=== PATIENT | female | born 1960 | race Caucasian/White ===

== ENCOUNTER → 2018-04-03 07:51 | Outpatient (CLI) | payer OTHER, SELFPAY ==
[2018-04-03 10:39] LABS: Anion Gap 6 (5-15); BUN 20 mg/dL (7-18); BUN/Creat Ratio 22.1 RATIO (10-20); Calcium,Total 9.3 mg/dL (8.5-10.1); Chloride 108 mmol/L (98-107); Cholesterol 236 mg/dL (200); Creatinine, Serum 0.91 mg/dL (0.55-1.02); EST Glomerular Filtration Rate 67 mL/min (>60); Est Glom Filt Rate - Afr Amer 82 mL/min (>60); Glucose 94 mg/dL (74-106); High Density Lipoprotein 62 mg/dL; Potassium 4.3 mmol/L (3.5-5.1); Sodium Level 142 mmol/L (136-145); Thyroid Stim Hormone (TSH) 1.63 uIU/mL (0.358-3.74); Triglycerides 166 mg/dL; Very Low Density Lipoprotein 33 mg/dL (5-40)
== END ==
PROVIDERS: Family Provider Family Medicine; PCP Family Medicine; Visit Provider Family Medicine
DX: E55.9 Vitamin D deficiency, unspecified (principal); E66.9 Obesity, unspecified; E78.00 Pure hypercholesterolemia, unspecified
CPT/HCPCS: 36415; 80048; 80061; 82306; 84443

== ENCOUNTER → 2018-05-07 06:15 | Outpatient (CLI) | payer OTHER, SELFPAY ==
--- NOTE | 2018-05-07 18:29 | STRESSREP ---
Stress Test Report Date: 05/07/2018 Procedure: Exercise tolerance test/imaging study Indications: Family history of coronary artery disease Consent: Per the patient Procedure: The patient exercised on a Anam protocol for 9 minutes and 15 seconds completing Stage III and 15 seconds of Stage IV achieving a peak heart rate of 162 bpm (100 % predicted maximal heart rate) with a peak blood pressure 164/68 mmHg and a peak MET capacity of 10 METs. The baseline ECG demonstrated normal sinus rhythm. The peak exercise ECG demonstrated no obvious ECG changes. There were no cardiac dysrhythmias pretest, during exercise, or recovery. The functional capacity was considered good. There was no complaint of chest discomfort during exercise or recovery. The examination was discontinued secondary to leg discomfort. Impression: 1. Technically adequate (percent predicted maximal heart rate greater than 85%) exercise tolerance test 2. Peak exercise ECG no obvious ECG changes 3. There were no cardiac dysrhythmias pretest, during exercise, or recovery. 4. Nuclear images pending Myocardial perfusion imaging study: Technique: The patient was injected with 11.2 mCi of technetium 99m Cardiolite and subsequently rest SPECT Cardiolite nuclear imaging was obtained in the horizontal long, vertical long, and short axis views. The patient exercised on a Anam protocol for 9 minutes and 15 seconds completing Stage III and 15 seconds of Stage IV achieving a peak heart rate of 162 bpm (100 % predicted maximal heart rate) with a peak blood pressure 164/68 mmHg and a peak MET capacity of 10 METs. The patient was injected with a 2.1 mCi of technetium 99m Cardiolite and subsequently stress SPECT Cardiolite nuclear imaging was obtained in the horizontal long, vertical long, and short axis views. A gated Cardiolite study at peak stress was obtained. Interpretation: Rest and stress SPECT Cardiolite nuclear imaging status post realignment, normalization, and attenuation correction, demonstrates the appearance of relative uniform tracer uptake and myocardial perfusion appearing within normal limits. There is end systolic thickening and brightening. The gated Cardiolite study demonstrates myocardial thickening and inward wall motion. The reported LVEF is 78 %. Impression: 1. Rest and stress SPECT Cardiolite nuclear imaging demonstrate relative uniform tracer uptake and myocardial perfusion appearing within normal limits. 2. The gated Cardiolite study reports an LVEF of 78 %. This note was generated with [employer] software. It may contain incorrect words, spelling, and punctuation that were not noted in checking the note before signing.
--- NOTE | 2018-05-07 18:34 | STRESSREP_ITS ---
Stress Test Report Date: 05/07/2018 Procedure: Exercise tolerance test/imaging study Indications: Family history of coronary artery disease Consent: Per the patient Procedure: The patient exercised on a Anam protocol for 9 minutes and 15 seconds completing Stage III and 15 seconds of Stage IV achieving a peak heart rate of 162 bpm (100 % predicted maximal heart rate) with a peak blood pressure 164/68 mmHg and a peak MET capacity of 10 METs. The baseline ECG demonstrated normal sinus rhythm. The peak exercise ECG demonstrated no obvious ECG changes. There were no cardiac dysrhythmias pretest, during exercise, or recovery. The functional capacity was considered good. There was no complaint of chest discomfort during exercise or recovery. The examination was discontinued secondary to leg discomfort. Impression: 1. Technically adequate (percent predicted maximal heart rate greater than 85% ) exercise tolerance test 2. Peak exercise ECG no obvious ECG changes 3. There were no cardiac dysrhythmias pretest, during exercise, or recovery. 4. Nuclear images pending Myocardial perfusion imaging study: Technique: The patient was injected with 11.2 mCi of technetium 99m Cardiolite and subsequently rest SPECT Cardiolite nuclear imaging was obtained in the horizontal long, vertical long, and short axis views. The patient exercised on a Anam protocol for 9 minutes and 15 seconds completing Stage III and 15 seconds of Stage IV achieving a peak heart rate of 162 bpm (100 % predicted maximal heart rate) with a peak blood pressure 164/68 mmHg and a peak MET capacity of 10 METs. The patient was injected with a 2.1 mCi of technetium 99m Cardiolite and subsequently stress SPECT Cardiolite nuclear imaging was obtained in the horizontal long, vertical long, and short axis views. A gated Cardiolite study at peak stress was obtained. Interpretation: Rest and stress SPECT Cardiolite nuclear imaging status post realignment, normalization, and attenuation correction, demonstrates the appearance of relative uniform tracer uptake and myocardial perfusion appearing within normal limits. There is end systolic thickening and brightening. The gated Cardiolite study demonstrates myocardial thickening and inward wall motion. The reported LVEF is 78 %. Impression: 1. Rest and stress SPECT Cardiolite nuclear imaging demonstrate relative uniform tracer uptake and myocardial perfusion appearing within normal limits. 2. The gated Cardiolite study reports an LVEF of 78 %. This note was generated with [employer] software. It may contain incorrect words, spelling, and punctuation that were not noted in checking the note before signing.
== END ==
PROVIDERS: Family Provider Family Medicine; PCP Family Medicine; Visit Provider Family Medicine
DX: Z82.49 Family history of ischemic heart disease and other diseases of the circulatory system (principal)
CPT/HCPCS: 78452; 93017; A9500; A4216

== ENCOUNTER → 2018-07-15 08:29 | Outpatient (CLI) | payer OTHER, SELFPAY ==
[2018-07-15 10:31] LABS: Vitamin D,25 Hydroxy 52.5 ng/mL (29.95-100.01)
== END ==
PROVIDERS: Family Provider Family Medicine; PCP Family Medicine; Visit Provider Family Medicine
DX: E55.9 Vitamin D deficiency, unspecified (principal)
CPT/HCPCS: 36415; 82306

== ENCOUNTER → 2018-07-29 15:41 | Outpatient (CLI) | payer OTHER, SELFPAY ==
--- NOTE | 2018-07-29 15:44 | ECHOD_ITS ---
Reason For Study: MYOCARDIAL HYPERTROPHY Procedure This was a 2D Doppler, Color Flow transthoracic echocardiogram. Exam performed in department. Left Ventricle Normal LV size. Left ventricular systolic function is normal. The estimated ejection fraction is 60 %. Transmitral diastolic flow velocities suggest mild (stage 1) diastolic dysfunction (reversed pattern). No regional wall motion abnormalities noted. Right Ventricle Normal RV size. Normal systolic function. Atria Normal left atrium. Normal right atrium. Mitral Valve Normal mitral valve. Tricuspid Valve Normal tricuspid valve. Mild tricuspid valve insufficiency. Pulmonary artery systolic pressure is 25 mmHg. Aortic Valve Normal aortic valve. Trisinus/trileaflet aortic valve. Pulmonic Valve Normal pulmonic valve. Great Vessels Normal aortic root. The pulmonary artery is normal size. Normal inferior vena cava. Pericardium/Pleural No pericardial effusion. MMode/2D Measurements & Calculations LVIDd: 3.8 cm IVSd: 1.1 cm Ao root diam: 3.4 cm LVIDs: 2.2 cm LVPWd: 1.1 cm RVDd: 2.8 cm FS: 42.0 % LAV(MOD-bp): 40.8 ml LA A4 area: 15.5 cm2 RA A4 area: 14.5 cm2 LAV(MOD-bp) Indexed: 25.0 ml/m2 LAV(MOD-sp2): 41.5 ml LAV(MOD-sp4): 37.6 ml Time Measurements MV dec time: 0.18 sec Doppler Measurements & Calculations MV E max sammy: 63.5 cm/sec Lat Peak E' Sammy: 10.4 cm/sec Med Peak E' Sammy: 7.0 cm/sec MV A max sammy: 66.9 cm/sec E/E' lat: 6.1 E/E' med: 9.0 MV E/A: 0.95 Ao V2 max: 109.7 cm/sec LV V1 max: 101.6 cm/sec TR max sammy: 227.7 cm/sec Ao max P.8 mmHg LV V1 max P.1 mmHg TR max P.8 mmHg Interpretation Summary Normal LV size. Left ventricular systolic function is normal. The estimated ejection fraction is 60 %. Transmitral diastolic flow velocities suggest mild (stage 1) diastolic dysfunction (reversed pattern). Mild tricuspid valve insufficiency. Ordering Physician: Neno eLe Referring Physician: Neno Lee Performed By: Lila Nation, KERI, RVT
== END ==
PROVIDERS: Family Provider Family Medicine; PCP Family Medicine; Visit Provider Family Medicine
DX: I51.7 Cardiomegaly (principal)
CPT/HCPCS: 93306

== ENCOUNTER → 2018-10-08 08:08 | Outpatient (CLI) | payer OTHER, SELFPAY ==
--- NOTE | 2018-10-08 08:11 | BI_ITS ---
MAMMOGRAPHY - BILATERAL SCREENING REASON FOR EXAM: Female, 57 years old. Routine annual screening examination. PERTINENT HISTORY: Non-contributory. TECHNIQUE: Digital bilateral breast david (3D mammographic acquisition) in the CC and MLO projections. 2-D mediolateral oblique (MLO) and craniocaudad (CC) views of both breasts were obtained. CAD: Full Field Digital Mammography with Computer Added Detection was performed. COMPARISON: Comparison is made with prior study dated September 28, 2017 and September 25, 2016. FINDINGS: Breast Composition: There are scattered areas of fibroglandular density. There are no dominant masses or suspicious calcifications. Stable small benign-appearing bilateral axillary lymph nodes. No other significant abnormalities are identified. There has been no significant change since the prior study. BI/SCREENING MAMM (CAD), BILAT IMPRESSION: Stable bilateral screening mammogram. Yearly follow-up mammogram recommended. (A) ASSESSMENT CATEGORY: BIRADS Category 2: Benign. A letter regarding these results will be sent to the patient by the facility within 30 days. Approximately 10% of breast cancers are not detected by mammography. A normal mammogram should not delay biopsy of a clinically suspicious abnormality. [id number] Electronically Signed: Lawrence Mccoy MD at 9:16 EST Tel [phone], Service support ,
== END ==
PROVIDERS: Family Provider Family Medicine; PCP Family Medicine; Visit Provider Obstetrics & Gynecology
DX: Z12.31 Encounter for screening mammogram for malignant neoplasm of breast (principal)
CPT/HCPCS: 77063; 77067

== ENCOUNTER → 2018-10-09 10:22 | Outpatient (CLI) | payer OTHER, SELFPAY ==
--- NOTE | 2018-10-09 10:28 | US_ITS ---
STUDY: RENAL ULTRASOUND - COMPLETE REASON FOR EXAM: Female, 57 years old. Renal cyst. Hematuria. TECHNIQUE: Ultrasound evaluation of the kidneys was performed with real-time and static yuan-scale imaging. COMPARISON: 08/28/2017. FINDINGS: RIGHT KIDNEY: Normal location of the right kidney, which is normal in size. The right kidney measures 11.0 x 3.7 x 4.2 cm. There is a normal cortex of the right kidney. The renal cortex measures 1.4 cm. There is no right renal mass or cyst. There are no right renal calculi. There is no right hydronephrosis. DISTAL RIGHT URETER: There is non-visualization of the distal right ureter. There is no demonstrated right ureterovesical junction calculus. There is a visualized right ureteral jet. LEFT KIDNEY: Normal location of the left kidney, which is normal in size. The left kidney measures 11.8 x 5.2 x 6.3 cm. There is a normal cortex of the left kidney. The renal cortex measures 1.2 cm. 2 stable renal cysts. One measures 4.2 cm and the other measures 1.3 cm. There are no left renal calculi. There is no left hydronephrosis. DISTAL LEFT URETER: There is non-visualization of the distal left ureter. There is no demonstrated left ureterovesical junction calculus. There is a visualized left ureteral jet. BLADDER: The distended urinary bladder has a volume of 77 ml. There is a normal wall thickness of the distended urinary bladder. There is no demonstrated mass within the urinary bladder. There are no demonstrated bladder calculi. US/Kidney and Bladder IMPRESSION: No acute abnormality. Stable left renal cyst measuring 1.3 and 4.2 cm. Electronically Signed: Westley Huntley MD at 23:51 EST , Service support ,
== END ==
PROVIDERS: Family Provider Family Medicine; PCP Family Medicine; Referring Provider Urology; Visit Provider Urology
DX: N28.1 Cyst of kidney, acquired (principal); R31.9 Hematuria, unspecified
CPT/HCPCS: 76770

== ENCOUNTER → 2018-11-18 14:36 | Outpatient (CLI) | payer OTHER, SELFPAY ==
[2018-11-18 15:43] LABS: Hematocrit 42.2 % (37-47); Hemoglobin 13.4 g/dl (12.0-15.0); Mean Corp Hgb Conc 31.8 g/gl (32-36); Mean Corpuscular Hgb 28.9 pg (27.0-32.0); Mean Corpuscular Volume 90.9 fL (81-99); Mean Platelet Vol. 9.2 fl (6.2-12.0); Platelet Count 220 K/mm3 (150-450); RBC Distribution Width CV 13.1 % (11.6-14.6); Red Blood Count 4.64 M/mm3 (4.2-5.4); White Blood Count 5.4 K/mm3 (4.4-11.0)
[2018-11-18 15:51] LABS: Scan Indicated on CBC? Y/N NO
[2018-11-18 16:28] LABS: Anion Gap 9 (5-15); BUN 21 mg/dL (7-18); BUN/Creat Ratio 26.4 RATIO (10-20); Calcium,Total 9.6 mg/dL (8.5-10.1); Chloride 104 mmol/L (98-107); EST Glomerular Filtration Rate 78 mL/min (>60); Est Glom Filt Rate - Afr Amer 95 mL/min (>60); Glucose 95 mg/dL (74-106); Magnesium 2.1 mg/dL (1.6-2.6); Potassium 3.8 mmol/L (3.5-5.1); Sodium Level 140 mmol/L (136-145); Thyroid Stim Hormone (TSH) 0.98 uIU/mL (0.358-3.74)
== END ==
PROVIDERS: Family Provider Family Medicine; PCP Family Medicine; Visit Provider Family Medicine
DX: R55 Syncope and collapse (principal)
CPT/HCPCS: 36415; 80048; 83735; 84443; 85027

== ENCOUNTER → 2019-03-12 | Outpatient (CLI) | payer OTHER, SELFPAY ==
[2019-03-12 10:35] LABS: Cholesterol 251 mg/dL (200); High Density Lipoprotein 71 mg/dL; Triglycerides 129 mg/dL; Very Low Density Lipoprotein 26 mg/dL (5-40)
[2019-03-12 10:44] LABS: Vitamin D,25 Hydroxy 42.4 ng/mL (29.95-100.01)
== END | disposition home or self-care (01) ==
LOC: MTLAB 07:45
PROVIDERS: Family Provider Family Medicine; PCP Family Medicine; Referring Provider Family Medicine; Visit Provider Family Medicine
DX: E78.00 Pure hypercholesterolemia, unspecified (principal); E55.9 Vitamin D deficiency, unspecified
CPT/HCPCS: 36415; 80061; 82306

== ENCOUNTER → 2019-06-20 | Outpatient (CLI) | payer OTHER, SELFPAY ==
[2019-06-20 12:57] LABS: PTHIN 66.1 pg/mL (18.4-80.1); Vitamin D,25 Hydroxy 58.3 ng/mL (29.95-100.01)
[2019-06-20 13:01] LABS: Anion Gap 6 (5-15); BUN 24 mg/dL (7-18); Calcium,Total 8.9 mg/dL (8.5-10.1); Chloride 110 mmol/L (98-107); Cholesterol 239 mg/dL (200); Creatinine, Serum 0.89 mg/dL (0.55-1.02); EST Glomerular Filtration Rate 69 mL/min (>60); Est Glom Filt Rate - Afr Amer 83 mL/min (>60); Glucose 81 mg/dL (74-106); High Density Lipoprotein 65 mg/dL; Magnesium 2.3 mg/dL (1.6-2.6); Potassium 4.1 mmol/L (3.5-5.1); Sodium Level 142 mmol/L (136-145); Thyroid Stim Hormone (TSH) 1.04 uIU/mL (0.358-3.74); Triglycerides 99 mg/dL; Very Low Density Lipoprotein 20 mg/dL (5-40)
== END | disposition home or self-care (01) ==
LOC: MFPLAB 09:25
PROVIDERS: Family Provider Family Medicine; PCP Family Medicine; Referring Provider Family Medicine; Visit Provider Family Medicine
DX: I10 Essential (primary) hypertension (principal); M85.80 Other specified disorders of bone density and structure, unspecified site; E78.00 Pure hypercholesterolemia, unspecified
CPT/HCPCS: 36415; 80048; 80061; 82306; 82330; 83735; 83970; 84443

== ENCOUNTER → 2019-10-09 07:13 | Outpatient (CLI) | payer OTHER, SELFPAY ==
--- NOTE | 2019-10-09 07:14 | BI_ITS ---
MAMMOGRAPHY - BILATERAL SCREENING REASON FOR EXAM: Female, 58 years old. Routine annual screening examination. PERTINENT HISTORY: Non-contributory. TECHNIQUE: Digital bilateral breast nawaf (3D mammographic acquisition) in the CC and MLO projections. 2-D mediolateral oblique (MLO) and craniocaudad (CC) views of both breasts were obtained. CAD: Full Field Digital Mammography with Computer Added Detection was performed. COMPARISON: Comparison is made with prior study dated October 08, 2018 and September 28, 2017. FINDINGS: Breast Composition: There are scattered areas of fibroglandular density. There are no dominant masses or suspicious calcifications. Stable small bilateral axillary lymph nodes. No other significant abnormalities are identified. There has been no significant change since the prior study. BI/SCREEN MAMM (CAD) W/NAWAF BILAT IMPRESSION: Stable bilateral screening mammogram. Yearly follow-up mammogram recommended. (A) ASSESSMENT CATEGORY: BIRADS Category 2: Benign. A letter regarding these results will be sent to the patient by the facility within 30 days. Approximately 10% of breast cancers are not detected by mammography. A normal mammogram should not delay biopsy of a clinically suspicious abnormality. [id number] Electronically Signed: Lawrence Mccoy, at 9:44 EST , Service support ,
== END ==
PROVIDERS: Family Provider Family Medicine; PCP Family Medicine; Referring Provider Obstetrics & Gynecology; Visit Provider Obstetrics & Gynecology
DX: Z12.31 Encounter for screening mammogram for malignant neoplasm of breast (principal)
CPT/HCPCS: 77063; 77067

== ENCOUNTER → 2019-12-30 09:13 | Outpatient (CLI) | payer OTHER, SELFPAY ==
--- NOTE | 2019-12-30 09:17 | RAD_ITS ---
STUDY: X-RAY - LEFT KNEE REASON FOR EXAM: Female, 59 years old. chronic pain, increasing recently, no injury TECHNIQUE: view(s) of the knee. COMPARISON: None. FINDINGS: Normal visualized distal femur. Normal visualized proximal tibia and fibula. Normal proximal tibiofibular articulation. Normal medial femorotibial compartment. Normal lateral femorotibial compartment. Normal patellofemoral articulation. The soft tissue structures are unremarkable. RAD/Knee 4 or More Views IMPRESSION: Normal x-ray examination of the left knee. Electronically Signed: Yordan Franks, at 13:01 EST Tel , Service support ,
--- NOTE | 2019-12-30 09:17 | RAD_ITS ---
STUDY: X-RAY - RIGHT KNEE REASON FOR EXAM: Chronic pain, increasing recently, no specific injury. TECHNIQUE: 4 view(s) of the knee. COMPARISON: None. FINDINGS: Normal visualized distal femur. Normal visualized proximal tibia and fibula. Normal proximal tibiofibular articulation. Normal medial femorotibial compartment. Normal lateral femorotibial compartment. Normal patellofemoral articulation. The soft tissue structures are unremarkable. RAD/Knee 4 or More Views IMPRESSION: Normal x-ray examination of the right knee. Electronically Signed: Bryan Harding MD at 9:55 EST Tel , Service support ,
== END ==
PROVIDERS: PCP Family Medicine; Referring Provider Family Medicine; Visit Provider Family Medicine
DX: M25.561 Pain in right knee (principal); M25.562 Pain in left knee
CPT/HCPCS: 73564

== ENCOUNTER 2020-01-12 13:56 | Outpatient (RCR) | payer OTHER, SELFPAY ==
--- NOTE | 2020-01-12 14:56 | HP.PTEVAL_ITS ---
Patient's Visit Information JING REBOLLAR is a 59 year old F referred to Physical Therapy by Jim Lee MD with a diagnosis of Bilateral Knee Pain. Date of Evaluation: 01/12/20 Physical Therapist: Franca Vitale DPT - Visit Plan Frequency: 2x /Week Duration: 4 Weeks Plan: Focus on LE and core strength/stabilization. HEP Given 01/11: Iso abs, Bridge, clam, SLR - Subjective Subjective: Patient reports that she is really flat footed and has led to knee pain her whole life left>right. Was in cycling that really helped. 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 She is very active- walks long distances. She has knee pain on both sides left>right. Dr. Lee noticed that the interior muscles (VMO) where weak and her patellas are off line. He thought PT would help. Xrays which were normal0 but they think its more cartilage related. Agg: sitting to long, stairs (up), being in a bent position, squatting . Worst: 5/10 it keeps her awake. Best: 0/10 Eases: moving out of the bent positon or getting up and moving. Pain is located on the distal knee cap. Reports the pain is dull and achy. Sleep: disturbed. No radiating pain- no N/T. Has cracking noises and feels like it catches on something but does not buckle. Wears orthotics and good tennis shoes. Has a complete foot brace that goes past the ankle on the right. PMHx: HTN, asthma Meds: losartin, emergency inhaler - Objective Posture: FH, RS, can correct but does not maintain. Gait: no deviation noted- increased varus at the knees bilaterally. Palpation: tender along medial joint line bilaterally. Observation: patellar tracking: mild laterally bilateral. Stairs: asc/desc 8 recip with 2 HR- poor control with descent. HR/TR: able. Squat: poor mechanics- increased varus with squat- heel lift. ROM: 0-135 degrees. Strength: Ankle: 5/5, Knee: extn: 4+/5 Flexion: 4/5, Hip: 4/5 throughout Core: fair minus. Flex: HS: moderate, Gastroc: moderate. Special Test: LLD: negative, Pelvic Alignment:WNL - Goals Goal 1:: Patient will be I with HEP and progression Goal Time Frame: 4-6 Weeks Goal 2:: Patient will maintain proper posture t/o tx session to demo increased core s/s Goal Time Frame: 4-6 Weeks Goal 3:: Patient will demo normal squat pattern Goal Time Frame: 4-6 Weeks Goal 4:: Patient will report 0/10 pain for 1 week Goal Time Frame: 4-6 Weeks - Rehabilitation Potential Physical Therapy Diagnosis: Patient presents with hypomobility- she has decreased core and LE strength/stabilization leading to increased pain with ADL's. Rehabilitation Potential: Good - Anticipated Interventions Patient/Client Instruction: Educate patient on: Benefits of Fitness Program Therapeutic Exercise to Include: Strength training, Endurance training, Balance training, Body mechanics, Postural training, Flexibilty training, Gait and locomotor training, Passive ROM, Active ROM, Dynamic Lumbar Stabilization For the Purpose of:: To improve muscle performance and motor function TENS: Yes Cryotherapy (ice pack, ice massage): Yes Thermo therapy (hot pack): Yes Ultrasound (thermal/non thermal): Yes Thank you for the opportunity to evaluate your patient. For Medicare and Medicare HMO plans, please review the plan of care and approve it. It will need to be FAXED BACK to us at [phone] for Medicare purposes. For Medicare only, by signing this I certify the plan of care. Please let me know if there are questions or concerns regarding this plan of care. Physician Signature: Date:
--- NOTE | 2020-04-06 08:47 | HP.PT.NRP ---
JING REBOLLAR was seen in my office for initial evaluation on 01/12/20. The following Plan of Care was established for this patient: Initial Frequency: 2x /Week Initial Duration: 4 Weeks Patient/Client Instruction: Educate patient on: Benefits of Fitness Program Therapeutic Exercise to Include: Strength training, Endurance training, Balance training, Body mechanics, Postural training, Flexibilty training, Gait and locomotor training, Passive ROM, Active ROM, Dynamic Lumbar Stabilization For the Purpose of:: To improve muscle performance and motor function TENS: Yes Cryotherapy (ice pack, ice massage): Yes Thermo therapy (hot pack): Yes Ultrasound (thermal/non thermal): Yes This patient was last seen in our office . Pertinent comments regarding their Physical therapy will appear below: Called and left message for patient to follow up after COVID19 At this point I will be discontinuing this patient from physical therapy. I would be happy to see this patient again in the future if found appropriate by the physician. Thank you! Franca Vitale DPT
== END 2020-01-12 19:00 | disposition home or self-care (01) ==
LOC: PT 13:56
PROVIDERS: PCP Family Medicine; Visit Provider Family Medicine
DX: M25.562 Pain in left knee (principal); M25.561 Pain in right knee
CPT/HCPCS: 97110; 97161

== ENCOUNTER 2020-06-17 13:06 | Outpatient (RCR) | payer OTHER, SELFPAY | END 2020-07-05 23:59 | LOC: NS 13:06 | PROVIDERS: PCP Family Medicine; Visit Provider Family Medicine | DX: Z71.3 Dietary counseling and surveillance (principal); E66.3 Overweight; Z68.27 Body mass index [BMI] 27.0-27.9, adult | CPT/HCPCS: 97802 ==

== ENCOUNTER → 2020-06-22 09:01 | Outpatient (CLI) | payer OTHER, SELFPAY ==
[2020-06-22 10:50] LABS: PTHIN 62.2 pg/mL (18.4-80.1); Vitamin D,25 Hydroxy 71.3 ng/mL
[2020-06-22 10:59] LABS: Anion Gap 6 (5-15); BUN 20 mg/dL (7-18); BUN/Creat Ratio 22.9 RATIO (10-20); Calcium,Total 8.9 mg/dL (8.5-10.1); Chloride 110 mmol/L (98-107); Cholesterol 248 mg/dL (200); Creatinine, Serum 0.88 mg/dL (0.55-1.02); EST Glomerular Filtration Rate 70 mL/min (>60); Est Glom Filt Rate - Afr Amer 84 mL/min (>60); Glucose 96 mg/dL (74-106); High Density Lipoprotein 64 mg/dL; Magnesium 2.2 mg/dL (1.6-2.6); Sodium Level 140 mmol/L (136-145); Thyroid Stim Hormone (TSH) 0.96 uIU/mL (0.358-3.74); Triglycerides 115 mg/dL; Very Low Density Lipoprotein 23 mg/dL (5-40)
== END ==
PROVIDERS: PCP Family Medicine; Referring Provider Family Medicine; Visit Provider Family Medicine
DX: Z00.00 Encounter for general adult medical examination without abnormal findings (principal); I10 Essential (primary) hypertension; E78.00 Pure hypercholesterolemia, unspecified; E55.9 Vitamin D deficiency, unspecified
CPT/HCPCS: 36415; 80048; 80061; 82306; 82330; 83735; 83970; 84443

== ENCOUNTER 2020-07-14 09:27 | Outpatient (RCR) | payer OTHER, SELFPAY | END 2020-08-04 23:59 | LOC: NS 09:27 | PROVIDERS: PCP Family Medicine; Visit Provider Family Medicine | DX: Z71.3 Dietary counseling and surveillance (principal); E66.3 Overweight; Z68.27 Body mass index [BMI] 27.0-27.9, adult | CPT/HCPCS: 97803 ==

== ENCOUNTER → 2020-08-23 16:05 | Outpatient (CLI) | payer OTHER, SELFPAY ==
--- NOTE | 2020-08-23 16:25 | CT_ITS ---
STUDY: CT ABDOMEN AND PELVIS WITH CONTRAST REASON FOR EXAM: Female, 59 years old. ISCHEMIC COLITIS, DIARRHEA, PARTIAL HYSTERECTOMY, HX CYST REMOVAL ON LEFT KIDNEY RADIATION DOSAGE (If Supplied By Facility): CTDIvol = ( 8.28 ) mGy, DLP = ( 635.53 ) mGycm TECHNIQUE: Transaxial images were obtained from the dome of the diaphragm to the symphysis pubis with oral contrast. Oral and IV Gastrografin and amp;amp; 100mL Isovue-300 was administered. Sagittal and coronal images were reconstructed. Individualized dose optimization techniques were used for this CT. COMPARISON: 09/04/2013. FINDINGS: The visualized lung bases are unremarkable. The visualized portions of the heart are within normal limits. Normal liver. Normal gallbladder and extrahepatic biliary system. Normal spleen. Normal pancreas. Normal bilateral adrenal glands. Normal right kidney with incidental extrarenal pelvis. Left kidney shows mild hydronephrosis and hydroureter without a definite obstructing stone, but possibly related to abnormal sigmoid-see below Stable 5.5 cm mid left renal cyst with some calcifications of the wall. Normal visualized stomach. Normal small intestine. Markedly thickened sigmoid wall with numerous diverticuli with mild perisigmoid stranding. Findings are most consistent with a long segment of low-grade diverticulitis, but a more significant process is not excluded and colonoscopy is recommended. The appendix is visualized and appears normal. Normal abdominal aorta. Normal inferior vena cava. Normal retroperitoneum. Normal urinary bladder. There is absence of the uterus consistent with a prior hysterectomy. Normal abdominal wall. There are diffuse degenerative changes of the visualized lumbar spine. CT/Abdomen/Pelvis WITH Contrast IMPRESSION: Abnormal appearance of the sigmoid colon most consistent with long segment low-grade diverticulitis without perforation or abscess. However colitis or even neoplasm not excluded. Colonoscopy is recommended. The abnormal sigmoid appears to be causing left hydronephrosis and hydroureter. Electronically Signed: Westley Huntley MD at 20:07 EDT , Service support ,
[2020-08-23 18:50] LABS: CREATININE FINGERSTICK 0.7 mg/dL (0.55-1.02)
== END ==
PROVIDERS: PCP Family Medicine; Referring Provider Internal Medicine Gastroenterology; Visit Provider Internal Medicine Gastroenterology
DX: K55.9 Vascular disorder of intestine, unspecified (principal)
CPT/HCPCS: 74177; Q9967

== ENCOUNTER 2020-08-30 13:30 | Outpatient (RCR) | payer OTHER, SELFPAY | END 2020-09-04 23:59 | LOC: NS 13:30 | PROVIDERS: PCP Family Medicine; Visit Provider Family Medicine | DX: Z71.3 Dietary counseling and surveillance (principal); E66.3 Overweight; Z68.27 Body mass index [BMI] 27.0-27.9, adult | CPT/HCPCS: 97803 ==

== ENCOUNTER 2020-09-20 15:58 | Outpatient (RCR) | payer OTHER, SELFPAY | END 2020-10-04 23:59 | LOC: NS 15:58 | PROVIDERS: PCP Family Medicine; Visit Provider Family Medicine | DX: Z71.3 Dietary counseling and surveillance (principal); E66.3 Overweight; Z68.27 Body mass index [BMI] 27.0-27.9, adult | CPT/HCPCS: 97803 ==

== ENCOUNTER → 2020-10-11 10:09 | Outpatient (CLI) | payer OTHER, SELFPAY ==
--- NOTE | 2020-10-11 10:12 | BI_ITS ---
MAMMOGRAPHY - BILATERAL SCREENING REASON FOR EXAM: Female, 59 years old. Routine annual screening examination. PERTINENT HISTORY: Non-contributory. TECHNIQUE: Digital bilateral breast nawaf (3D mammographic acquisition) in the CC and MLO projections. 2-D mediolateral oblique (MLO) and craniocaudad (CC) views of both breasts were obtained. CAD: Full Field Digital Mammography with Computer Added Detection was performed. COMPARISON: Comparison is made with prior study dated 10/09/2019 and 10/08/2018. FINDINGS: Breast Composition: There are scattered areas of fibroglandular density. There are no dominant masses or suspicious calcifications. Stable benign-appearing bilateral axillary lymph nodes. No other significant abnormalities are identified. There has been no significant change since the prior study. BI/SCREEN MAMM (CAD) W/NAWAF BILAT IMPRESSION: Stable bilateral screening mammogram. Yearly follow-up mammogram recommended. (A) ASSESSMENT CATEGORY: BIRADS Category 2: Benign. A letter regarding these results will be sent to the patient by the facility within 30 days. Approximately 10% of breast cancers are not detected by mammography. A normal mammogram should not delay biopsy of a clinically suspicious abnormality. [id number] Electronically Signed: Lawrence Mccoy, at 11:07 EST , Service support ,
== END ==
PROVIDERS: PCP Family Medicine; Referring Provider Obstetrics & Gynecology; Visit Provider Obstetrics & Gynecology
DX: Z12.31 Encounter for screening mammogram for malignant neoplasm of breast (principal)
CPT/HCPCS: 77063; 77067

== ENCOUNTER → 2020-10-19 13:10 | Outpatient (CLI) | payer OTHER, SELFPAY ==
--- NOTE | 2020-10-19 13:20 | RAD_ITS ---
STUDY: BARIUM ENEMA. REASON FOR EXAM: Female, 59 years old. INCOMPLETE COLONOSCOPY TODAY. HX OF RECTAL BLEEDING AND DIVERTICULITIS. FLUOROSCOPY TIME (if supplied): ( 56 seconds ) minutes/seconds. 13 images were obtained. TECHNIQUE: Contrast was introduced retrograde through the rectum. The entire colon was opacified. COMPARISON: None. FINDINGS: There is redundancy of the sigmoid colon. No evidence of obstruction to the full of contrast. No evidence of diverticulosis. No filling defect is seen. RAD/Barium Enema No Air Cont IMPRESSION: Redundancy of the sigmoid colon. No mass lesion or obstructive abnormality is seen. Electronically Signed: Lawrence Mccoy, at 14:21 EST , Service support ,
== END ==
PROVIDERS: PCP Family Medicine; Visit Provider Internal Medicine Gastroenterology
DX: Z53.9 Procedure and treatment not carried out, unspecified reason (principal)
CPT/HCPCS: 74270

== ENCOUNTER 2020-10-25 09:54 | Outpatient (RCR) | payer OTHER, SELFPAY | END 2020-11-04 23:59 | disposition home or self-care (01) | LOC: NS 09:54 | PROVIDERS: PCP Family Medicine; Visit Provider Family Medicine | DX: Z71.3 Dietary counseling and surveillance (principal); E66.3 Overweight; Z68.27 Body mass index [BMI] 27.0-27.9, adult | CPT/HCPCS: 97802 ==

== ENCOUNTER → 2020-12-22 07:51 | Outpatient (CLI) | payer OTHER, SELFPAY ==
[2020-12-22 10:49] LABS: ALB/GLOB Ratio 1.2 RATIO (0.9-2.4); AST(SGOT) 25 U/L (15-37); Alanine Aminotransfer ALT/SGPT 33 U/L (13-56); Alkaline Phosphatase 92 U/L (45-117); Anion Gap 5 (5-15); BUN 25 mg/dL (7-18); BUN/Creat Ratio 26.1 RATIO (10-20); Calcium,Total 9.3 mg/dL (8.5-10.1); Chloride 107 mmol/L (98-107); Creatinine, Serum 0.96 mg/dL (0.55-1.02); EST Glomerular Filtration Rate 63 mL/min (>60); Est Glom Filt Rate - Afr Amer 76 mL/min (>60); Globulin 3.3 g/dL (2.2-4.2); Glucose 95 mg/dL (74-106); Magnesium 2.2 mg/dL (1.6-2.6); Potassium 4.4 mmol/L (3.5-5.1); Protein, Total 7.3 g/dL (6.4-8.2); Sodium Level 141 mmol/L (136-145); Thyroid Stim Hormone (TSH) 1.39 uIU/mL (0.358-3.74)
[2020-12-22 10:56] LABS: PTHIN 46.3 pg/mL (18.4-80.1)
== END ==
PROVIDERS: PCP Family Medicine; Referring Provider Family Medicine; Visit Provider Family Medicine
DX: E78.00 Pure hypercholesterolemia, unspecified (principal); I10 Essential (primary) hypertension
CPT/HCPCS: 36415; 80053; 83735; 83970; 84443

== ENCOUNTER → 2021-07-13 07:54 | Outpatient (CLI) | payer OTHER, SELFPAY ==
[2021-07-13 10:21] LABS: Vitamin D,25 Hydroxy 60.6 ng/mL
[2021-07-13 10:38] LABS: Cholesterol 292 mg/dL (200); High Density Lipoprotein 66 mg/dL; Triglycerides 196 mg/dL; Very Low Density Lipoprotein 39 mg/dL (5-40)
== END ==
PROVIDERS: PCP Family Medicine; Referring Provider Family Medicine; Visit Provider Family Medicine
DX: I10 Essential (primary) hypertension (principal); E78.00 Pure hypercholesterolemia, unspecified
CPT/HCPCS: 36415; 80061; 82306

== ENCOUNTER → 2021-08-11 13:14 | Outpatient (CLI) | payer OTHER, SELFPAY ==
--- NOTE | 2021-08-11 13:18 | CT_ITS ---
STUDY: CARDIAC CALCIUM SCORING - CT CHEST REASON FOR EXAM: Female, 60 years old. Calcium scoring. RADIATION DOSAGE (If Supplied By Facility): CTDIvol = ( 12.19 ) mGy, DLP = ( 219.42 ) mGycm TECHNIQUE: Axial non-enhanced images were acquired through the heart for the sole purpose of measuring coronary artery calcium. Individualized dose optimization techniques were used for this CT. COMPARISON: None. FINDINGS: This portion of the report is being generated solely for the evaluation of noncoronary artery structures which have been assessed on plain another report. The visualized lungs are clear. There is no pleural effusion. The heart is normal in size. Coronary artery calcifications. There is no mediastinal lymphadenopathy. Visualized portions of the pulmonary arteries and thoracic aorta are unremarkable. Degenerative changes of the thoracic spine. Question small hiatal hernia. The visualized portions of the abdomen are normal. CT/Limited Chest CT w/CCTA IMPRESSION: No evidence of significant anatomic abnormality. Electronically Signed: Demetrio Weston DO at 23:56 EDT Tel [phone], Service support ,
[2021-08-11 13:27] VITALS: BP 160/73; PULSE 72; RESP 16; O2SAT 100; BMI 27.3
--- NOTE | 2021-08-11 18:09 | CA.SCORE ---
Calcium Scoring Date of Study:: 08/11/21 Coronary Calcium Scoring: High-resolution Computed Tomographic imaging of the chest was performed on 08/11/2021 with particular attention paid to the coronary arteries. Images from the examination were analyzed for the presence and extent of coronary artery calcification , using coronary calcium quantification software. The patient tolerated the procedure well and there were no complications. The results of the coronary calcification analysis are provided below. Findings Coronary Artery Left Main (LM): 80.7 Left Anterior Descending (LAD): 56.8 Left Circumflex (LCX): 0 Right Coronary Artery (RCA): 164 Total Agatston Score: 301.5 Percentile Ranking: According to prepublished reference tables greater than 90% of people of the same gender and/or similar age had the same and/or lower scores. Calcium Scoring Interpretation: 0 No identifiable atherosclerotic plaque. Very low cardiovascular disease risk. <5% chance of presence coronary artery disease A Negative Examination 1-10 Minimal Plaque burden. Significant coronary artery disease very unlikely. 11-100 Mild plaque burden. Likely mild or minimal coronary atherosclerosis. 101-400 Moderate plaque burden Moderate non-obstructive coronary artery disease highly likely. Over 400 Extensive plaque burden. High likelihood of at least one significant coronary stenosis (>50% diameter) Calcium Score: 101 - 400 Moderate non-obstructive coronary artery disease highly like Conclusion: Continue cardiovascular eval duration and care as deemed appropriate. This note was generated using a voice recognition system and there may be incorrect words, spelling or punctuation that were not noted when reviewing the office note prior to saving.
== END ==
PROVIDERS: PCP Family Medicine; Referring Provider Family Medicine; Visit Provider Family Medicine
DX: E78.00 Pure hypercholesterolemia, unspecified (principal)
CPT/HCPCS: 75571; 76380

== ENCOUNTER → 2021-10-11 07:49 | Outpatient (CLI) | payer OTHER, SELFPAY ==
[2021-10-11 10:48] LABS: ALB/GLOB Ratio 1.1 RATIO (0.9-2.4); AST(SGOT) 22 U/L (15-37); Alanine Aminotransfer ALT/SGPT 37 U/L (13-56); Albumin, Serum 3.8 g/dL (3.2-5.0); Alkaline Phosphatase 79 U/L (45-117); Anion Gap 5 (5-15); BUN 24 mg/dL (7-18); BUN/Creat Ratio 25.8 RATIO (10-20); Calcium,Total 9.3 mg/dL (8.5-10.1); Chloride 108 mmol/L (98-107); Creatinine, Serum 0.93 mg/dL (0.55-1.02); EST Glomerular Filtration Rate 65 mL/min (>60); Est Glom Filt Rate - Afr Amer 78 mL/min (>60); Globulin 3.6 g/dL (2.2-4.2); Glucose 97 mg/dL (74-106); Potassium 4.1 mmol/L (3.5-5.1); Protein, Total 7.4 g/dL (6.4-8.2); Sodium Level 142 mmol/L (136-145)
[2021-10-11 10:51] LABS: Cholesterol 164 mg/dL (200); High Density Lipoprotein 78 mg/dL; Triglycerides 88 mg/dL; Very Low Density Lipoprotein 18 mg/dL (5-40)
== END ==
PROVIDERS: PCP Family Medicine; Referring Provider Family Medicine; Visit Provider Family Medicine
DX: I10 Essential (primary) hypertension (principal); E78.00 Pure hypercholesterolemia, unspecified
CPT/HCPCS: 36415; 80053; 80061

== ENCOUNTER → 2021-10-14 07:18 | Outpatient (CLI) | payer OTHER, SELFPAY ==
--- NOTE | 2021-10-14 07:04 | BI_ITS ---
MAMMOGRAPHY - BILATERAL SCREENING REASON FOR EXAM: Female, 60 years old. Routine annual screening examination. PERTINENT HISTORY: Non-contributory. TECHNIQUE: Digital bilateral breast nawaf (3D mammographic acquisition) in the CC and MLO projections. 2-D mediolateral oblique (MLO) and craniocaudad (CC) views of both breasts were obtained. CAD: Full Field Digital Mammography with Computer Added Detection was performed. COMPARISON: Comparison is made with prior study dated 10/11/2020 and 10/09/2019. FINDINGS: Breast Composition: The breasts are almost entirely fatty. There are no dominant masses or suspicious calcifications. Stable asymmetry of breast tissue were more breast tissue is seen in the upper-outer quadrant of the right breast. Stable small benign-appearing bilateral axillary lymph nodes. No other significant abnormalities are identified. There has been no significant change since the prior study. BI/SCRN MAMM (CAD)W/NAWAF BILAT IMPRESSION: Stable bilateral screening mammogram. Yearly follow-up mammogram recommended. (A) ASSESSMENT CATEGORY: BIRADS Category 2: Benign. A letter regarding these results will be sent to the patient by the facility within 30 days. Approximately 10% of breast cancers are not detected by mammography. A normal mammogram should not delay biopsy of a clinically suspicious abnormality. [id number] Electronically Signed: Lawrence Mccoy MD at 8:09 EST , Service support ,
== END ==
PROVIDERS: PCP Family Medicine; Referring Provider Obstetrics & Gynecology; Visit Provider Obstetrics & Gynecology
DX: Z12.31 Encounter for screening mammogram for malignant neoplasm of breast (principal)
CPT/HCPCS: 77063; 77067

== ENCOUNTER → 2022-04-21 | Outpatient (CLI) | payer OTHER, SELFPAY ==
[2022-04-21 10:16] LABS: PTHIN 39.2 pg/mL (18.4-80.1)
[2022-04-21 10:19] LABS: Vitamin D,25 Hydroxy 58.3 ng/mL
[2022-04-21 10:31] LABS: ALB/GLOB Ratio 1.2 RATIO (0.9-2.4); AST(SGOT) 24 U/L (15-37); Alanine Aminotransfer ALT/SGPT 35 U/L (13-56); Albumin, Serum 3.7 g/dL (3.2-5.0); Alkaline Phosphatase 71 U/L (45-117); Anion Gap 6 (5-15); BUN 19 mg/dL (7-18); BUN/Creat Ratio 22.8 RATIO (10-20); Calcium,Total 9.1 mg/dL (8.5-10.1); Chloride 110 mmol/L (98-107); Cholesterol 165 mg/dL (200); Creatinine, Serum 0.83 mg/dL (0.55-1.02); EST Glomerular Filtration Rate 73 mL/min (>60); Est Glom Filt Rate - Afr Amer 89 mL/min (>60); Globulin 3.2 g/dL (2.2-4.2); Glucose 97 mg/dL (74-106); High Density Lipoprotein 69 mg/dL; Magnesium 2.1 mg/dL (1.6-2.6); Potassium 4.1 mmol/L (3.5-5.1); Protein, Total 6.9 g/dL (6.4-8.2); Sodium Level 141 mmol/L (136-145); Thyroid Stim Hormone (TSH) 1.29 uIU/mL (0.358-3.74); Triglycerides 149 mg/dL; Very Low Density Lipoprotein 30 mg/dL (5-40)
== END | disposition home or self-care (01) ==
LOC: MTLAB 08:19
PROVIDERS: PCP Family Medicine; Referring Provider Family Medicine; Visit Provider Family Medicine
DX: I10 Essential (primary) hypertension (principal); E78.5 Hyperlipidemia, unspecified; E55.9 Vitamin D deficiency, unspecified
CPT/HCPCS: 36415; 80053; 80061; 82306; 82330; 83735; 83970; 84443

== ENCOUNTER → 2022-08-24 | Outpatient (CLI) | payer OTHER, SELFPAY ==
--- NOTE | 2022-08-24 11:49 | RAD_ITS ---
STUDY: X-RAY - RIGHT SHOULDER REASON FOR EXAM: Female, 61 years old. PAIN TECHNIQUE: 4 view(s) of the shoulder. COMPARISON: None. FINDINGS: Normal glenohumeral articulation. Normal acromioclavicular joint. Normal acromion. Normal humeral head and visualized proximal humerus. The soft tissue structures are unremarkable. Normal visualized pulmonary apex. RAD/Shoulder min 2 Views IMPRESSION: Normal x-ray examination of the shoulder. Electronically Signed: Singh Wyman MD at 12:05 EDT ,
== END | disposition home or self-care (01) ==
LOC: MTRAD 11:48
PROVIDERS: PCP Family Medicine; Referring Provider Family Medicine; Visit Provider Family Medicine
DX: M75.51 Bursitis of right shoulder (principal)
CPT/HCPCS: 73030

== ENCOUNTER 2022-10-17 07:23 | Outpatient (CLI) | payer OTHER, SELFPAY ==
--- NOTE | 2022-10-17 07:24 | BI_ITS ---
MAMMOGRAPHY - BILATERAL SCREENING REASON FOR EXAM: Female, 61 years old. Routine annual screening examination. PERTINENT HISTORY: Non-contributory. TECHNIQUE: Digital bilateral breast nawaf (3D mammographic acquisition) in the CC and MLO projections. 2-D mediolateral oblique (MLO) and craniocaudad (CC) views of both breasts were obtained. CAD: Full Field Digital Mammography with Computer Added Detection was performed. COMPARISON: Comparison is made with prior study dated 10/14/2021 and 10/11/2020. FINDINGS: Breast Composition: There are scattered areas of fibroglandular density. There are no dominant masses or suspicious calcifications. Stable small benign-appearing bilateral axillary lymph nodes. No other significant abnormalities are identified. There has been no significant change since the prior study. BI/SCRN MAMM (CAD)W/NAWAF BILAT IMPRESSION: Stable bilateral screening mammogram. Yearly follow-up mammogram recommended. (A) ASSESSMENT CATEGORY: BIRADS Category 2: Benign. A letter regarding these results will be sent to the patient by the facility within 30 days. Approximately 10% of breast cancers are not detected by mammography. A normal mammogram should not delay biopsy of a clinically suspicious abnormality. [id number] Electronically Signed: Lawrence Mccoy MD at 11:02 EST ,
== END 2022-10-17 23:59 | disposition home or self-care (01) ==
LOC: OPBI 07:23
PROVIDERS: PCP Family Medicine; Referring Provider Student in an Organized Health Care Education/Training Program; Visit Provider Student in an Organized Health Care Education/Training Program
DX: Z12.31 Encounter for screening mammogram for malignant neoplasm of breast (principal); Z01.419 Encounter for gynecological examination (general) (routine) without abnormal findings
CPT/HCPCS: 77063; 77067

== ENCOUNTER 2022-11-01 17:10 | Emergency (ER) | payer OTHER, SELFPAY ==
[2022-11-01] VITALS (7 sets, daily range): BP systolic 141–190; BP diastolic 67–168; PULSE 78–89; RESP 16–181; TEMP 36.4; O2SAT 95–100; BMI 27.9
--- NOTE | 2022-11-01 17:10 | RAD_ITS ---
INDICATION: fall EXAMINATION/TECHNIQUE: X-RAY - LEFT XR Shoulder Min 2 Views 2 VIEWS COMPARISON: None. FINDINGS: SOFT TISSUES: No soft tissue swelling or gas. No radiopaque foreign body. BONES/JOINTS: There is anterior subcoracoid dislocation of the humeral head. There is no definitive evidence for associated fracture... No sclerotic or destructive changes observed. RAD/Shoulder min 2 Views IMPRESSION: Anterior subcoracoid dislocation of the shoulder without definitive evidence for acute fracture Electronically Signed: Nicholas Perry MD at 17:25 EST ,
--- NOTE | 2022-11-01 18:26 | ED.VIS.FALL ---
HPI HPI - Fall History of Present Illness Chief Complaint: Fall Informant: patient Occured/Mechanism Occurred: Today Mechanism/Context: Yes trip Pain/Injury Pain Location: upper extremity (Left shoulder) and lower extremity (Right knee) Quality of Pain: Sharp and Aching Worsened by: Movement Relieved by: Rest Associated Symptoms Associated Symptoms: Positive for Parasthesias; Negative for Weakness, Inability to ambulate or Loss of consciousness Narrative Narrative: Patient presents with left shoulder pain that began after a fall. Patient states she tripped and fell today. Patient states she landed on her left shoulder. Patient states she also hit her right knee. Patient states her pain is worse with any movement of her left shoulder. Patient denies any head injury or loss of consciousness. Patient admits to some numbness and tingling in her left hand initially after the fall but this has resolved. Patient denies taking any blood thinners. [facility] Medical History (Updated 11/01/22 @ 19:[address] Aldo Roman, DO) Asthma Home Medications albuterol sulfate 90 mcg/actuation aerosol inhaler (Ventolin HFA) 1 - 2 puff inhalation Q4H PRN PRN Sob &/Or Wheezing 08/24/17 [History Last Taken Unknown] aspirin 81 mg tablet,delayed release 81 mg PO DAILY@0800 08/24/17 [History Last Taken 08/18/17] calcium carbonate 600 mg calcium (1,500 mg) tablet 600 mg PO DAILY 08/24/17 [History Last Taken Unknown] cholecalciferol (vitamin D3) 125 mcg (5,000 unit) capsule 5,000 unit PO DAILY 08/24/17 [History Last Taken Unknown] fluticasone propionate 110 mcg/actuation HFA aerosol inhaler (Flovent HFA) 1 puff IH PRN PRN Sob &/Or Wheezing 08/24/17 [History Last Taken Unknown] lorcaserin 20 mg tablet,extended release 24 hr (Belviq XR) 20 mg PO DAILY 08/24/17 [History Last Taken Unknown] clvcbkdv-okh-dliyl acid 0.4 mg-lycopene 300 mcg-lutein 250 mcg tablet (Centrum Silver) 1 ea PO DAILY 08/24/17 [History Last Taken Unknown] omega-3 fatty acids-fish oil 340 mg-1,000 mg capsule (Fish Oil) 1 ea PO DAILY 10/20/17 [History Last Taken Unknown] hydrocodone-acetaminophen 5-325mg 5mg-325mg 1 - 2 tab PO Q6H PRN PRN Pain ##20 08/29/17 [Rx Last Taken Unknown] hydrocodone-acetaminophen 5-325mg 5mg-325mg 1 tab PO Q6H PRN PRN Pain 3 days #10 TABLETS 11/01/22 [Rx Last Taken Unknown] Allergy/AdvReac Type Severity Reaction Status Date / Time ether [Ether] Allergy Other Verified 08/24/17 13:14 Surgical History History of hysterectomy S/P trigger finger release Social History Smoking Status: Never smoker ROS ROS ED Constitutional Constitutional ED: Denies chills or fever(s) Eyes Eyes: Denies blurry vision or change in vision ENT ENT ED: Denies rhinorrhea or sore throat Cardiovascular Cardiovascular: Denies chest pain or palpitations Respiratory/Chest Respiratory/Chest: Denies cough or dyspnea Gastrointestinal Gastrointestinal: Reports diarrhea; Denies nausea or vomiting Genitourinary Genitourinary ED: Denies dysuria or hematuria Musculoskeletal Musculoskeletal: Denies back pain or neck pain Integumentary Denies abscess or rash Neurologic Neurologic: Denies headache(s) or weakness Allergic/Immunologic Allergic/Immunologic ED: Denies mouth swelling or urticaria EXAM Physical Exam Const Vital Signs: 11/01/22 17:11 11/01/22 18:39 11/01/22 19:22 Temperature 97.6 F L Temperature Source Temporal Pulse Rate 89 82 Pulse Rate [1 (Initial Baseline)] Pulse Rate [2] Respiratory Rate 16 18 Respiratory Rate [1 (Initial Baseline)] Respiratory Rate [2] Respiratory Effort Normal Non-Labored Respiratory Depth Normal Respiratory Pattern Normal Blood Pressure 141/84 H 164/84 H Blood Pressure [1 (Initial Baseline)] Blood Pressure [2] Blood Pressure Mean 103 Pulse Ox 99 100 Oxygen Delivery Method Room Air Room Air Nasal Cannula Oxygen Delivery Method [1 (Initial Baseline)] Oxygen Delivery Method [2] Oxygen Flow Rate (L/min) 2 Fraction of Inspired Oxygen (FIO2) [1 (Initial Baseline)] Fraction of Inspired Oxygen (FIO2) [2] 11/01/22 19:26 Temperature Temperature Source Pulse Rate Pulse Rate [1 (Initial Baseline)] 81 Pulse Rate [2] 78 Respiratory Rate Respiratory Rate [1 (Initial Baseline)] 181 H Respiratory Rate [2] 18 Respiratory Effort Respiratory Depth Respiratory Pattern Blood Pressure Blood Pressure [1 (Initial Baseline)] 190/168 H Blood Pressure [2] 147/80 H Blood Pressure Mean Pulse Ox Oxygen Delivery Method Oxygen Delivery Method [1 (Initial Baseline)] Nasal Cannula Oxygen Delivery Method [2] Nasal Cannula Oxygen Flow Rate (L/min) Fraction of Inspired Oxygen (FIO2) [1 (Initial Baseline)] 2 Fraction of Inspired Oxygen (FIO2) [2] 2 Positive well nourished and well developed General Appearance ED: well developed and NAD HEENT Reports normocephalic atraumatic Eyes PERRL and EOMs intact bilaterally Neck full ROM and supple Resp normal respiratory effort and clear to auscultation bilaterally Cardio regular rate and regular rhythm GI non-tender Palpation: soft Extremity Extremity Narrative: There is tenderness and deformity of the left shoulder. Range of motion was limited in all motions of the left shoulder secondary to pain. Radial pulses are equal bilaterally. Sensation was intact to light touch in the radial, median, ulnar, and axillary areas. Strength is 5/5 in the radial, median, and ulnar areas. Neuro oriented x3, CN's II-XII intact bilaterally, moves all extremities, no focal motor deficits and no sensory deficits noted Jj Coma Scale: document GCS findings Spontaneous Obeys Commands Oriented 15 Sensorium / Orientation: alert Motor Exam: strength 5/5 throughout MDM MDM MDM Narrative Medical decision making narrative: X-rays of the left shoulder were obtained. There are 2 views. On my interpretation, there is an anterior subcoracoid dislocation of the glenohumeral joint. There is no acute fracture. Radiologist also interpreted the x-rays and agrees. Patient given a dose of morphine here. Patient was advised of the need for conscious sedation. Patient was explained the procedure. Patient was given the opportunity ask questions. Patient had no further questions. Patient was placed on continuous cardiac and pulse oximeter monitors. Patient was given a total of 70 mg of propofol. The shoulder was reduced using traction, countertraction technique. Patient tolerated procedure well. Patient had no episodes of hypoxia during the procedure. Patient was neurovascular intact after the procedure. Patient was placed in a sling and swath. Repeat x-ray was obtained. Patient was given a prescription for a short course of [place]. Patient was given a referral for orthopedics. Patient was instructed to use ice to the area. Patient was instructed to return if worse in any way. Patient understood and was agreeable with the plan. All questions were answered. Radiography Diagnostic Testing: Clinical Impression(s) from Imaging Studies Shoulder X-Ray 11/01/22 17:10 IMPRESSION: Anterior subcoracoid dislocation of the shoulder without definitive evidence for acute fracture Electronically Signed: Nicholas Perry MD at 17:25 EST , Discharge Plan Triage Chief Complaint: Fall ED Provider: Aldo Roman Dx/Rx/DC Orders Clinical Impression: Anterior dislocation of left shoulder, Fall Instructions: ED Dislocation: Shoulder (Reduced) Prescriptions: New hydrocodone-acetaminophen [hydrocodone-acetaminophen] 5-325 mg tablet 1 tab PO Q6H PRN PRN (Reason: Pain) 3 Days Qty: 10 0RF No Action aspirin 81 MG tablet 81 mg PO DAILY@0800 calcium carbonate 600 MG tablet 600 mg PO DAILY albuterol sulfate [Ventolin HFA] 1 INHALER inhaler 1 - 2 puff inhalation Q4H PRN PRN (Reason: Sob &/Or Wheezing) cholecalciferol (vitamin D3) 5,000 UNIT capsule 5,000 unit PO DAILY fluticasone propionate [Flovent HFA] 12 GM HFA aerosol inhaler 1 puff IH PRN PRN (Reason: Sob &/Or Wheezing) torzacur-mwr-GY-lycopen-lutein [Centrum Silver] 1 EACH tablet 1 ea PO DAILY omega-3 fatty acids-fish oil [Fish Oil] 1 EACH capsule 1 ea PO DAILY lorcaserin [Belviq XR] 20 MG tablet extended release 24 hr 20 mg PO DAILY hydrocodone-acetaminophen 1 TABLET tablet 1 - 2 tab PO Q6H PRN PRN (Reason: Pain) Qty: 20 0RF Primary Care Provider: Jim Lee Referrals: Jim Lee MD [Primary Care Provider] - 5-7 Days Louie Caldera DO [Med Staff - Active Staff] - 5-7 Days Disposition Disposition: Home, Self Care
[2022-11-01] MEDS: Morphine 4 MG/ML Syringe IV (18:35)
[2022-11-01] MEDS: Propofol 200 MG/20 ML Vial IV BOLUS (19:24)
--- NOTE | 2022-11-01 19:30 | RAD_ITS ---
INDICATION: Injury/Pain EXAMINATION/TECHNIQUE: X-RAY - LEFT XR Shoulder Min 2 Views 2 VIEWS COMPARISON: November 01, 2022 FINDINGS: Previously noted dislocated left shoulder has been reduced with evangelical of joint to normal anatomic configuration.. No acute fracture identified RAD/Shoulder min 2 Views IMPRESSION: Status post reduction of dislocated left shoulder Electronically Signed: Nicholas Perry MD at 19:59 EST ,
== END 2022-11-01 20:35 | disposition home or self-care (01) ==
PROVIDERS: Emergency Provider Emergency Medicine; PCP Family Medicine; Visit Provider Emergency Medicine
DX: S43.015A Anterior dislocation of left humerus, initial encounter (principal); W19.XXXA Unspecified fall, initial encounter
CPT/HCPCS: 73030; 96374; 96375; 99285; J7030; A4216

== ENCOUNTER → 2023-02-07 | Outpatient (CLI) | payer OTHER, SELFPAY ==
[2023-02-07 07:41] LABS: Bacteria 0 SEEN /hpf (None Seen); Mucous, Urine 0 SEEN /hpf (<or=2+); Squamous Epithelial Cells - UA 0 SEEN /hpf (5-10); White Blood Cells 0 SEEN /hpf (0-5)
[2023-02-07 10:42] LABS: Color, Urine Yellow (Yellow); Glucose, Dipstick Normal (Normal); Ketone-Dipstick Negative (Negative); Leukocyte Esterase-Dipstick 25 /ul (Negative); Nitrite-Dipstick Negative (Negative); Occult Blood-Urine 150 /ul (Negative); Protein-Dipstick Negative (Negative); Specific Gravity, Urine 1.015 (1.002-1.030); Urine Bilirubin Dipstick Negative (Negative); Urine Clarity Clear (Clear); Urine Urobilinogen Normal (Normal)
[2023-02-07 10:45] LABS: PTHIN 38.9 pg/mL (18.4-80.1); Vitamin D,25 Hydroxy 65.8 ng/mL
[2023-02-07 10:48] LABS: ALB/GLOB Ratio 1.1 RATIO (0.9-2.4); AST(SGOT) 25 U/L (15-37); Alanine Aminotransfer ALT/SGPT 45 U/L (13-56); Albumin, Serum 3.8 g/dL (3.2-5.0); Alkaline Phosphatase 80 U/L (45-117); Anion Gap 7 (5-15); BUN 16 mg/dL (7-18); BUN/Creat Ratio 17.6 RATIO (10-20); Calcium,Total 9.3 mg/dL (8.5-10.1); Chloride 110 mmol/L (98-107); Cholesterol 152 mg/dL (200); Creatinine, Serum 0.91 mg/dL (0.55-1.02); EST Glomerular Filtration Rate 66 mL/min (>60); Est Glom Filt Rate - Afr Amer 80 mL/min (>60); Globulin 3.5 g/dL (2.2-4.2); Glucose 98 mg/dL (74-106); High Density Lipoprotein 72 mg/dL; Magnesium 2.2 mg/dL (1.6-2.6); Potassium 4.1 mmol/L (3.5-5.1); Protein, Total 7.3 g/dL (6.4-8.2); Sodium Level 139 mmol/L (136-145); Triglycerides 104 mg/dL; Very Low Density Lipoprotein 21 mg/dL (5-40)
[2023-02-07 11:02] LABS: Red Blood Cells-Urine 0-5 SEEN /hpf (0-5)
== END | disposition home or self-care (01) ==
PROVIDERS: PCP Family Medicine; Referring Provider Family Medicine; Visit Provider Family Medicine
DX: R31.29 Other microscopic hematuria (principal); M81.0 Age-related osteoporosis without current pathological fracture; E78.5 Hyperlipidemia, unspecified
CPT/HCPCS: 36415; 80053; 80061; 81001; 82306; 82330; 83735; 83970; 84443; 87086; 87088

== ENCOUNTER → 2023-06-15 | Outpatient (CLI) | payer OTHER, SELFPAY ==
--- NOTE | 2023-06-15 06:39 | MRI_ITS ---
STUDY: MRI LEFT ANKLE WITHOUT CONTRAST REASON FOR EXAM: Female, 62 years old. Pain. Evaluate for peroneal tendon tear. TECHNIQUE: Standardized fat and water weighted pulse sequences were obtained in all 3 orthogonal planes. COMPARISON: None. FINDINGS: Normal subcutis adipose space. Posterior tibialis tendinosis with thickening and increased signal intensity with tenosynovitis (coronal series 6 images 15-20, axial series 10 images 10-16). Normal flexor digitorum longus tendon. Normal flexor hallucis longus tendon. Normal peroneus longus and brevis tendons. Normal tibialis anterior tendon. Normal extensor hallucis longus tendon. Normal extensor digitorum longus tendons. Normal Achilles tendon and teno-osseous insertion. Minimal pre-Achilles bursitis (sagittal series 9 image 9). Normal plantar fascia. Normal plantar calcaneal tubercles. Normal intrinsic muscles of the rearfoot. Normal distal tibiofibular syndesmotic ligamentous complex. Normal lateral ligamentous complex. Normal subtalar ligaments and sinus tarsi. Normal deltoid ligamentous complexes. Normal plantar calcaneonavicular (spring) ligament. Normal tibiotalar articulation. Normal talar dome. Normal subtalar articulations. Normal talonavicular articulation. Normal calcaneocuboid articulation. Normal navicular-cuneiform articulations. MRI/Lower Ext Joint Only (Routine) IMPRESSION: Posterior tibialis tendinosis with tenosynovitis. Minimal pre-Achilles bursitis. No other abnormality. Electronically Signed: Jorge A Hilton MD at 9:36 EDT ,
== END | disposition home or self-care (01) ==
LOC: MRI 06:33
PROVIDERS: PCP Family Medicine; Referring Provider Podiatrist; Visit Provider Podiatrist
DX: S86.111A Strain of other muscle(s) and tendon(s) of posterior muscle group at lower leg level, right leg, initial encounter (principal); M63.89 Disorders of muscle in diseases classified elsewhere, multiple sites
CPT/HCPCS: 73721

== ENCOUNTER → 2023-08-16 | Outpatient (CLI) | payer OTHER, SELFPAY ==
[2023-08-16 10:36] LABS: Ionized Calcium 5.25 mg/dL (4.36-5.20)
[2023-08-16 10:46] LABS: PTHIN 47.9 pg/mL (18.4-80.1)
[2023-08-16 10:57] LABS: AST(SGOT) 16 U/L (15-37); Alanine Aminotransfer ALT/SGPT 35 U/L (13-56); Albumin, Serum 3.6 g/dL (3.2-5.0); Alkaline Phosphatase 74 U/L (45-117); Anion Gap 3 (5-15); BUN 26 mg/dL (7-18); BUN/Creat Ratio 31.4 RATIO (10-20); Calcium,Total 9.2 mg/dL (8.5-10.1); Chloride 112 mmol/L (98-107); Cholesterol 145 mg/dL (200); Creatinine, Serum 0.83 mg/dL (0.55-1.02); EST Glomerular Filtration Rate 74 mL/min (>60); Est Glom Filt Rate - Afr Amer 89 mL/min (>60); Globulin 3.6 g/dL (2.2-4.2); Glucose 106 mg/dL (74-106); High Density Lipoprotein 72 mg/dL; Magnesium 2.5 mg/dL (1.6-2.6); Potassium 4.1 mmol/L (3.5-5.1); Protein, Total 7.2 g/dL (6.4-8.2); Sodium Level 141 mmol/L (136-145); Triglycerides 80 mg/dL; Very Low Density Lipoprotein 16 mg/dL (5-40)
== END | disposition home or self-care (01) ==
LOC: MTLAB 07:58
PROVIDERS: PCP Family Medicine; Referring Provider Family Medicine; Visit Provider Family Medicine
DX: M81.0 Age-related osteoporosis without current pathological fracture (principal); E78.00 Pure hypercholesterolemia, unspecified
CPT/HCPCS: 36415; 80053; 80061; 82330; 83735; 83970

== ENCOUNTER → 2023-09-21 | Outpatient (CLI) | payer OTHER, SELFPAY ==
--- NOTE | 2023-09-21 14:43 | CT_ITS ---
STUDY: CT CHEST WITHOUT CONTRAST REASON FOR EXAM: Female, 62 years old. HYPERLIPIDEMIA OVER READ ONLY RADIATION DOSAGE (If Supplied By Facility): CTDIvol = ( 12.19 ) mGy, DLP = ( 195.04 ) mGycm TECHNIQUE: Transaxial imaging was performed without the administration of intravenous contrast material. Individualized dose optimization techniques were used for this CT. COMPARISON: No relevant priors. FINDINGS: CHEST 3 mm calcified granuloma seen in the anterior aspect of the left lower lobe. There is no demonstrated pleural abnormality. There are calcifications of the coronary arteries. There are small small lymph nodes within the mediastinum, which are normal in size and morphology most compatible with reactive lymph hyperplasia. Normal hilar regions. Normal unenhanced pulmonary arteries. Normal aorta arch and descending thoracic aorta. Normal osseous structures. Small hiatal hernia. CT/Limited Chest CT Cardiac Only IMPRESSION: Coronary artery calcification. Small granuloma in the anterior aspect of the lower lobe. Electronically Signed: Lawrence Mccoy MD at 8:22 EST ,
--- NOTE | 2023-09-24 15:58 | CA.SCORE ---
Calcium Scoring Date of Study:: 09/21/23 Indications Indications: Family history hyperlipidemia Coronary Calcium Scoring: High-resolution Computed Tomographic imaging of the chest was performed on [09/21/2023], with particular attention paid to the coronary arteries. Images from the examination were analyzed for the presence and extent of coronary artery calcification , using coronary calcium quantification software. The patient tolerated the procedure well and there were no complications. The results of the coronary calcification analysis are provided below. Findings Coronary Artery Left Main (LM): 75 Left Anterior Descending (LAD): 127 Left Circumflex (LCX): 2.5 Right Coronary Artery (RCA): 285 Total Agatston Score: 489.5 Percentile Ranking: Greater than 90th percentile Calcium Scoring Interpretation: Different methods to categorize the overall amount of coronary plaque. Overall amount CAC SIS Visual of coronary plaque P1 Mild -100 <2 1-2 vessels with mild amount of plaque P2 Moderate 101-300 3-4 1-2 vessels with moderate amount, 3 vessels with mild amount of plaque P3 Severe 301-999 5-7 3 vessels with moderate amount, 1 vessel with severe amount of plaque P4 Extensive >1000 >8 2-3 vessels with severe amount of plaque Calcium Score: Severe: 3 vessels w/moderate amount, 1 vessel w/severe amt of plaque Conclusion: Moderate amount of atherosclerotic plaquing noted or 1 vessel with severe amount of plaque noted.
== END | disposition home or self-care (01) ==
LOC: CT 14:39
PROVIDERS: PCP Family Medicine; Referring Provider Family Medicine; Visit Provider Family Medicine
DX: E78.5 Hyperlipidemia, unspecified (principal); I25.10 Atherosclerotic heart disease of native coronary artery without angina pectoris
CPT/HCPCS: 75571; 76380

== ENCOUNTER → 2023-10-15 | Outpatient (CLI) | payer OTHER, SELFPAY ==
--- NOTE | 2023-10-15 09:10 | EKG12_ITS ---
Test Reason : HTN Blood Pressure : / mmHG Vent. Rate : 061 BPM Atrial Rate : 061 BPM P-R Int : 174 ms QRS Dur : 076 ms QT Int : 428 ms P-R-T Axes : 051 -24 021 degrees QTc Int : 430 ms Normal sinus rhythm Normal ECG Confirmed by LAURA BOONE, GRACIE ([id number]), newspaper editor managing GREGG CALLE ([id number]) on 10/16/2023 6:14:02 AM Referred By: Jim Lee Confirmed By:GAIL SANCHEZ MD
== END | disposition home or self-care (01) ==
LOC: PSN 09:05
PROVIDERS: PCP Family Medicine; Referring Provider Family Medicine; Visit Provider Family Medicine
DX: I25.10 Atherosclerotic heart disease of native coronary artery without angina pectoris (principal); I10 Essential (primary) hypertension
CPT/HCPCS: 93005

== ENCOUNTER → 2023-10-18 | Outpatient (CLI) | payer OTHER, SELFPAY ==
--- NOTE | 2023-10-18 11:48 | BI_ITS ---
MAMMOGRAPHY - BILATERAL SCREENING REASON FOR EXAM: Female, 62 years old. Routine annual screening examination. PERTINENT HISTORY: Non-contributory. TECHNIQUE: Digital bilateral breast nawaf (3D mammographic acquisition) in the CC and MLO projections. 2-D mediolateral oblique (MLO) and craniocaudad (CC) views of both breasts were obtained. CAD: Full Field Digital Mammography with Computer Added Detection was performed. COMPARISON: Comparison is made with prior study dated October 17, 2022 and October 14, 2021. FINDINGS: Breast Composition: There are scattered areas of fibroglandular density. There are no dominant masses or suspicious calcifications. Stable small benign-appearing bilateral axillary lymph nodes. No other significant abnormalities are identified. There has been no significant change since the prior study. BI/SCRN MAMM (CAD)W/NAWAF BILAT IMPRESSION: Stable bilateral screening mammogram. Yearly follow-up mammogram recommended. (A) ASSESSMENT CATEGORY: BIRADS Category 2: Benign. A letter regarding these results will be sent to the patient by the facility within 30 days. Approximately 10% of breast cancers are not detected by mammography. A normal mammogram should not delay biopsy of a clinically suspicious abnormality. [id number] Electronically Signed: Lawrence Mccoy MD at 13:16 EST ,
== END | disposition home or self-care (01) ==
LOC: OPBI 11:46
PROVIDERS: PCP Family Medicine; Referring Provider Nurse Practitioner Family; Visit Provider Nurse Practitioner Family
DX: Z12.31 Encounter for screening mammogram for malignant neoplasm of breast (principal)
CPT/HCPCS: 77063; 77067

== ENCOUNTER → 2023-11-09 | Outpatient (CLI) | payer OTHER, SELFPAY ==
--- OUTSIDE RECORDS SUMMARY | 2023-11-09 06:19 | XMS RPT_ITS | CCD ---
Author Name Unknown Address [address] [place] [address] Organization [facility] Care Team Providers Care Yoghurt Maker Name Role Phone Jo Ann Novak MD Primary Care Provider JOSIAH HALEY DO Attending Unavailable Jo Ann Novak MD Primary Care Provider Jo Ann Novak MD Primary Care Provider JO ANN NOVAK Primary Care Unavailabl e LEX HAQ Attending Unavailable LEX HAQ Referring Unavailable JO ANN NOVAK Primary Care Unavailabl e SEVERINO LEX E Attending Unavailable SEVERINO LEX E Referring Unavailable YOBANY HAQA Sathya Attending Unavailable YOBANY HAQA Sathya Referring Unavailable JO ANN NOVAK Primary Care Unavailabl e GRACIA BHARDWAJ Attending Unavailable JO ANN NOVAK Primary Care Unavailabl e Allergies Allergy Classification Reported Allergen(s) Allergy Type Date of Onset Reaction(s) Facility (5 sources) Ether; Translations: [ETHER] Propensity to adverse reactions to drug 01-24-2007 Anaphylaxis [facility] Medications Current Medications Medication Drug Class(es) Dates Sig (Normalized) Sig (Original) [id number] actuat albuterol 0.09 mg/actuat metered dose inhaler (2 sources) beta2-Adrenergi c Agonist take 1 puff(s) by inhalation every six hours as needed for wheezing albuterol 108 (90 Base) MCG/ACT Aero Soln inhaler Inhale 1 puff every 6 hours as needed for Wheezing. 0 Active Budesonide-Formoterol Fumarate (SYMBICORT IN) (2 sources) Budesonide-Formo tero l Fumarate (SYMBICORT IN) Inhale. 0 Active Calcium Carbonate (2 sources) Calcium Carbonat e (CALTRATE 600 PO) Indications: Osteopenia , Hypovitaminosis D take by mouth.. 0 Active cholecalciferol 0.05 mg oral tablet (2 sources) Vitamin D take 5 tablets by mouth every other day Cholecalciferol (VITAMIN D3) 2000 UNITS PO TABS Indications: Osteopenia Take 10,000 Units by mouth every other day. 0 Active Multiple Vitamins-Minerals (CENTRUM WOMEN PO) (2 sources) Multiple Vitamins-Minerals (CENTRUM WOMEN PO) Indications: Osteopenia, unspecified location , Menopause , Hypovitaminosis D Take by mouth. 0 Active [place]-3 Fatty Acids (FISH OIL PO) (2 sources) [place]-3 Fatty Ac ids (FISH OIL PO) risedronate sodium 35 mg oral tablet (2 sources) Start: 01-24-2007 End: 09-04-2023 take 1 tablet by mouth every week in the morning ACTONEL 35 MG TAB Take once per week in the morning with a full glass of water, on an empty stomach, and do not take anything else by mouth or lie down for the next 30 minutes. 0 01/24/2007 09/04/2023 Discontinued Completed/Discontinued Medications Medication Drug Class(es) Dates Sig (Normalized) Sig (Original) aspirin 81 mg oral tablet (4 sources) Platelet Aggregation Inhibitor, Nonsteroidal Anti-inflammatory Drug Start: 05-29-2007 take 1 tablet by mouth once daily Aspirin 81 mg ORAL Tab Take one(1) tablet daily. HELD 05/10/07 0 05/29/2007 Active Problems Active Problems Problem Classification Problem Date Documented Da te Episodic/Chronic Essential hypertension (2 sources) Essential hypertension; Translations: [Essential (primary) hypertension] Onset: 05-29-2007 05-29-2007 Chronic Nutritional deficiencies (3 sources) Vitamin D deficiency; Translations: [Vitamin D deficiency, unspecified] Onset: 07-04-2023 Chronic Other bone disease and musculoskeletal deformities (4 sources) Osteopenia; Translations: [Other specified disorders of bone density and structure, unspecified site] Onset: 04-28-2013 Episodic Other bone disease and musculoskeletal deformities (2 sources) Other specified disorders of bone density and structure, unspecified site; Translations: [Other specified disorders of bone density and structure, unspecified site] Onset: 04-28-2013 Episodic Other screening for suspected conditions (not mental disorders or infectious disease) (3 sources) Abnormal results of thyroid function studies; Translations: [Patient encounter status] Onset: 07-04-2023 Episodic Residual codes; unclassified (2 sources) Menopause present; Translations: [Asymptomatic menopausal state] Episodic Residual codes; unclassified (2 sources) Asymptomatic menopausal state; Translations: [Asymptomatic menopausal state] Onset: 07-04-2023 Episodic Past or Other Problems Problem Classification Problem Date Documented Da te Episodic/Chronic Other diseases of kidney and ureters (2 sources) Acquired renal cystic disease; Translations: [Cyst of kidney, acquired] Onset: 05-29-2007 05-29-2007 Episodic Results Test Name Value Interpretation Reference Range Facil ity Vital Signs Date Time Vital Sign Value Performing Clinician Ashley lopez 09-04-2023 07:26-0400 Body height 153.7 cm Gracia Jayne LABORATORY SUPERVISOR.CHUCK BONER Work Phone: [facility] 09-04-2023 07:26-0400 Body weight 67.5 kg Gracia Jayne LABORATORY SUPERVISOR.CHUCK BONER Work Phone: [facility] 09-04-2023 07:26-0400 Diastolic blood pressure 62 mm[Hg] Gracia Jayne LABORATORY SUPERVISOR.CHUCK BONER Work Phone: [facility] 09-04-2023 07:26-0400 Systolic blood pressure 100 mm[Hg] Gracia Salisbury LABORATORY SUPERVISOR.CHUCK BONER Work Phone: [facility] 06-08-2022 09:52-0400 Body height 155.1 cm Lex Haq MD Work Phone: [facility] 06-08-2022 09:52-0400 Body mass index (BMI) [Ratio] 28.47 kg/m2 Lex Haq MD Work Phone: [facility] 06-08-2022 09:52-0400 Body weight 68.49 kg Lex Haq MD Work Phone: [facility] 06-08-2022 09:52-0400 Diastolic blood pressure 78 mm[Hg] Lex Haq MD Work Phone: [facility] 06-08-2022 09:52-0400 Heart rate 54 /min Lex Haq MD Work Phone: [facility] 06-08-2022 09:52-0400 Respiratory rate 16 /min Lex Haq MD Work Phone: [facility] 06-08-2022 09:52-0400 SaO2% (BldA) [Mass fraction] 98 % Lex Haq MD Work Phone: [facility] 06-08-2022 09:52-0400 Systolic blood pressure 128 mm[Hg] Lex Haq MD Work Phone: [facility] Encounters Encounter Date Encounter Type Care Provider Facility Start: 09-04-2023 End: 09-04-2023 ambulatory [facility] Facility:[facility] Start: 09-04-2023 End: 09-04-2023 Patient encounter procedure Gracia Salisbury LABORATORY SUPERVISOR.CHUCK BONER Work Phone: OB/Gynecology Procedures Date Procedure Procedure Detail Performing Clinician Start: 07-04-2023 Dxa bone density brenda dy 1/> sites axial skel Lex Haq MD Work Phone: Plan of Treatment Date Care Activity Detail Author Start: 07-02-2029 Tetanus vaccination TETANUS [facility] Start: 07-02-2029 Urine microalbumin profile DTaP,Tdap,Td Vaccine (2 - Td or Tdap) [facility] Start: 09-04-2024 BP Controlled (<130/80) BP Controlled (<130/80) [facility] Start: 07-09-2024 End: 07-09-2024 Patient encounter procedure 07/09/2024 1:20 PM EDT Office Visit [facility] [address] [place] [address] Lex Haq MD [address] [place] [address] [facility] Start: 10-17-2023 Mammography Mammogram Screening [facility] Start: 07-06-2023 Influenza vaccination [facility] Start: 07-04-2023 End: 07-04-2023 Patient encounter procedure 07/04/2023 Office Visit Endocrinology, Diabetes & Metabolism Lex Haq MD [address] [facility] [address] [place] [address] [facility] Start: 11-05-2022 DEPRESSION ASSESSMENT DEPRESSION ASSESSMENT [facility] Start: 07-06-2022 Influenza vaccination INFLUENZA VACCINE (#1) [facility] Start: 06-08-2022 End: 06-08-2023 Bone density scan BONE DENSITY AXIAL (HIP, PELVIS, SPINE) Imaging Routine Osteopenia, unspecified location Menopause Expected: 06/08/2022, Expires: 06/08/2023 [facility] Immunizations Immunization Date Immunization Notes Care Provider Fa cility 08-04-2022 influenza virus vaccine, unspecified formulation Lex Haq MD Work Phone: [facility] 07-18-2021 zoster vaccine, unspecified formulation Lex Haq MD Work Phone: [facility] Payers Date Payer Category Payer Unknown [id number] 2022 Unknown [id number] 2013 Unknown [id number] 2013 Unknown [id number] 1960 Unknown [id number] 1958 Unknown [id number] 1958 Unknown [id number] 1960 Unknown [id number] Social History Date Type Detail Facility Start: 09-04-2023 Tobacco smoking status NHIS Never smoked tobacco [facility] Start: 10-30-2018 End: 07-04-2023 Alcohol intake Current non-drinker of alcohol (finding) [facility] Start: 1960 Sex Assigned At Not on file [facility] Tobacco smoking status No Smoking Status Entered [facility] Sex Assigned At Female [facility] Start: 01-24-2007 Alcohol intake Not Asked [facility] Start: 07-04-2023 End: 09-04-2023 Gender identity Not on file [facility] Start: 07-04-2023 End: 09-04-2023 History of Social function [facility] Gender identity Identifies as fe male gender (finding) [facility] Start: 09-04-2023 Tobacco use and exposure Smokeless tobacco non-user [facility] Work Phone: Start: 09-04-2023 Alcohol intake Current drinke r of alcohol (finding) [facility] National Score (1-100), lower number is lower risk 75 [facility] Start: 09-04-2023 Alcohol Comment glass of wine with dinner 3-5x per week [facility] NEGATED: Highlighted rowStart: NINF History of tobacco use Passive smoker [facility] Work Phone: Clinical Notes 06-08-2022 to 09-04-2023 Gracia Bhardwaj APRN.CNP - 09/04/2023 7:24 AM EDTTelephone Encounter - Nellie Dickson LPN - 06/29/2023 3:35 PM Tor Haq MD - 06/08/2022 10:00 AM EDT Note Date & Type Note Facility 09-04-2023 Note HNO ID: [id number] Author: Gracia Bhardwaj APRN.CNP Service: ? 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 Postmenopausal: Yes -hysterectomy AGE 43 HRT use: No. 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 Operator History LMP: Hysterectomy Age at Menarche: Age at First : Age at Menopause: Batch Still Operator History Comments: Sexual Activity: Not Currently; No partner data on record Contraception: No contraception data on record PAST MEDICAL HISTORY Diagnosis Date Asthma Essential hypertension Flat feet, bilateral History of left shoulder fracture Hypercholesterolemia PAST SURGICAL HISTORY Procedure Laterality Date FOOT RIGHT OP SURGERY PAST SURGICAL HISTORY OF excison precancerous mole TONSILLECTOMY AND ADENOIDECTOMY tonsillectomy TOTAL ABDOM HYSTERECTOMY 04/21/2004 Helena HoweWcmyogn-yljflgyw-happaqdy WALANT PROCEDURE Left FAMILY HISTORY Problem Relation Age of Onset No Known Problems Sister No Known Problems Brother SOCIAL HISTORY Social History Tobacco Use Smoking status: Never Passive exposure: Never Smokeless tobacco: Never Vaping Use Vaping Use: Never used Substance Use Topics Alcohol use: Yes Comment: glass of wine with dinner 3-5x per week Drug use: Never REVIEW OF SYSTEMS Abdomen: No abdominal pain, nausea, vomiting, diarrhea, or constipation. No bloating, early satiety, indigestion, or increased flatulence. Bladder: No dysuria, gross hematuria, urinary frequency, urinary urgency, or incontinence Breast: No breast lumps, nipple d/c, overlying skin changes, redness or skin retraction Allergies and current medication updated:Yes EXAM: Ht 5' .5 (1.54m) Wt 148 lb 12.8 oz (67.5kg) BMI 28.57 kg/(m2). GENERAL: pleasant, female in no apparent distress HEENT: Normocephalic, atraumatic, mucus membranes moist, and no lesions NECK: Supple, full range of motion, no adenopathy, and thyroid normal DERMATOLOGY: Normal, without lesions, non-icteric, and non-hirsute BREAST: soft, non-tender, symmetric, no dominant mass, normal nipple-areolar complex, no lymphadenopathy, and no nipple discharge CHEST: Normal inspiratory effort ABDOMEN: soft, non-tender, and no masses PELVIC: external genitalia normal, normal Bartholin's glands, urethra, Enderlin's glands, no vulvar lesions, physiologic discharge present, normal appearing perineal body and perianal region, cervix surgically absent BIMANUAL: no adnexal masses, non-tender, and uterus surgically absent RECTOVAGINAL: deferred. NEURO: alert and oriented x3,exam grossly non-focal EXTREMITIES: normal ASSESSMENT/PLAN: 1) Health maintenance: Pap/HPV screening no longer needed Mammogram ordered for [facility] Nutrition, exercise and routine health maintenance exams reviewed. Calcium/Vitamin D supplementation information provided. 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 Postmenopausal: Yes -hysterectomy AGE 43 HRT use: No. 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 Operator History LMP: Hysterectomy Age at Menarche: Age at First : Age at Menopause: Batch Still Operator History Comments: Sexual Activity: Not Currently; No partner data on record Contraception: No contraception data on record PAST MEDICAL HISTORY Diagnosis Date Asthma Essential hypertension Flat feet, bilateral History of left shoulder fracture Hypercholesterolemia PAST SURGICAL HISTORY Procedure Laterality Date FOOT RIGHT OP SURGERY PAST SURGICAL HISTORY OF excison precancerous mole TONSILLECTOMY & ADENOIDECTOMY <AGE 10 1966 tonsillectomy TOTAL ABDOM HYSTERECTOMY 04/21/2004 [place] Vcnelzl-aobocjmf-tznumuqu WALANT PROCEDURE Left FAMILY HISTORY Problem Relation Age of Onset No Known Problems Sister No Known Problems Brother SOCIAL HISTORY Social History Tobacco Use Smoking status: Never Passive exposure: Never Smokeless tobacco: Never Vaping Use Vaping Use: Never used Substance Use Topics Alcohol use: Yes Comment: glass of wine with dinner 3-5x per week Drug use: Never REVIEW OF SYSTEMS Abdomen: No abdominal pain, nausea, vomiting, diarrhea, or constipation. No bloating, early satiety, indigestion, or increased flatulence. Bladder: No dysuria, gross hematuria, urinary frequency, urinary urgency, or incontinence Breast: No breast lumps, nipple d/c, overlying skin changes, redness or skin retraction Allergies and current medication updated:Yes EXAM: Ht 5' .5 (1.54m) Wt 148 lb 12.8 oz (67.5kg) BMI 28.57 kg/(m^2). GENERAL: pleasant, female in no apparent distress HEENT: Normocephalic, atraumatic, mucus membranes moist, and no lesions NECK: Supple, full range of motion, no adenopathy, and thyroid normal DERMATOLOGY: Normal, without lesions, non-icteric, and non-hirsute BREAST: soft, non-tender, symmetric, no dominant mass, normal nipple-areolar complex, no lymphadenopathy, and no nipple discharge CHEST: Normal inspiratory effort ABDOMEN: soft, non-tender, and no masses PELVIC: external genitalia normal, normal Bartholin's glands, urethra, Enderlin's glands, no vulvar lesions, physiologic discharge present, normal appearing perineal body and perianal region, cervix surgically absent BIMANUAL: no adnexal masses, non-tender, and uterus surgically absent RECTOVAGINAL: deferred. NEURO: alert and oriented x3,exam grossly non-focal EXTREMITIES: normal ASSESSMENT/PLAN: 1) Health maintenance: Pap/HPV screening no longer needed Mammogram ordered for [facility] Nutrition, exercise and routine health maintenance exams reviewed. Calcium/Vitamin D supplementation information provided. 2) Follow up one year or sooner as needed Gracia Bhardwaj APRN.CHUCK BONER documented in this encounter [facility] 06-29-2023 Miscellaneous Notes Received records from [facility]. Placed on providers desk for review for appt. On 09/04/23. Nellie Dickson LPN \ documented in this encounter [facility] 11-14-2022 Note ORIGINAL EXAMINATION: MRI OF THE LEFT SHOULDER WITHOUT CONTRAST11/14/2022 9:09 am TECHNIQUE: Multiplanar multisequence MRI of the left shoulder was performed without the administration of intravenous contrast. COMPARISON: None HISTORY: ORDERING SYSTEM PROVIDED HISTORY: Reason for Exam: ANTERIOR DISLOCATION OF LEFT HUMERUS ON NOVEMBER 01 STATUS POST FALL. ANTERIOR JOINT PAIN. FINDINGS: MUSCLES AND TENDONS: There is low-grade partial articular surface tearing of essentially the entire of the supraspinatus tendon. Mildly increased signal of the supraspinatus tendon is consistent with superimposed tendinosis. The infraspinatus tendon is intact. The teres minor tendon is intact. The subscapularis tendon is intact. The tendon of the long head of the biceps is intact and is seated within the bicipital groove distally. No significant rotator cuff muscle atrophy is evident. Mild edema of the deltoid noted. No mass is evident and the suprascapular or spinoglenoid notch or the quadrilateral space. OSSEOUS STRUCTURES AND JOINTS: Complex tearing of the anteroinferior, anterior, anterosuperior, and posterior labrum. No stripping of the periosteum or extension to the biceps anchor. Possible superior paralabral cyst is noted. Thickening and increased signal of both inferior glenohumeral ligaments with partial tearing of the anterior band near the glenoid (coronal images -10/26). There is minimal degenerative change of the glenohumeral joint. There is mild degenerative change of the acromioclavicular joint. The acromion is Type II in morphology without significant lateral downsloping. There is no glenohumeral joint effusion. Flattening and bone marrow edema of the posterolateral humeral head is consistent with an impaction fracture (Hill-Sachs lesion). Bone marrow signal intensity is otherwise within normal limits. No Bankart osseous Bankart fracture is evident. SOFT TISSUES: There is a small volume of fluid in the subacromial subdeltoid bursa. There is no significant volume of fluid in the subcoracoid bursa. Associated soft tissues of the shoulder are grossly unremarkable. IMPRESSION: 1. Posterosuperior humeral head impaction fracture (Hill-Sachs lesion) with no associated Bankart fracture. 2. Low-grade partial articular surface tearing of the supraspinatus tendon with superimposed tendinosis. Mild subacromial-subdeltoid bursitis. 3. Near circumferential complex labral tearing as above. Possible superior paralabral cyst. 4. Partial tearing/intermediate grade sprain of the anterior band of the inferior glenohumeral ligament near the glenoid and associated superimposed low-grade sprain of both inferior glenohumeral ligament bands. 5. Low-grade deltoid muscular strain. I have personally reviewed the images of this examination and agree with the resident's findings and interpretation. Interpreted by: Denis Guadalupe DO Preliminary Report By: Severino Will Electronically signed By Denis Guadalupe DO Dictated Date: 11/14/2022 10:08:33 AM Prelim Date: 11/14/2022 1:03:55 PM Sign Date: 11/14/2022 1:03:55 PM Ordering Provider: JOSIAH HALEY [facility] 11-14-2022 Note ORIGINAL EXAMINATION: MRI OF THE LEFT SHOULDER WITHOUT CONTRAST11/14/2022 9:09 am TECHNIQUE: Multiplanar multisequence MRI of the left shoulder was performed without the administration of intravenous contrast. COMPARISON: None HISTORY: ORDERING SYSTEM PROVIDED HISTORY: Reason for Exam: ANTERIOR DISLOCATION OF LEFT HUMERUS ON NOVEMBER 01 STATUS POST FALL. ANTERIOR JOINT PAIN. FINDINGS: MUSCLES AND TENDONS: There is low-grade partial articular surface tearing of essentially the entire of the supraspinatus tendon. Mildly increased signal of the supraspinatus tendon is consistent with superimposed tendinosis. The infraspinatus tendon is intact. The teres minor tendon is intact. The subscapularis tendon is intact. The tendon of the long head of the biceps is intact and is seated within the bicipital groove distally. No significant rotator cuff muscle atrophy is evident. Mild edema of the deltoid noted. No mass is evident and the suprascapular or spinoglenoid notch or the quadrilateral space. OSSEOUS STRUCTURES AND JOINTS: Complex tearing of the anteroinferior, anterior, anterosuperior, and posterior labrum. No stripping of the periosteum or extension to the biceps anchor. Possible superior paralabral cyst is noted. Thickening and increased signal of both inferior glenohumeral ligaments with partial tearing of the anterior band near the glenoid (coronal images ). There is minimal degenerative change of the glenohumeral joint. There is mild degenerative change of the acromioclavicular joint. The acromion is Type II in morphology without significant lateral downsloping. There is no glenohumeral joint effusion. Flattening and bone marrow edema of the posterolateral humeral head is consistent with an impaction fracture (Hill-Sachs lesion). Bone marrow signal intensity is otherwise within normal limits. No Bankart osseous Bankart fracture is evident. SOFT TISSUES: There is a small volume of fluid in the subacromial subdeltoid bursa. There is no significant volume of fluid in the subcoracoid bursa. Associated soft tissues of the shoulder are grossly unremarkable. IMPRESSION: 1. Posterosuperior humeral head impaction fracture (Hill-Sachs lesion) with no associated Bankart fracture. 2. Low-grade partial articular surface tearing of the supraspinatus tendon with superimposed tendinosis. Mild subacromial-subdeltoid bursitis. 3. Near circumferential complex labral tearing as above. Possible superior paralabral cyst. 4. Partial tearing/intermediate grade sprain of the anterior band of the inferior glenohumeral ligament near the glenoid and associated superimposed low-grade sprain of both inferior glenohumeral ligament bands. 5. Low-grade deltoid muscular strain. I have personally reviewed the images of this examination and agree with the resident's findings and interpretation. 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 In review, she has an extremely strong family history of osteoporosis, and her mother shortly after sustaining a particularly severe T5 fracture. Her mother also lost 6 inches of height from her youth, and her maternal aunt also had multiple fragility fractures. Therefore, Chichi has a heightened awareness of the risks of osteoporotic fracture, and is anxious to do anything necessary to avoid fractures herself. However, she does not have excessive risk factors for fracture in her osteopenia is relatively mild. She did take Actonel for a total of 10 years, and in 2012 I recommended that she discontinue this medication, and so far I have not recommended that she restart any anti-resorptive therapy - drug holiday now for 9 years. Over the past year, she has been doing very well. 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 She exercises regularly, and she has no difficulty with balance - she goes on 5-7 miles of walks per day, enjoys kayaking at her [place], biking, gardening; enjoys kayaking. She has had no falls, no fractures, no height loss. She has chronic lower back pain which has not changed recently. She has never had a kidney stone. She has not required any steroids and she continues to be a nonsmoker. She continues take 1 multivitamin per day, at a separate time of day she takes a calcium tablet. She 10,000 units of vitamin D every other day. She eats yogurt every day, but otherwise is lactose intolerant. 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 Otherwise, a full review of systems is negative In review of DXA 05/2021 compared with 2019: Region: g/cm2 T-Score Lumbar 1-3 Spine: 1.122 -0.4 Left Femoral Neck: 0.828 -1.5 Left Total Hip: 0.860 -1.2 Right Femoral Neck: 0.799 -1.7 Right Total Hip: 0.851 -1.2 COMPARISON WITH PREVIOUS EXAMS ON: 05/05/2019. Body Region: Prev BMD Current BMD Change (g/cm2) (g/cm2) (%) Lumbar 1-3 Spine: 1.124, 1.122, -0.2% Left Total Hip: 0.869, 0.860, -1.0% Right Total Hip: 0.819, 0.851, 3.9% labwork today: Component Latest Ref Rng & Units 06/08/2022 BUN 7 - 25 mg/dL 24 CREATININE SERUM 0.50 - 1.20 mg/dL 0.82 BUN/CREA RATIO 29 eGFR, CKD-EPI, Female >=60 mL/min/1.73m2 80 Albumin 3.5 - 5.0 g/dL 4.5 VITAMIN D 25 HYDROXY 30.0 - 100.0 ng/mL 63.4 CALCIUM 8.6 - 10.5 mg/dL 9.7 TSH, HIGH-SENSITIVITY 0.550 - 4.780 uIU/mL 0.906 Intact PTH 14.0 - 72.0 pg/mL 45.5 She has a past medical history of Asthma, Bladder infection, Bronchitis, HTN (hypertension), Lower back injury, Osteopenia, and Skin granuloma. She has a past surgical history that includes tonsillectomy; kidney cyst removal; and hysterectomy. She has a current medication list which includes the following prescription(s): albuterol 108 (90 Base) MCG/ACT Aero Soln inhaler, aspirin 81 MG PO TABS, Budesonide-Formoterol Fumarate (SYMBICORT IN), Calcium Carbonate (CALTRATE 600 PO), Cholecalciferol (VITAMIN D3) 2000 UNITS PO TABS, losartan 12.5 MG Tab tablet, Multiple Vitamins-Minerals (CENTRUM WOMEN PO), [place]-3 Fatty Acids (FISH OIL PO), and rosuvastatin 10 MG tablet. Physical Exam Blood pressure 128/78, pulse 54, resp. rate 16, height 1.551 m (5' 1.06 ), weight 68.5 kg (151 lb), SpO2 98 %. In general, She appears well and in no acute distress. Pleasant and appropriate. Head and neck exam reveals PERRL, anicteric sclera, no periorbital edema, extraocular muscles are intact, sclera are not blue. OP clear, mmm - -no missing teeth or exposed jaw bone. Thyroid exam is normal to visualization and palpation without nodules; no anterior or posterior cervical lymphadenopathy. Lungs are clear; cardiac exam reveals a regular rate and rhythm without murmurs. There is no vertebral pain, kyphosis or scoliosis. There are no tremors of the outstretched hands and biceps reflexes are normal, 2+. There is no pretibial rash or edema and no tenderness to palpation of long-bones. Assessment and Plan: 1) Osteopenia - she has a strong family history of multiple vertebral compression fractures in her mother However, she has no other risk factors for fracture Bone density today is actually stable, without any decline, compared with two years ago I continue to recommend we avoid antiresorptive therapy, for now - FRAX is low We discussed calcium + vitamin D supplementation. We discussed the importance of fall avoidance and of avoiding anterior flexion strain to the spine. Her vitamin D is a little high - I recommend she decrease vitamin D to 10,000 units only 2 or 3 days per week RTC 1 year; repeat DXA at that time and we'll go from there documented in this encounter [facility] Evaluation + Plan note No data available for this section [facility] Diagnosis Osteopenia, unspecified location Menopause Symptomatic menopausal or female climacteric states [facility] Diagnosis Encounter for gynecological examination (general) (routine) without abnormal findings- Primary Encounter for screening mammogram for malignant neoplasm of breast Other screening mammogram documented in this encounter [facility] Discharge instructions No data available for this section [facility] Reason for Referral Specialty Diagnoses / Procedures Referred By Contac t Referred To Contact Diagnoses Osteopenia, unspecified location Menopause Procedures BONE DENSITY AXIAL (HIP, PELVIS, SPINE) [place] DEXA,BONE DENSITY,AXIAL SKELETON Lex Haq MD [address] [address] Referral ID Status Reason Start Date Expiration Date V isits Requested Visits Authorized [id number] New Request 06/08/2022 07/03/2023 1 1 Referral ID Status Reason Start Date Expiration Date V isits Requested Visits Authorized [id number] Pending Review 07/05/2022 07/30/2023 1 1 Summary Purpose Family History No Family History Records FoundNo Family History Records FoundNo Family History Records Found Advance Directives No Advanced Directives Records FoundNo Advanced Directives Records FoundNo Advanced Directives Records Found Additional Source Comments Reason for Visit (unrecogniz ed section and content) Reason Comments Appointment Specialty Diagnoses / Procedures Referred By Contac t Referred To Contact Diagnoses Osteopenia, unspecified location Menopause Procedures BONE DENSITY AXIAL (HIP, PELVIS, SPINE) [place] DEXA,BONE DENSITY,AXIAL SKELETON Lex Haq MD [address] [id number] Referral ID Status Reason Start Date Expiration Date V isits Requested Visits Authorized [id number] Pending Review 07/05/2022 07/30/2023 1 1 Reason Comments Yearly Exam Care Teams (unrecognized sec tion and content) Yoghurt Maker Relationship Specialty Start Date End Date Jo Ann Novak MD [address] [place] [address] PCP - General Family Medicine 04/26/16 Yoghurt Maker Relationship Specialty Start Date End Date Jo Ann Novak MD [address] [place], [place] [id number] PCP - General Family Medicine 02/24/13 Yoghurt Maker Relationship Specialty Start Date End Date Jo Ann Novak MD [address] [place] [address] PCP - General Family Medicine 04/26/16 INFORMATION SOURCE (unrecogn ized section and content) DATE CREATED AUTHOR AUTHOR'S ORGANIZ ATION 07/07/2023 [facility] DATE CREATED AUTHOR AUTHOR'S ORGANIZ ATION 09/05/2023 [facility] Source Comments (unrecognize d section and content) In the event this informatio n is protected by the Federal Confidentiality of Alcohol and Drug Abuse Patient Records regulations: The Federal rules restrict any use of the information to criminally investigate or prosecute any alcohol or drug abuse patient[facility] the event this information is protected by the Federal Confidentiality of Alcohol and Drug Abuse Patient Records regulations: The Federal rules restrict any use of the information to criminally investigate or prosecute any alcohol or drug abuse patient.[facility] FOR RECORDS PERTAINING TO PATIENTS WHO ARE OR HAVE BEEN ENROLLED IN A CHEMICAL DEPENDENCY/SUBSTANCEABUSE PROGRAM, SOME INFORMATION MAY BE OMITTED. This clinical summary was aggregated from multiple sources. Caution should be exercised in using it in the provision of clinical care. This summary normalizes information from multiple sources, and as a consequence, information in this document may materially change the coding, format and clinical context of patient data. In addition, data may be omitted in some cases. CLINICAL DECISIONS SHOULD BE BASED ON THE PRIMARY CLINICAL RECORDS. [facility] [employer] [facility]. provides no warranty or guarantee of the accuracy or completeness of information in this document.
--- NOTE | 2023-11-09 06:21 | ECHOD_ITS ---
Reason For Study: ASHD Procedure This was a 2D Doppler, Color Flow transthoracic echocardiogram. Exam performed in department. Left Ventricle Normal LV size. Left ventricular systolic function is normal. The estimated ejection fraction is 65 %. Stage 1 diastolic dysfunction. No regional wall motion abnormalities noted. Right Ventricle Normal RV size. Normal systolic function. Atria Normal left atrium. Normal right atrium. Mitral Valve Normal mitral valve. Mild (1+) eccentric mitral valve insufficiency. Tricuspid Valve Normal tricuspid valve. Mild tricuspid valve insufficiency. Aortic Valve Trisinus/trileaflet aortic valve. Pulmonic Valve Normal pulmonic valve. Great Vessels Normal aortic root. The pulmonary artery is normal size. Normal inferior vena cava. Pericardium/Pleural No pericardial effusion. Medication Performed a rapid injection of agitated mix of 9 cc saline and 1cc air to assess for atrial septal defect. MMode/2D Measurements & Calculations LVIDd: 3.8 cm IVSd: 1.5 cm Ao root diam: 3.1 cm LVIDs: 1.9 cm LVPWd: 0.91 cm RVDd: 2.7 cm FS: 51.4 % LAV(MOD-bp): 31.5 ml LVAd ap4: 22.2 cm2 LVAd ap2: 24.6 cm2 LAV(MOD-bp) Indexed: 18.8 ml/m2 LVLd ap4: 7.3 cm LVLd ap2: 7.5 cm LAV(MOD-sp2): 33.3 ml EDV(MOD-sp4): 55.0 ml EDV(MOD-sp2): 68.1 ml LAV(MOD-sp4): 29.1 ml EDV(sp4-el): 56.8 ml EDV(sp2-el): 68.3 ml LVAs ap4: 11.1 cm2 LVAs ap2: 12.1 cm2 LVLs ap4: 6.0 cm LVLs ap2: 6.4 cm ESV(MOD-sp4): 17.9 ml ESV(MOD-sp2): 20.2 ml ESV(sp4-el): 17.3 ml ESV(sp2-el): 19.4 ml EF(MOD-sp4): 67.5 % EF(MOD-sp2): 70.3 % EF(sp4-el): 69.5 % SV(MOD-sp4): 37.1 ml SV(MOD-sp2): 47.9 ml SV(sp4-el): 39.5 ml LA A4 area: 12.2 cm2 LA dimension(2D): 3.4 cm RA A4 area: 9.4 cm2 TAPSE: 1.9 cm Time Measurements MV dec time: 0.22 sec Doppler Measurements & Calculations MV E max sammy: 64.0 cm/sec Lat Peak E' Sammy: 9.2 cm/sec Med Peak E' Sammy: 6.8 cm/sec MV A max sammy: 89.6 cm/sec E/E' lat: 6.9 E/E' med: 9.4 MV E/A: 0.71 Ao V2 max: 123.2 cm/sec LV V1 max: 106.1 cm/sec MV dec slope: 289.1 cm/sec2 Ao max P.1 mmHg LV V1 max P.5 mmHg Ao V2 mean: 88.5 cm/sec LV V1 mean P.6 mmHg Ao mean P.5 mmHg LV V1 mean: 76.3 cm/sec Ao V2 VTI: 30.3 cm LV V1 VTI: 23.5 cm AV (velocity ratio): 0.78 PA V2 max: 79.6 cm/sec TR max sammy: 202.1 cm/sec TR max P.3 mmHg ECHO/Echo Complete Interpretation Summary Normal LV size. Left ventricular systolic function is normal. The estimated ejection fraction is 65 %. Stage 1 diastolic dysfunction. Mild tricuspid valve insufficiency. The global longitudinal strain is normal. The global longitudinal strain = -19. 9 % (normal). Ordering Physician: Jim Lee Referring Physician: Jim Lee Performed By: Kiya Oneal RDCS
--- NOTE | 2023-11-09 16:52 | STRESSREP_ITS ---
Stress Test Report Exercise myocardial perfusion stress test. 62-year-old lady with a history of elevated coronary calcium score Stress protocol: Resting EKG demonstrates normal sinus rhythm with a rate of 70 bpm resting blood pressure is 120/84 mmHg. The patient exercised according to the regular Anam protocol for a total duration of 9 minutes attaining a maximum heart rate of 169 bpm which was 108% of maximum predicted heart rate; the maximum workload was 10.1 metabolic equivalents. At rest there were no ST or T wave changes noted to suggest ischemia and at peak exercise upsloping ST changes only were noted which did not meet the criteria for ischemia. No clinical angina was noted the test was terminated due to the target heart rate being achieved/fatigue. The peak blood pressure was 192/74 mmHg. Rate-pressure product was 31,000. Myocardial perfusion protocol. 11.3 mCi of technetium 99m sestamibi was injected at rest. The patient exercis ed according to regular Anam protocol for total duration of 9 minutes and at peak exercise 33.7 mCi of technetium 99m sestamibi was injected stress images were obtained stress and rest images were reconstructed in comparing the short axis vertical long and horizontal long axis. Gated images were also obtained. Perfusion SPECT analysis: Review of the stress images demonstrate normal uptake of tracer noted in all areas of the myocardium. The resting images similarly demonstrate normal uptake of tracer noted in all areas of the myocardium. No areas of reversibility are noted to suggest ischemia no previous infarct was noted. Gated SPECT analysis: The gated ejection fraction is 78%. Conclusion: Normal exercise myocardial perfusion stress test at a high workload Preserved ejection fraction.
== END | disposition home or self-care (01) ==
LOC: CVS 06:18
PROVIDERS: PCP Family Medicine; Referring Provider Family Medicine; Visit Provider Family Medicine
DX: I25.10 Atherosclerotic heart disease of native coronary artery without angina pectoris (principal); I10 Essential (primary) hypertension
CPT/HCPCS: 78452; 93017; 93306; A9500; A4216

== ENCOUNTER 2023-12-02 06:10 | Emergency (ER) | payer OTHER, SELFPAY ==
[2023-12-02 06:11] VITALS: BP 138/79; PULSE 113; RESP 20; TEMP 36.9; O2SAT 97; BMI 29.4
--- NOTE | 2023-12-02 06:11 | EX.ED.VIS.UR ---
HPI HPI - URI History of Present Illness Chief Complaint: Cold Sx Detail of Chief Complaint: Upper respiratory tract infectious symptoms Informant: patient Onset/Context/Timing Onset: Days (November 26) Context: Sudden Onset Timing: Continuous and Waxes and wanes Quality: Hoarse voice, throat discomfort, dyspnea with intermittent wheezing. Current Severity: Mild Maximum Severity: Moderate Worsened by: Not Worsened By Swallowing, Eating Solids or Drinking Liquids Relieved by: Not Relieved By Tylenol or NSAIDs Associated Symptoms Associated Symptoms: Positive for Nasal Congestion, Nausea, Diarrhea, Nonproductive cough and -; Negative for Headache, Sinus Pressure, Myalgias, Chest Pain, Hemoptysis or Productive Cough Narrative Narrative: Patient is a 62-year-old woman with history of asthma, hypertension and hyperlipidemia. She presents because of upper respiratory tract symptoms that started November 26. She does complain of nasal congestion. She has a hoarse voice. She has a cough that is nonproductive. She denies pleuritic pain. She denies fever or chills. She denies headache, visual, ocular auditory symptoms. Denies neck pain or neck stiffness. She denies GI symptoms. She denies myalgias or arthralgias. She denies elevated temperature. She did a home COVID test which was negative. Prior similar symptoms: Yes Recent Illness/Hospitalization: No ROS ROS ED Constitutional Constitutional ED: Denies chills or fever(s) Eyes Eyes: Denies blurry vision or change in vision ENT ENT ED: Reports rhinorrhea and sore throat; Denies ear pain Cardiovascular Cardiovascular: Denies chest pain, orthopnea, palpitations or paroxysmal nocturnal dyspnea Respiratory/Chest Respiratory/Chest: Reports cough; Denies dyspnea, dyspnea on exertion, orthopnea or paroxysmal nocturnal dyspnea Gastrointestinal Gastrointestinal: Denies abdominal pain, melena or nausea Musculoskeletal Musculoskeletal: Denies arthralgias or myalgias Integumentary Denies rash Neurologic Neurologic: Denies headache(s) or weakness Endocrine Endocrinology: Denies cold intolerance or heat intolerance Hematologic/Lymphatic Hematologic/Lymphatic: Denies easy bleeding or easy bruising [facility] Medical History Asthma Atherosclerotic heart disease of [place] coronary artery without angina pectoris Essential (primary) hypertension Finger dislocation Hiatal hernia Hyperlipidemia Home Medications albuterol sulfate 90 mcg/actuation aerosol inhaler (Ventolin HFA) 1 - 2 puff inhalation Q4H PRN PRN Sob &/Or Wheezing 08/24/17 [History Last Taken Unknown] aspirin 81 mg tablet,delayed release 81 mg PO DAILY@0800 08/24/17 [History Last Taken 08/18/17] calcium carbonate 600 mg calcium (1,500 mg) tablet 600 mg PO DAILY 08/24/17 [History Last Taken Unknown] cholecalciferol (vitamin D3) 125 mcg (5,000 unit) capsule 5,000 unit PO DAILY 08/24/17 [History Last Taken Unknown] sjjstnop-cmt-tdhvb acid 0.4 mg-lycopene 300 mcg-lutein 250 mcg tablet (Centrum Silver) 1 ea PO DAILY 08/24/17 [History Last Taken Unknown] omega-3 fatty acids-fish oil 340 mg-1,000 mg capsule (Fish Oil) 1 ea PO DAILY 08/24/17 [History Last Taken Unknown] coenzyme Q10 100 mg capsule 100 mg PO DAILY 10/10/23 [History Last Taken Unknown] losartan 25 mg tablet 25 mg PO DAILY 10/10/23 [History Last Taken Unknown] rosuvastatin 10 mg tablet 20 mg PO DAILY 10/10/23 [History Last Taken Unknown] budesonide-formoterol HFA 160 mcg-4.5 mcg/actuation aerosol inhaler (Symbicort) 1 inh inhalation BID 12/02/23 [History Last Taken Unknown] Allergy/AdvReac Type Severity Reaction Status Date / Time ether [Ether] Allergy Other Verified 12/02/23 06:14 bupropion [From Contrave] AdvReac Intermediate Nausea Verified 12/02/23 06:14 lisinopril AdvReac Intermediate cough Verified 12/02/23 06:14 naltrexone [From Contrave] AdvReac Intermediate Nausea Verified 12/02/23 06:14 Surgical History History of hysterectomy S/P trigger finger release Social History Smoking Status: Never smoker alcohol intake: current alcohol intake frequency: holidays/special occasions only EXAM Physical Exam Const Vital Signs: 12/02/23 06:11 12/02/23 06:11 12/02/23 06:20 Temperature 98.5 F 98.5 F Temperature Source Oral Oral Pulse Rate 113 H 103 H Respiratory Rate 20 H 23 H Respiratory Effort Short of Breath Respiratory Pattern Tachypnea Blood Pressure 138/79 H 136/78 H Blood Pressure Mean 98 97 Pulse Ox 97 98 Oxygen Delivery Method Room Air Room Air Positive well nourished, well developed and obese General Appearance ED: well developed and NAD; Negative for cyanotic, diaphoretic or pallor Nutritional Appearance: obese HEENT Reports moist mucous membranes and dry mucous membranes HEENT Narrative: Nares patent. Posterior pharynx reveals postnasal drainage. Ears normal. normocephalic and atraumatic Mouth ED: Yes dry mucous membranes Mouth: dry mucous membranes Eyes PERRL and EOMs intact bilaterally Neck no lymphadenopathy, supple, no meningeal signs and no JVD Neck Narrative: Trachea is midline. There is no stridor. There is mild dysphonia. General: Negative for anterior neck swelling or lymphadenopathy Resp No normal respiratory effort Cardio S1 normal heart sound, S2 normal heart sound and no murmurs Rate: tachycardic Rhythm: regular rhythm GI non-tender, non-distended and no masses Auscultation: normoactive bowel sounds Back/Spine no CVA tenderness Extremity normal to inspection and full ROM General Extremety ED: Negative for cyanosis General Extremity: Negative for cyanosis Neuro oriented x3 and CN's II-XII intact bilaterally Sensorium / Orientation: alert Psych mental status grossly normal Skin General Skin Exam: Negative for jaundice or pallor Lesions: No no lesions MDM MDM MDM Narrative Medical decision making narrative: Patient's symptoms are suggestive of viral illness with laryngitis. Because patient has abnormal breath sounds on the right will obtain chest x-ray. If she has pneumonia will place Blood work. History & Record Review Additional record(s) reviewed:: Prior outpatient record, Prior ED visit and Prior labs Radiography Chest X-Ray - ED: 2 View and Read by ED Physician (Independently interpreted by me at 0645 as negative. Cardiac silhouette and size normal. Mediastinum is normal. Lung parenchyma without infiltrate. There is no effusion. Osseous structures are unremarkable.) Treatment and Re-Evaluation Narrative: Patient was informed since her chest x-ray does not reveal any abnormality her symptoms are consistent with a viral illness. She probably will be ill for another 7 to 10 days. Discharge Plan Triage Chief Complaint: Cold Sx ED Provider: Mahesh Quiñonez Dx/Rx/DC Orders Clinical Impression: Laryngitis, acute, Upper respiratory infection with cough and congestion, Hyperlipidemia, Atherosclerotic heart disease of [place] coronary artery without angina pectoris, Essential (primary) hypertension Instructions: ED Laryngitis, ED URI, Viral, No Abx (Adult) Prescriptions: No Action losartan 25 mg tablet 25 mg PO DAILY rosuvastatin 10 mg tablet 20 mg PO DAILY coenzyme Q10 100 mg capsule 100 mg PO DAILY aspirin 81 MG tablet 81 mg PO DAILY@0800 calcium carbonate 600 MG tablet 600 mg PO DAILY albuterol sulfate [Ventolin HFA] 1 INHALER inhaler 1 - 2 puff inhalation Q4H PRN PRN (Reason: Sob &/Or Wheezing) cholecalciferol (vitamin D3) 5,000 UNIT capsule 5,000 unit PO DAILY Centrum Silver 1 EACH tablet 1 ea PO DAILY Fish Oil 1 EACH capsule 1 ea PO DAILY budesonide-formoterol [Symbicort] 160-4.5 mcg/actuation HFA aerosol inhaler 1 inh inhalation BID Primary Care Provider: Jim Lee Referrals: Jim Lee MD [Primary Care Provider] - 1 Week if not improving Activity Restrictions/Additional Instructions: 1. You probably will be ill for another 7 to 10 days. 2. Antibiotics are not indicated at this time. If you are ill for an additional week antibiotics would be indicated. Disposition Disposition: Home, Self Care
[2023-12-02 06:20] VITALS: BP 136/78; PULSE 103; RESP 23; TEMP 36.9; O2SAT 98
--- NOTE | 2023-12-02 06:39 | RAD_ITS ---
INDICATION: Cough EXAMINATION/TECHNIQUE: X-RAY - XR Chest 2 Views COMPARISON: None. FINDINGS: LINES/DEVICES: None. LUNGS: No consolidation. No pneumothorax. MEDIASTINUM: Aorta is atherosclerotic. CARDIAC SILHOUETTE: Not enlarged. BONES AND SOFT TISSUES: No acute abnormalities. RAD/Chest PA and Lateral IMPRESSION: No evidence of active intrathoracic disease. Electronically Signed: Lila Pena MD at 7:14 EST ,
[2023-12-02 06:51] VITALS: BP 138/79; PULSE 96; RESP 20; O2SAT 98
--- OUTSIDE RECORDS SUMMARY | 2023-12-02 06:53 | XMS RPT_ITS | CCD ---
Author Name Unknown Address [address] [place] [address] Organization [facility] Care Team Providers Care Supervisor Sample Preparation Name Role Phone Jo Ann Novak MD [...] adverse reactions to drug 01-24-2007 Anaphylaxis [facility] Medications Current Medications Medication Drug Class(es) Dates Sig (Normalized) Sig (Original) [id number] 200 actuat albuterol 0.09 mg/actuat metered dose [...] Hypovitaminosis D Take by mouth. 0 Active [place]-3 Fatty Acids (FISH OIL PO) (2 sources) [place]-3 Fatty Ac ids (FISH OIL PO) risedronate [...] 07:26-0400 Body height 153.7 cm Gracia Jayne YEAST WASHER.CHANGEOVER OPERATOR Work Phone: [facility] 09-04-2023 07:26-0400 Body weight 67.5 kg Gracia Tutor Key YEAST WASHER.CHANGEOVER OPERATOR Work Phone: [facility] 09-04-2023 07:26-0400 Diastolic blood pressure 62 mm[Hg] Gracia Tutor Key YEAST WASHER.CHANGEOVER OPERATOR Work Phone: [facility] 09-04-2023 07:26-0400 Systolic blood pressure 100 mm[Hg] Gracia Tutor Key YEAST WASHER.CHANGEOVER OPERATOR Work Phone: [facility] 06-08-2022 09:52-0400 Body height 155.1 cm Lex Haq MD Work Phone: [facility] 06-08-2022 09:52-0400 Body mass index (BMI) [Ratio] 28.47 kg/m2 Lex Haq MD Work Phone: [facility] 06-08-2022 09:52-0400 Body weight 68.49 kg Lex Haq MD Work Phone: [facility] 06-08-2022 09:52-0400 Diastolic blood pressure 78 mm[Hg] Lex Haq MD Work Phone: [facility] 06-08-2022 09:52-0400 Heart rate 54 /min Lex Haq MD Work Phone: [facility] 06-08-2022 09:52-0400 Respiratory rate 16 /min Lex Haq MD Work Phone: [facility] 06-08-2022 09:52-0400 SaO2% (BldA) [Mass fraction] 98 % Lex Haq MD Work Phone: [facility] 06-08-2022 09:52-0400 Systolic blood pressure 128 mm[Hg] Lex Haq MD Work Phone: [facility] Encounters Encounter Date Encounter Type Care Provider Facility Start: 09-04-2023 End: 09-04-2023 ambulatory [facility] Facility:[facility] Start: 09-04-2023 End: 09-04-2023 Patient encounter procedure Gracia Tutor Key YEAST WASHER.CHANGEOVER OPERATOR Work Phone: OB/Gynecology Procedures Date Procedure Procedure Detail Performing Clinician Start: 07-04-2023 Dxa bone density brenda dy 1/> sites axial skel Lex Haq MD Work Phone: Plan of Treatment Date Care Activity Detail Author Start: 07-02-2029 Tetanus vaccination TETANUS [facility] Start: 07-02-2029 Urine microalbumin profile DTaP,Tdap,Td Vaccine (2 - Td or Tdap) [facility] Start: 09-04-2024 BP Controlled (<130/80) BP Controlled (<130/80) [facility] Start: 07-09-2024 End: 07-09-2024 Patient encounter procedure 07/09/2024 1:20 PM EDT Office Visit [facility] [address] [place] [address] Lex Haq MD [address] [place] [address] [facility] Start: 10-17-2023 Mammography Mammogram Screening [facility] Start: 07-06-2023 Influenza vaccination [facility] Start: 07-04-2023 End: 07-04-2023 Patient encounter procedure 07/04/2023 Office Visit Endocrinology, Diabetes & Metabolism Lex Haq MD [address] [facility] [address] [place] [address] [facility] Start: 11-05-2022 DEPRESSION ASSESSMENT DEPRESSION ASSESSMENT [facility] Start: 07-06-2022 Influenza vaccination INFLUENZA VACCINE (#1) [facility] Start: 06-08-2022 End: 06-08-2023 Bone density scan BONE DENSITY AXIAL (HIP, PELVIS, SPINE) Imaging Routine Osteopenia, unspecified location Menopause Expected: 06/08/2022, Expires: 06/08/2023 [facility] Immunizations Immunization Date Immunization Notes Care Provider Fa cility 08-04-2022 influenza virus vaccine, unspecified formulation Lex Haq MD Work Phone: [facility] 07-18-2021 zoster vaccine, unspecified formulation Lex Haq MD Work Phone: [facility] Payers Date Payer Category Payer Unknown [id number] 2022 Unknown [id number] 2013 Unknown [id number] 2013 Unknown [id number] 1958 Unknown [id number] 1958 Unknown [id number] 1958 Unknown [id number] 1958 Unknown [id number] [id number] Social History Date Type Detail Facility Start: 09-04-2023 Tobacco smoking status NHIS Never smoked tobacco [facility] Start: 10-30-2018 End: 07-04-2023 Alcohol intake Current non-drinker of alcohol (finding) [facility] Start: 1960 Sex Assigned At Not on file [facility] Tobacco smoking status No Smoking Status Entered [facility] Sex Assigned At Female [facility] Start: 01-24-2007 Alcohol intake Not Asked [facility] Start: 07-04-2023 End: 09-04-2023 Gender identity Not on file [facility] Start: 07-04-2023 End: 09-04-2023 History of Social function [facility] Gender identity Identifies as fe male gender (finding) [facility] Start: 09-04-2023 Tobacco use and exposure Smokeless tobacco non-user [facility] Work Phone: Start: 09-04-2023 Alcohol intake Current drinke r of alcohol (finding) [facility] National Score (1-100), lower number is lower risk 75 [facility] Start: 09-04-2023 Alcohol Comment glass of wine with dinner 3-5x per week [facility] NEGATED: Highlighted rowStart: NINF History of tobacco use Passive smoker [facility] Work Phone: Clinical Notes 06-08-2022 to 09-04-2023 Gracia Bhardwaj APRN.CNP - 09/04/2023 7:24 AM EDTTelephone Encounter - Nellie Dickson LPN - 06/29/2023 3:35 PM Tor Haq MD - 06/08/2022 10:00 AM EDT Note Date & Type Note Facility 09-04-2023 Note HNO ID: [id number] Author: Gracia Bhardwaj APRN.CNP Service: ? 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 Postmenopausal: Yes -hysterectomy AGE 43 HRT use: No. Last Pap: normal History of abnormal pap: No Last mammogram: 2021 normal History of abnormal mammogram: No Sexually active: No OB History T0 L0 SAB0 IAB0 Ectopic0 Multiple0 Live Births0 Pouch Maker History LMP: Hysterectomy Age at Menarche: Age at First : Age at Menopause: Pouch Maker History Comments: Sexual Activity: Not Currently; No partner data on record Contraception: No contraception data on record PAST MEDICAL HISTORY Diagnosis Date Asthma Essential hypertension Flat feet, bilateral History of left shoulder fracture Hypercholesterolemia PAST SURGICAL HISTORY Procedure Laterality Date FOOT RIGHT OP SURGERY PAST SURGICAL HISTORY OF excison precancerous mole TONSILLECTOMY AND ADENOIDECTOMY tonsillectomy TOTAL ABDOM HYSTERECTOMY 04/21/2004 [place] HowePpkezzz-sstvtzmh-xpddurah [facility] PROCEDURE Left FAMILY HISTORY Problem Relation [...] external genitalia normal, normal Bartholin's glands, urethra, Brownfields's glands, no vulvar lesions, physiologic discharge present, normal appearing perineal body and perianal region, cervix surgically absent BIMANUAL: no adnexal masses, non-tender, and uterus surgically absent RECTOVAGINAL: deferred. NEURO: alert and oriented x3,exam grossly non-focal EXTREMITIES: normal ASSESSMENT/PLAN: 1) Health maintenance: Pap/HPV screening no longer needed Mammogram ordered for [facility] Nutrition, exercise and routine health maintenance exams reviewed. Calcium/Vitamin D supplementation information provided. 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 Postmenopausal: Yes -hysterectomy AGE 43 HRT use: No. Last Pap: normal History of abnormal pap: No Last mammogram: 2021 normal History of abnormal mammogram: No Sexually active: No OB History T0 L0 SAB0 IAB0 Ectopic0 Multiple0 Live Births0 Pouch Maker History LMP: Hysterectomy Age at Menarche: Age at First : Age at Menopause: Pouch Maker History Comments: Sexual Activity: Not Currently; No partner data on record Contraception: No contraception data on record PAST MEDICAL HISTORY Diagnosis Date Asthma Essential hypertension Flat feet, bilateral History of left shoulder fracture Hypercholesterolemia PAST SURGICAL HISTORY Procedure Laterality Date FOOT RIGHT OP SURGERY PAST SURGICAL HISTORY OF excison precancerous mole TONSILLECTOMY & ADENOIDECTOMY <AGE 10 1966 tonsillectomy TOTAL ABDOM HYSTERECTOMY 04/21/2004 [place] Tnhjivh-bzpjhbvz-lhonpkrn [facility] PROCEDURE Left FAMILY HISTORY Problem Relation [...] external genitalia normal, normal Bartholin's glands, urethra, Brownfields's glands, no vulvar lesions, physiologic discharge present, normal appearing perineal body and perianal region, cervix surgically absent BIMANUAL: no adnexal masses, non-tender, and uterus surgically absent RECTOVAGINAL: deferred. NEURO: alert and oriented x3,exam grossly non-focal EXTREMITIES: normal ASSESSMENT/PLAN: 1) Health maintenance: Pap/HPV screening no longer needed Mammogram ordered for [facility] Nutrition, exercise and routine health maintenance exams reviewed. Calcium/Vitamin D supplementation information provided. 2) Follow up one year or sooner as needed Gracia Bhardwaj APRN.CHANGEOVER OPERATOR documented in this encounter [facility] 06-29-2023 Miscellaneous Notes Received records from [facility] Placed on providers desk for review for appt. On 09/04/23. 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) presents [...] Tab tablet, Multiple Vitamins-Minerals (CENTRUM WOMEN PO), [place]-3 Fatty Acids (FISH OIL PO), and rosuvastatin [...] from there documented in this encounter [facility] Evaluation + Plan note No data available for this section [facility] Diagnosis Osteopenia, unspecified location Menopause Symptomatic menopausal or female climacteric states [facility] Encounter for gynecological examination (general) (routine) without abnormal findings- Primary Encounter for screening mammogram for malignant neoplasm of breast Other screening mammogram documented in this encounter [facility] Discharge instructions No data available for this section [facility] Reason for Referral Specialty Diagnoses / Procedures Referred By Contac t Referred To Contact Diagnoses Osteopenia, unspecified location Menopause Procedures BONE DENSITY AXIAL (HIP, PELVIS, SPINE) SD DEXA,BONE DENSITY,AXIAL SKELETON Lex Haq MD [address] [address] Referral ID Status Reason Start Date Expiration Date V isits Requested Visits Authorized [id number] New Request 06/08/2022 07/03/2023 1 1 Referral ID Status Reason Start Date Expiration Date V isits Requested Visits Authorized [id number] Pending Review 07/05/2022 07/30/2023 1 1 Summary [...] Procedures BONE DENSITY AXIAL (HIP, PELVIS, SPINE) SD DEXA,BONE DENSITY,AXIAL SKELETON Lex Haq MD [address] [address] Referral ID Status Reason Start Date Expiration Date V isits Requested Visits Authorized [id number] Pending Review 07/05/2022 07/30/2023 1 1 Reason Comments Yearly Exam Care Teams (unrecognized sec tion and content) Supervisor Sample Preparation Relationship Specialty Start Date End Date Jo Ann Novak MD [address] [place] [address] PCP - General Family Medicine 04/26/16 Supervisor Sample Preparation Relationship Specialty Start Date End Date Jo Ann Novak MD [address] [place], [place] [address] PCP - General Family Medicine 02/24/13 Supervisor Sample Preparation Relationship Specialty Start Date End Date Jo Ann Novak MD [address] [address] PCP - General Family Medicine 04/26/16 INFORMATION SOURCE (unrecogn ized section and content) DATE CREATED AUTHOR AUTHOR'S ORGANIZ ATION 07/07/2023 [facility] DATE CREATED AUTHOR AUTHOR'S ORGANIZ ATION 09/05/2023 [facility] Source Comments (unrecognize d section and content) In the event this informatio n is protected by the Federal Confidentiality of Alcohol and Drug Abuse Patient Records regulations: The Federal rules restrict any use of the information to criminally investigate or prosecute any alcohol or drug abuse patient.[facility] the event this information is protected by the Federal Confidentiality of Alcohol and Drug Abuse Patient Records regulations: The Federal rules restrict any use of the information to criminally investigate or prosecute any alcohol or drug abuse patient.[facility] FOR RECORDS PERTAINING TO PATIENTS WHO ARE [...] BE BASED ON THE PRIMARY CLINICAL RECORDS. [facility]. provides no warranty or guarantee of the accuracy or completeness of information in this document.
== END 2023-12-02 06:53 | disposition home or self-care (01) ==
LOC: ED 06:51
PROVIDERS: Emergency Provider Emergency Medicine; PCP Family Medicine; Visit Provider Emergency Medicine
DX: J04.0 Acute laryngitis (principal); I25.10 Atherosclerotic heart disease of native coronary artery without angina pectoris; I10 Essential (primary) hypertension; E78.5 Hyperlipidemia, unspecified; R05.9 Cough, unspecified; R09.81 Nasal congestion; Z79.899 Other long term (current) drug therapy; Z79.82 Long term (current) use of aspirin; Z90.710 Acquired absence of both cervix and uterus
CPT/HCPCS: 71046; 99282

== ENCOUNTER → 2024-03-03 | Outpatient (CLI) | payer MEDICARE, SELFPAY ==
[2024-03-03 10:37] LABS: ALB/GLOB Ratio 1.2 RATIO (0.9-2.4); AST(SGOT) 30 U/L (15-37); Alanine Aminotransfer ALT/SGPT 34 U/L (13-56); Albumin, Serum 3.7 g/dL (3.2-5.0); Alkaline Phosphatase 75 U/L (45-117); Anion Gap 7 (5-15); BUN 21 mg/dL (7-18); BUN/Creat Ratio 23.6 RATIO (10-20); Calcium,Total 9.2 mg/dL (8.5-10.1); Chloride 110 mmol/L (98-107); Cholesterol 130 mg/dL (200); Creatinine, Serum 0.89 mg/dL (0.55-1.02); EST Glomerular Filtration Rate 68 mL/min (>60); Est Glom Filt Rate - Afr Amer 82 mL/min (>60); Globulin 3.2 g/dL (2.2-4.2); Glucose 110 mg/dL (74-106); High Density Lipoprotein 67 mg/dL; Potassium 4.3 mmol/L (3.5-5.1); Protein, Total 6.9 g/dL (6.4-8.2); Sodium Level 142 mmol/L (136-145); Triglycerides 106 mg/dL; Very Low Density Lipoprotein 21 mg/dL (5-40)
== END | disposition home or self-care (01) ==
PROVIDERS: PCP Family Medicine; Referring Provider Family Medicine; Visit Provider Family Medicine
DX: E78.5 Hyperlipidemia, unspecified (principal); I10 Essential (primary) hypertension
CPT/HCPCS: 36415; 80053; 80061

== ENCOUNTER → 2024-08-13 | Outpatient (CLI) | payer MEDICARE, SELFPAY ==
[2024-08-13 12:48] LABS: Vitamin D,25 Hydroxy 61.3 ng/mL
[2024-08-13 12:54] LABS: PTHIN 64.1 pg/mL (18.4-80.1)
[2024-08-13 12:58] LABS: Anion Gap 5 (5-15); BUN 19 mg/dL (7-18); BUN/Creat Ratio 22.4 RATIO (10-20); Calcium,Total 9.3 mg/dL (8.5-10.1); Chloride 111 mmol/L (98-107); Cholesterol 148 mg/dL (200); Creatinine, Serum 0.85 mg/dL (0.55-1.02); EST Glomerular Filtration Rate 72 mL/min (>60); Est Glom Filt Rate - Afr Amer 87 mL/min (>60); Glucose 97 mg/dL (74-106); High Density Lipoprotein 81 mg/dL; Sodium Level 142 mmol/L (136-145); Triglycerides 85 mg/dL; Very Low Density Lipoprotein 17 mg/dL (5-40)
[2024-08-13 13:14] LABS: Microalbumin,Random Urine 18.7 mg/L (NO RANGE EST.)
[2024-08-13 13:51] LABS: Hemoglobin A1c 5.8 % (3.8-5.6)
== END | disposition home or self-care (01) ==
LOC: MFPLAB 10:18
PROVIDERS: PCP Family Medicine; Visit Provider Family Medicine
DX: Z00.00 Encounter for general adult medical examination without abnormal findings (principal)
CPT/HCPCS: 80048; 80061; 82043; 82306; 83036; 83970

== ENCOUNTER → 2024-08-14 | Outpatient (CLI) | payer MEDICARE, SELFPAY ==
[2024-08-14 17:09] LABS: Ionized Calcium Order ORDER TUBE
[2024-08-14 18:11] LABS: Ionized Calcium 5.31 mg/dL (4.36-5.20)
== END | disposition home or self-care (01) ==
LOC: MTLAB 16:06
PROVIDERS: PCP Family Medicine; Referring Provider Family Medicine; Visit Provider Family Medicine
DX: Z00.00 Encounter for general adult medical examination without abnormal findings (principal)
CPT/HCPCS: 82330

== ENCOUNTER → 2024-10-20 | Outpatient (CLI) | payer MEDICARE, SELFPAY ==
--- NOTE | 2024-10-20 10:06 | BI_ITS ---
MAMMOGRAPHY - BILATERAL SCREENING REASON FOR EXAM: Female, 63 years old. Routine annual screening examination. PERTINENT HISTORY: Non-contributory. TECHNIQUE: Digital bilateral breast nawaf (3D mammographic acquisition) in the CC and MLO projections. 2-D mediolateral oblique (MLO) and craniocaudad (CC) views of both breasts were obtained. CAD: Full Field Digital Mammography with Computer Added Detection was performed. COMPARISON: Comparison is made with prior study dated October 18, 2023 and October 17, 2022. FINDINGS: Breast Composition: There are scattered areas of fibroglandular density. There are no dominant masses or suspicious calcifications. Stable small benign appearing bilateral axillary lymph nodes. No other significant abnormalities are identified. There has been no significant change since the prior study. BI/SCRN MAMM (CAD)W/NAWAF BILAT IMPRESSION: Stable bilateral screening mammogram. Yearly follow-up mammogram recommended. (A) ASSESSMENT CATEGORY: BIRADS Category 2: Benign. A letter regarding these results will be sent to the patient by the facility within 30 days. Approximately 10% of breast cancers are not detected by mammography. A normal mammogram should not delay biopsy of a clinically suspicious abnormality. [id number] Electronically Signed: Lawrence Mccoy MD at 10:54 EST ,
== END | disposition home or self-care (01) ==
PROVIDERS: PCP Family Medicine; Referring Provider Nurse Practitioner Family; Visit Provider Nurse Practitioner Family
DX: Z12.31 Encounter for screening mammogram for malignant neoplasm of breast (principal)
CPT/HCPCS: 77063; 77067

== ENCOUNTER 2025-02-24 22:54 | Emergency (ER) | payer MEDICARE, SELFPAY ==
[2025-02-24 22:57] VITALS: PULSE 103; RESP 20; TEMP 36.6; O2SAT 100
--- NOTE | 2025-02-24 23:14 | EX.ED.DYSGE1 ---
HPI History of Present Illness Chief Complaint: Nausea/Vomiting/Diarrhea Informant: patient and friend Narrative Narrative: Patient is a 64-year-old female with past medical history of hypertension hyperlipidemia and asthma. 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 She states after arriving home the symptoms worsen and she began having bouts of vomiting and then progressed also having watery diarrhea. She states she had approximately 10-15 episodes of both and denies any dark discoloration or blood in either. She states that there has been no sick contacts and she denies any recent antibiotic use or travel outside the country. However because of the multiple episodes of vomiting and diarrhea she is concerned about dehydration and comes in for evaluation. [facility] Medical History Hiatal hernia Atherosclerotic heart disease of [place] coronary artery without angina pectoris Hyperlipidemia Essential (primary) hypertension Asthma Finger dislocation Home Medications ?Medication ?Instructions ?Recorded ?Last Taken ?Type albuterol sulfate 90 mcg/actuation 1 - 2 puff inhalation Q4H PRN PRN 08/24/17 Unknown History aerosol inhaler (Ventolin HFA) Sob &/Or Wheezing aspirin 81 mg tablet,delayed 81 mg PO DAILY@0800 08/24/17 08/18/17 History release calcium carbonate 600 mg PO DAILY 08/24/17 Unknown History cholecalciferol (vitamin D3) 125 5,000 unit PO DAILY 08/24/17 Unknown History mcg (5,000 unit) capsule [id number]-hrm-vaiht acid 0.4 1 ea PO DAILY 08/24/17 Unknown History mg-lycopene 300 mcg-lutein 250 mcg tablet (Centrum Silver) rosuvastatin 10 mg tablet 20 mg PO DAILY 10/10/23 Unknown History budesonide-formoterol HFA 160 1 inh inhalation BID PRN 11/10/24 Unknown History mcg-4.5 mcg/actuation aerosol inhaler (Symbicort) losartan 25 mg tablet 50 mg PO DAILY 11/10/24 Unknown History dicyclomine 20 mg tablet 20 mg PO 4X/DAY PRN Abdominal 02/25/25 Unknown Rx bloating/spasm #28 tabs prochlorperazine maleate 10 mg 10 mg PO TID PRN nausea and 04/23/25 Unknown Rx tablet (Compazine) vomiting #21 tabs Allergy/AdvReac Type Severity Reaction Status Date / Time ether (Ether) Allergy Other Verified 02/24/25 22:56 bupropion (From Contrave) AdvReac Intermediate Nausea Verified 02/24/25 22:56 lisinopril AdvReac Intermediate cough Verified 02/24/25 22:56 naltrexone (From Contrave) AdvReac Intermediate Nausea Verified 02/24/25 22:56 Family History no significant family his Surgical History History of hysterectomy S/P trigger finger release Social History Smoking Status: Never smoker alcohol intake: current alcohol intake frequency: holidays/special occasions only ROS ROS ED Constitutional Constitutional ED: Denies chills or fever(s) Eyes Eyes: Denies change in vision ENT ENT ED: Denies sore throat Cardiovascular Cardiovascular: Reports other Details: Positive syncope ; Denies chest pain Respiratory/Chest Respiratory/Chest: Denies cough or dyspnea Gastrointestinal Gastrointestinal: Reports abdominal pain, diarrhea, nausea and vomiting; Denies melena Genitourinary Genitourinary ED: Denies dysuria Musculoskeletal Musculoskeletal: Denies myalgias Integumentary Denies rash Neurologic Neurologic: Denies headache(s) Psychiatric Psychiatric: Reports anxiety Hematologic/Lymphatic Hematologic/Lymphatic: Denies easy bleeding or easy bruising EXAM Physical Exam Const Vital Signs: 02/24/25 22:57 02/24/25 23:10 Temperature 97.8 F Temperature Source Oral Pulse Rate 103 H Respiratory Rate 20 H Respiratory Effort Normal Respiratory Pattern Normal Pulse Ox 100 Oxygen Delivery Method Room Air Positive well nourished and well developed General Appearance ED: well developed; Negative for pallor HEENT Reports dry mucous membranes HEENT Narrative: Normocephalic atraumatic No tongue or lip swelling no oral lesions no airway edema or compromise Mucous membranes are dry and tacky; however no secondary findings in the posterior pharynx to suggest infection No tongue or cheek biting to suggest seizure activity Mouth ED: Yes dry mucous membranes Mouth: dry mucous membranes Eyes PERRL and EOMs intact bilaterally General Eye ED: Negative for scleral icterus Neck supple Neck Narrative: No nuchal rigidity or meningeal signs Resp normal respiratory effort and clear to auscultation bilaterally Cardio regular rhythm Rate: tachycardic and other Other Details: Slightly tachycardic rate with regular rhythm Radial and carotid pulses are equal and symmetric GI non-distended and no masses GI Narrative: Abdomen is soft and nondistended with hyperactive bowel sounds. There is mild diffuse pain with palpation greatest in the mid epigastric region. No voluntary guarding or rigidity or pulsatile mass. Auscultation: hyperactive bowel sounds Palpation: soft Extremity normal to inspection Neuro oriented x3, CN's II-XII intact bilaterally and no sensory deficits noted Neuro Narrative: GCS of 15 Cranial nerves II through XII are grossly intact without focal neurologic deficit No pronator drift no dysmetria no truncal ataxia NIH stroke scale score of 0 Sensorium / Orientation: alert Motor Exam: strength 5/5 throughout Psych Mood & Affect: anxious Skin no rashes or lesions noted, no wounds and No skin turgor normal Skin Narrative: Skin turgor is increased consistent with dehydration General Skin Exam: Negative for jaundice or pallor MDM MDM MDM Narrative Medical decision making narrative: Patient arrived to the ER with a soft nonsurgical abdomen so I felt no need for an emergent CT scan. She reported nausea vomiting diarrhea and differential diagnosis is for viral stomach infection such as norovirus versus rotavirus. Patient also could have biliary colic versus acute cholecystitis versus pancreatitis. There is concern for acute kidney injury or clinically significant electrolyte abnormality. Basic blood work was obtained. Her white count is elevated at 13.7 but she is afebrile and her abdomen overall is soft and nonsurgical and I feel this is most likely stress response and therefore do not feel the need for a CT scan. The remainder the labs show no significant findings to suggest pancreatitis [place] abnormality or concern for biliary colic/acute cholecystitis. After receiving IV fluids and Compazine patient had resolution of symptoms with no further bouts of vomiting or diarrhea while in the ER. Therefore she can be given symptomatic medication and is otherwise safe for discharge History & Record Review Discussion w/independent historian: Patient and Friend Lab Data Attestation: I reviewed the patient's lab results. Labs: Laboratory Results - last 24 hr 02/24/25 23:04 WBC 13.7 H RBC 4.87 Hgb 14.4 Hct 42.6 MCV 87.5 MCH 29.6 MCHC 33.8 RDW Std Deviation 42.5 RDW Coeff of Jeffrey 13.2 Plt Count 233 MPV 8.4 Immature Gran % (Auto) 0.300 Neut % (Auto) 91.0 H Lymph % (Auto) 4.6 L Bibb % (Auto) 3.9 Eos % (Auto) 0.1 Baso % (Auto) 0.1 Absolute Neuts (auto) 12.5 H Absolute Lymphs (auto) 0.63 L Nucleated RBC % 0 Sodium 139 Potassium 4.2 Chloride 105 Carbon Dioxide 19.8 L Anion Gap 14 BUN 22 H Creatinine 0.87 Estim Creat Clear Calc 56.79 Est GFR (MDRD) Non-Af 73 BUN/Creatinine Ratio 25.4 H Glucose 161 H Calcium 9.2 Magnesium 1.8 Total Bilirubin 0.49 Direct Bilirubin 0.23 AST 33 H ALT 28 Alkaline Phosphatase 75 Total Protein 6.9 Albumin 4.2 Globulin 2.7 Lipase 34 Discharge Plan Triage Chief Complaint: Nausea/Vomiting/Diarrhea Other Complaint: Syncope ED Provider: Jamal Crisostomo Dx/Rx/DC Orders Clinical Impression: Nausea vomiting and diarrhea, Mild dehydration, Essential (primary) hypertension, Hyperlipidemia Instructions: ED Dehydration (Adult), ED Gastroenteritis, Viral (Adult) Prescriptions: New prochlorperazine maleate [Compazine] 10 mg tablet 10 mg PO TID PRN (Reason: nausea and vomiting) Qty: 21 0RF dicyclomine 20 mg tablet 20 mg PO 4X/DAY PRN (Reason: Abdominal bloating/spasm) Qty: 28 0RF No Action rosuvastatin 10 mg tablet 20 mg PO DAILY losartan 25 mg tablet 50 mg PO DAILY aspirin 81 MG tablet 81 mg PO DAILY@0800 calcium carbonate 600 MG tablet 600 mg PO DAILY albuterol sulfate [Ventolin HFA] 1 INHALER inhaler 1 - 2 puff inhalation Q4H PRN PRN (Reason: Sob &/Or Wheezing) cholecalciferol (vitamin D3) 5,000 UNIT capsule 5,000 unit PO DAILY Centrum Silver 1 EACH tablet 1 ea PO DAILY budesonide-formoterol [Symbicort] 160-4.5 mcg/actuation HFA aerosol inhaler 1 inh inhalation BID PRN Primary Care Provider: Neno Lee Referrals: Neno Lee MD [Primary Care Provider] - Activity Restrictions/Additional Instructions: Your history exam and workup is most consistent with a viral stomach infection. This will last anywhere from 1 day to 1 week with the average being 3 days. Take the prescribed medication as directed to help control symptoms and keep yourself well-hydrated. Return to the ER should you have any further concerns Print Language: Salvadorean Disposition Disposition: Home, Self Care Discharge Date/Time: 02/25/25 00:34
[2025-02-24] MEDS: proCHLORPERazine 10 MG/2 ML Vial 5 MG IV (23:18)
[2025-02-24] MEDS: 0.9% Normal Saline (1000mL) 1,000 ML 999 ML IV (23:18)
[2025-02-24 23:20] VITALS: BMI 29.0
[2025-02-24 23:22] LABS: Absolute Lymphocyte Count 0.63 X10^3/uL (0.83-4.51); Absolute Neutrophil Count 12.5 X10^3/uL (2.0-7.7); Basophil# 0.02 X10^3/uL; Basophil% 0.1 % (0-1); Eosinophil# 0.02 X10^3/uL; Eosinophils% 0.1 % (0-5); Hematocrit 42.6 % (37-47); Hemoglobin 14.4 g/dL (12.0-15.0); Lymphocyte # 0.63 X10^3/ul (0.83-4.51); Lymphocyte % 4.6 % (19-41); Mean Corp Hgb Conc 33.8 g/dL (32-36); Mean Corpuscular Hgb 29.6 pg (27.0-32.0); Mean Corpuscular Volume 87.5 fL (81-99); Mean Platelet Vol. 8.4 fl (6.2-12.0); Monocyte# 0.53 X10^3/uL; Monocyte% 3.9 % (0-10); NRBC Flagged by Analyzer 0 % (0-5); Platelet Count 233 K/mm3 (150-450); RBC Distribution Width CV 13.2 % (11.6-14.6); RBC Distribution Width SD 42.5 fl (35.1-43.9); Red Blood Count 4.87 M/mm3 (4.2-5.4); White Blood Count 13.7 K/mm3 (4.4-11.0)
[2025-02-24 23:57] LABS: AST(SGOT) 33 U/L (<=31); Alanine Aminotransfer ALT/SGPT 28 U/L (<=34); Albumin, Serum 4.2 g/dL (3.4-4.8); Alkaline Phosphatase 75 U/L (35-104); Anion Gap 14 (5-15); BUN 22 mg/dL (4-19); BUN/Creat Ratio 25.4 RATIO (10-20); Bilirubin, Direct 0.23 mg/dL (0.00-0.30); Calcium,Total 9.2 mg/dL (7.6-11.0); Carbon Dioxide 19.8 mmol/L (21.0-32.0); Chloride 105 mmol/L (98-108); Creatinine, Serum 0.87 mg/dL (0.70-1.20); EST Glomerular Filtration Rate 73 (>60); Estimated Creatinine Clearance 56.79 ml/min (50-250); Globulin 2.7 g/dL (2.2-4.2); Glucose 161 mg/dL (70-99); Lipase 34 U/L (13-75); Magnesium 1.8 mg/dL (1.5-2.2); Potassium 4.2 mmol/L (3.3-5.1); Protein, Total 6.9 g/dL (5.9-8.4); Sodium Level 139 mmol/L (133-145); Total Bilirubin 0.49 mg/dL (0.00-1.30)
[2025-02-25] MEDS: Dicyclomine 10 MG Capsule 20 MG PO (00:32)
== END 2025-02-25 00:34 | disposition home or self-care (01) ==
PROVIDERS: Emergency Provider Emergency Medicine; PCP Family Medicine; Visit Provider Emergency Medicine
DX: R11.2 Nausea with vomiting, unspecified (principal); R19.7 Diarrhea, unspecified; R55 Syncope and collapse; I25.10 Atherosclerotic heart disease of native coronary artery without angina pectoris; E78.5 Hyperlipidemia, unspecified; I10 Essential (primary) hypertension; E86.0 Dehydration; Z79.82 Long term (current) use of aspirin; Z79.899 Other long term (current) drug therapy; J45.909 Unspecified asthma, uncomplicated; Z79.51 Long term (current) use of inhaled steroids; Z90.710 Acquired absence of both cervix and uterus
CPT/HCPCS: 80048; 80076; 83690; 83735; 85025; 93005; 96361; 96374; 99284; A4216

== ENCOUNTER 2025-03-09 08:36 | Outpatient (CLI) | payer MEDICARE, SELFPAY ==
[2025-03-09 11:30] LABS: ALB/GLOB Ratio 1.6 RATIO (0.9-2.4); AST(SGOT) 28 U/L (<=31); Alanine Aminotransfer ALT/SGPT 35 U/L (<=34); Albumin, Serum 4.2 g/dL (3.4-4.8); Alkaline Phosphatase 78 U/L (35-104); Anion Gap 10 (5-15); BUN 19 mg/dL (4-19); BUN/Creat Ratio 23.4 RATIO (10-20); Calcium,Total 9.6 mg/dL (7.6-11.0); Chloride 106 mmol/L (98-108); Cholesterol 139 mg/dL (<=200); Creatinine, Serum 0.81 mg/dL (0.70-1.20); EST Glomerular Filtration Rate 80 (>60); Globulin 2.6 g/dL (2.2-4.2); Glucose 100 mg/dL (70-99); High Density Lipoprotein 52 mg/dL; Low Density Lipoprotein Calc. 63 mg/dL; Protein, Total 6.7 g/dL (5.9-8.4); Sodium Level 140 mmol/L (133-145); Total Bilirubin 0.23 mg/dL (0.00-1.30); Triglycerides 122 mg/dL; Very Low Density Lipoprotein 24 mg/dL (5-40); cholesterol:hdl ratio screen 2.69
[2025-03-12 12:08] LABS: CHOLESTEROL TOTAL 133 mg/dL (100-199); HDL-C 56 mg/dL (>39); HDL-P TOTAL 37.6 umol/L (>=30.5); INSULIN RESISTANCE SCORE 54 (<=45); LDL SIZE 21.2 nm (>20.5); LDL-C (NIH CALC) 54 mg/dL (0-99); LDL-P 850 nmol/L (<1000); SMALL LDL-P 445 nmol/L (<=527); TRIGLYCERIDES 131 mg/dL (0-149)
== END 2025-03-09 23:59 | disposition home or self-care (01) ==
LOC: MFPLAB 08:36
PROVIDERS: PCP Family Medicine; Referring Provider Family Medicine; Visit Provider Family Medicine
DX: I25.10 Atherosclerotic heart disease of native coronary artery without angina pectoris (principal); M81.0 Age-related osteoporosis without current pathological fracture
CPT/HCPCS: 36415; 80053; 80061; 82306; 83704

== ENCOUNTER → 2025-10-21 | Outpatient (CLI) | payer MEDICARE, SELFPAY ==
--- NOTE | 2025-10-21 07:46 | BI_ITS ---
EXAM: SCRN MAMM (CAD)W/NAWAF BILAT DATE: 10/21/2025 CLINICAL HISTORY: F, Age 64 y/o , SCREENING No family history. TECHNIQUE: Procedure Code: [id number] Modality: MG Procedure: SCRN MAMM (CAD)W/NAWAF BILAT COMPARISON: Prior exam(s) dated October 20, 2024.. FINDINGS: TISSUE DENSITY: There are scattered areas of fibroglandular density. Bilateral Breast Mammographic Findings: No significant masses, calcifications or other abnormalities are identified. No suspicious masses, areas of developing architectural distortion, or suspicious calcifications. There has been no significant interval change. BI/SCRN MAMM (CAD)W/NAWAF BILAT IMPRESSION: Stable bilateral screening mammogram. OVERALL FINAL ASSESSMENT BI-RADS 1: NEGATIVE. RECOMMENDATION: Routine annual follow-up in 1 Year Additional Recommendation none A letter with findings and recommendations will be mailed to the patient. Reading Location: [facility]
--- OUTSIDE RECORDS SUMMARY | 2025-10-21 07:48 | XMS RPT_ITS | CCD ---
Author Organization [facility] Care Team Providers Care Iron Bender Name Role Phone Jo Ann Lee MD Primary Care Provider JOSIAH HALEY DO Attending Unavailable Jo Ann Lee MD Primary Care Provider Jo Ann Lee MD Primary Care Provider Dr. Jim Lee Primary Care Provider Dr. Jim Lee Referring Provider Dr. Jim Lee Other Provider Dr. Owen Doe Attending Provider Dr. Jim Lee Primary Care Provider Dr. Jim Lee Referring Provider Dr. Owen Doe Attending Provider Dr. Kortney Camacho Attending Provider Dr. Aldo Nation Attending Provider Dr. Jo Ann Lee Primary Care Provider Dr. Jo Ann Lee Referring Provider [phone] Dr. Owen Doe Attending Provider Dr. Aldo Nation Attending Provider Jo Ann Lee MD Primary Care Provider GRACIA GODOY Attending Unavailable JO ANN LEE Primary Care Unavailabl e Dr. Jo Ann eLe MD Primary Care Provider Dr. Jamal Crisostomo DO Attending Provider Dr. Jamal Crisostomo DO Emergency Provider Rosa BOONE, Dr. Lazcano Attending Provider [phone] Dr. Jo Ann Lee MD Referring Provider Jo Ann Lee Referring Unavailable Ranney, Christopher Primary Care Unavailable Ingris Mcgowan Attending Unavail able Ranney, Christopher Primary Care Unavailable Rankari, Jo Ann Attending Unavailable Rankari, Christopher Referring Unavailable Ranney, Christopher Primary Care Unavailable Rankari, Jo Ann Attending Unavailable Ranney, Christopher Primary Care Unavailable Benton, Gracia Attending Unavailable Benton, Gracia Referring Unavailable Ranney, Christopher Primary Care Unavailable Rosa, Jo Ann Attending Unavailable Ranney, Christsharoner Referring Unavailable Ranney, Christopher Primary Care Unavailable Jamal Crisostomo Attending Unavailable Jo Ann Lee MD Primary Care Provider LEX HAQ Referring Unavailable ROSA, HARLANER B Primary Care Unavailabl e LEX HAQ Attending Unavailable LEX HAQ Referring Unavailable RANKARI, CHRISTOPHER B Primary Care Unavaillori e LEX HAQ Attending Unavailable Allergies Allergy Classification Reported Allergen(s) Allergy Type Date of Onset Reaction(s) Facility (20 sources) ether; Translations: [ETHER] Allergy to substance 01-24-2007 Anaphylaxis [facility] Comment on above: Circulatory system c ollapse (7 sources) buPROPion Drug Allergy 10-10-2023 Nausea [facility] (7 sources) Lisinopril Drug Allergy 10-10-2023 cough [facility] (7 sources) Naltrexone Drug Allergy 10-10-2023 Nausea [facility] (1 source) buPROPion Drug Allergy 02-24-2025 [facility] (1 source) Lisinopril Drug Allergy 02-24-2025 [facility] (1 source) Naltrexone Drug Allergy 02-24-2025 [facility] (1 source) ether Drug allergy (disorder) 02-24-2025 [facility] Medications Current Medications Medication Drug Class(es) Dates Sig (Normalized) Sig (Original) Albuterol (20 sources) beta2-Adrenergic Agonist Start: 08-24-2017 Albuterol Sulfate (Ventolin Hfa (Sp)) 1 INHALER inhaler Active 1 - 2 NMA INHALATION EVERY 4 HOURS NEEDED as needed for Sob &/Or Wheezing August 24, 2017 12:00am Start: 08-24-2017 Albuterol Sulf ate (Ventolin Hfa (Sp)) 1 INHALER inhaler Active 1 - 2 PUFF INHALATION EVERY 4 HOURS NEEDED August 24, 2017 12:00am Start: 08-24-2017 Albuterol Sulf ate (Ventolin Hfa (Sp)) 1 INHALER inhaler Active 1 - 2 PUFF INHALATION EVERY 4 HOURS NEEDED August 23, 2017 11:00pm Start: 08-24-2017 Albuterol Sulf ate (Ventolin Hfa (Sp)) 1 INHALER inhaler Active 1 - 2 PUFF INHALATION EVERY 4 HOURS NEEDED August 23, 2017 11:00pm take 1 puff(s) by in halation every six hours as needed for wheezing albuterol 108 (90 Base) MCG/ACT Aero Soln inhaler Inhale 1 puff every 6 hours as needed for Wheezing. Active aspirin 81 mg delayed release oral tablet (20 sources) Platelet Aggregation Inhibitor, Nonsteroidal Anti-inflammatory Drug Start: 08-24-2017 take 1 tablet by mouth once daily Aspirin 81 MG tablet Active 81 mg PO DAILY@0800 August 24, 2017 12:00am Start: 05-29-2007 take 1 tablet by donya th once daily Aspirin 81 mg ORAL Tab Take one(1) tablet daily. HELD 05/10/07 0 05/29/2007 Active Comment on above: Take one(1) tablet d aily. HELD 05/10/07 Budesonide-Formoterol (5 sources) Corticosteroid, beta2-Adrenergic Agonist Start: 11-10-2024 Budesonide-Formoterol (Symbicort) 160-4.5 mcg/actuation HFA aerosol inhaler Active 1 NMA INHALATION TWICE A DAY as needed November 10, 2024 10:56am Start: 12-02-2023 End: 11-10-2024 Budesonide-Formoterol (Symbi ofelia) 160-4.5 mcg/actuation HFA aerosol inhaler Discontinued 1 NMA INHALATION TWICE A DAY December 02, 2023 1:00am November 10, 2024 10:56am Start: 12-02-2023 Budesonide-For moterol (Symbicort) 160-4.5 mcg/actuation HFA aerosol inhaler Active 1 INH INHALATION TWICE A DAY December 02, 2023 1:00am Start: 12-02-2023 Budesonide-For moterol (Symbicort) 160-4.5 mcg/actuation HFA aerosol inhaler Active 1 INH INHALATION TWICE A DAY December 02, 2023 12:00am Budesonide-Formoterol Fumara te (SYMBICORT IN) (5 sources) Budesonide-Formo terol Fumarate (SYMBICORT IN) Inhale. Active Budesonide-Formo terol Fumarate (SYMBICORT IN) Inhale. 0 Active budesonide/formoterol fumara te (SYMBICORT INHALATION) (3 sources) budesonide/formo terol fumarate (SYMBICORT INHALATION) Inhale as instructed. Active budesonide/formo terol fumarate (SYMBICORT INHALATION) Inhale as instructed. 0 Active Comment on above: Inhale as instructed . Calcium (4 sources) Phosphate Binder, Calcium Start: 01-24-2007 CALCIUM 500 MG TAB 1200 mg per day 0 01/24/2007 Active Comment on above: 1200 mg per day calcium carbonate 1500 mg oral tablet (20 sources) Start: 08-24-2017 take 1 tablet by mouth once daily Calcium Carbonate 600 MG tablet Active 600 mg PO DAILY August 24, 2017 12:00am Calcium Carbonat e (CALTRATE 600 PO) Indications: Osteopenia , Hypovitaminosis D take by mouth.. Active Calcium Carbonat e (CALTRATE 600 PO) Indications: Osteopenia , Hypovitaminosis D take by mouth.. 0 Active CENTRUM SILVER TAB (4 sources) Start: 01-24-2007 CENTRUM SILVER TAB Take one(1) tablet daily. 0 01/24/2007 Active Comment on above: Take one(1) tablet d aily. cholecalciferol 0.125 mg oral capsule (20 sources) Vitamin D Start: 08-24-2017 take 1 capsule by mouth once daily Cholecalciferol (Vitamin D3) 5,000 UNIT capsule Active 5000 U PO DAILY August 24, 2017 12:00am take 5 tablets by mo ut every other day Cholecalciferol (VITAMIN D3) 2000 UNITS PO TABS Indications: Osteopenia Take 5 tablets by mouth every other day. Active dicyclomine hydrochloride 20 mg oral tablet (1 source) Anticholinergic Start: 02-25-2025 take 1 tablet by mouth four times daily as needed for muscle spasms Dicyclomine 20 mg tablet Active 20 mg PO 4 TIMES DAILY as needed for Abdominal bloating/spasm February 25, 2025 12:23am losartan potassium 25 mg oral tablet (16 sources) Angiotensin 2 Receptor Emilia Start: 11-10-2024 take 2 tablets by mouth once daily Losartan 25 mg tablet Active 50 mg PO DAILY November 10, 2024 10:55am Start: 10-10-2023 End: 11-10-2024 take 1 tablet by mouth once daily Losartan 25 mg tablet Discontinued 25 mg PO DAILY October 10, 2023 1:00am November 10, 2024 10:56am take 4 tablets by mo [facility] once daily losartan 12.5 MG Tab tablet Indications: Osteopenia, unspecified location , Menopause , Hypovitaminosis D Take 4 tablets by mouth daily. Active take 2 tablets by mo [facility] once daily losartan (COZAAR) 25 mg tablet Take 50 mg by mouth once daily. Active take 1 tablet by donya once daily losartan (COZAAR) 25 mg tablet Take 25 mg by mouth once daily. 0 Active take 1 tablet by donya once daily losartan 12.5 MG Tab tablet Indications: Osteopenia, unspecified location , Menopause , Hypovitaminosis D Take 12.5 mg by mouth daily. 0 Active Comment on above: Take 25 mg by mouth once daily. Multiple Vitamins-Minerals (CENTRUM WOMEN PO) (5 sources) Multiple Vitamin s-Minerals (CENTRUM WOMEN PO) Indications: Osteopenia, unspecified location , Menopause , Hypovitaminosis D Take by mouth. Active Multiple Vitamin s-Minerals (CENTRUM WOMEN PO) Indications: Osteopenia, unspecified location , Menopause , Hypovitaminosis D Take by mouth. 0 Active Qdjymnom-Kiq-Oe-Lycopen-Lute in (Centrum Silver Tablet) 1 EACH tablet (15 sources) Start: 08-24-2017 Wjupwjwc-Ioc-Wm-Lycopen-Lute in (Centrum Silver Tablet) 1 EACH tablet Active 1 NMA PO DAILY August 24, 2017 12:00am Start: 08-24-2017 Llilzush-Uer-Y e-Ysrqrbg-Prlhzg (Centrum Silver Tablet) 1 EACH tablet Active 1 EACH PO DAILY August 23, 2017 11:00pm Start: 08-24-2017 Mdlfmxtm-Dnv-C e-Bnqcvks-Yskptq (Centrum Silver Tablet) 1 EACH tablet Active 1 EACH PO DAILY August 24, 2017 12:00am OMEGA 3 550 MG CAP (4 sources) Start: 01-24-2007 OMEGA 3 550 MG CAP Take one(1) capsule daily. 0 01/24/2007 Active Comment on above: Take one(1) capsule daily. Liberty-3 Fatty Acids (FISH OIL PO) (5 sources) Liberty-3 Fatty Ac ids (FISH OIL PO) Indications: Osteopenia Active Liberty-3 Fatty Ac ids (FISH OIL PO) prochlorperazine 10 mg oral tablet (1 source) Phenothiazine Start: 02-25-2025 take 1 tablet by mouth three times daily as needed for nausea and vomiting Prochlorperazine Maleate (Compazine) 10 mg tablet Active 10 mg PO THREE TIMES A DAY as needed for nausea and vomiting February 25, 2025 12:00am risedronate sodium 35 mg oral tablet (2 sources) Start: 01-24-2007 End: 09-04-2023 take 1 tablet by mouth every week in the morning ACTONEL 35 MG TAB Take once per week in the morning with a full glass of water, on an empty stomach, and do not take anything else by mouth or lie down for the next 30 minutes. 0 01/24/2007 09/04/2023 Discontinued Comment on above: Take once per week i n the morning with a full glass of water, on an empty stomach, and do not take anything else by mouth or lie down for the next 30 minutes. rosuvastatin calcium 10 mg oral tablet (15 sources) HMG-CoA Reductase Inhibitor Start: 10-10-2023 take 20 mg by mouth once daily Rosuvastatin Active 20 MG PO DAILY October 10, 2023 1:00am Start: 04-03-2022 take 2 tablets by mo uth once daily rosuvastatin 10 MG tablet Take 2 tablets by mouth daily. 04/03/2022 Active Start: 04-03-2022 take 1 tablet by donya th once daily rosuvastatin 10 MG tablet Take 10 mg by mouth daily. 0 04/03/2022 Active Comment on above: Take 10 mg by mouth once daily. Completed/Discontinued Medications Medication Drug Class(es) Dates Sig (Normalized) Sig (Original) acetaminophen 325 mg / HYDROcodone bitartrate 5 mg oral tablet (20 sources) Opioid Agonist Start: 08-29-2017 End: 10-10-2023 Hydrocodone-Acetami nophen 5-325 mg tablet Discontinued 1 {tbl} PO EVERY 6 HOURS NEEDED as needed for Pain 08 07November 01, 2022 October 10, 2023 10:05am Start: 08-29-2017 End: 10-10-2023 take 1 tablet by mouth every six hours as needed Hydrocodone-Acetaminophen Discontinued 1 TABLET PO EVERY 6 HOURS NEEDED 08 07November 01, 2022 October 10, 2023 10:05am fluticasone (15 sources) Corticosteroid Start: 08-24-2017 End: 12-02-2023 Fluticasone Propionate (Flov ent Hfa) 12 GM HFA aerosol inhaler Discontinued 1 NMA IH NEEDED as needed for Sob &/Or Wheezing August 24, 2017 12:00am December 02, 2023 7:36am Start: 08-24-2017 End: 12-02-2023 Fluticasone Propionate (Flov ent Hfa) 12 GM HFA aerosol inhaler Discontinued 1 PUFF IH NEEDED August 24, 2017 12:00am December 02, 2023 7:36am Start: 08-24-2017 End: 12-02-2023 Fluticasone Propionate (Flov ent Hfa) 12 GM HFA aerosol inhaler Discontinued 1 PUFF IH NEEDED August 23, 2017 11:00pm December 02, 2023 6:36am Start: 08-24-2017 Fluticasone Pr opionate (Flovent Hfa) 12 GM HFA aerosol inhaler Active 1 PUFF IH NEEDED August 23, 2017 11:00pm 24 hr lorcaserin hydrochloride 20 mg extended release oral tablet (15 sources) Serotonin-2c Receptor Agonist Start: 08-24-2017 End: 10-10-2023 take 1 tablet by mouth once daily Lorcaserin (Belviq Xr) 20 MG tablet extended release 24 hr Discontinued 20 mg PO DAILY August 24, 2017 12:00am October 10, 2023 10:05am Liberty-3 Fatty Acids-Fish Oil (Fish Oil 1,000 Mg Capsule) 1 EACH capsule (15 sources) Start: 08-24-2017 End: 11-10-2024 Liberty-3 Fatty Acids-Fish Oil (Fish Oil 1,000 Mg Capsule) 1 EACH capsule Discontinued 1 NMA PO DAILY August 24, 2017 12:00am November 10, 2024 10:56am Start: 08-24-2017 Liberty-3 Fatty Acids-Fish Oil (Fish Oil 1,000 Mg Capsule) 1 EACH capsule Active 1 EACH PO DAILY August 23, 2017 11:00pm Start: 08-24-2017 Liberty-3 Fatty Acids-Fish Oil (Fish Oil 1,000 Mg Capsule) 1 EACH capsule Active 1 EACH PO DAILY August 24, 2017 12:00am ubidecarenone 100 mg oral capsule (9 sources) Start: 10-10-2023 End: 11-10-2024 take 10 capsules by mouth once daily Coenzyme Q10 100 mg capsule Discontinued 100 mg PO DAILY October 10, 2023 1:00am November 10, 2024 10:56am coenzyme Q10 (CO Q-10) 100 mg cap capsule Take 100 mg by mouth two times a day. Active Problems Active Problems Problem Classification Problem Date Documented Da te Episodic/Chronic Abdominal hernia (5 sources) Hiatal hernia; Translations: [Diaphragmatic hernia without obstruction or gangrene] 11-07-2023 Episodic Coronary atherosclerosis and other heart disease (12 sources) Coronary atherosclerosis; Translations: [Atherosclerotic heart disease of havasupai coronary artery without angina pectoris] Onset: 03-11-2025 10-10-2023 Chronic Disorders of lipid metabolism (12 sources) Hyperlipidemia; Translations: [Hyperlipidemia, unspecified] Onset: 11-18-2024 10-10-2023 Chronic E Codes: Fall (12 sources) Fall; Translations: [Unspecified fall, initial encounter] 11-09-2022 Episodic Essential hypertension (16 sources) Essential hypertension; Translations: [Essential (primary) hypertension] Onset: 05-29-2007 05-29-2007 Chronic Fluid and electrolyte disorders (1 source) Mild dehydration; Translations: [Dehydration] 03-05-2025 Episodic Immunizations and screening for infectious disease (1 source) Requires influenza virus vaccination; Translations: [Encounter for immunization] 07-15-2025 Episodic Joint disorders and dislocations; trauma-related (20 sources) Dislocation of digit of hand; Translations: [Unspecified dislocation of unspecified finger, initial encounter] 08-06-2013 Episodic Nausea and vomiting (2 sources) Nausea, vomiting and diarrhea; Translations: [Nausea with vomiting, unspecified] Onset: 03-02-2025 03-05-2025 Episodic Nutritional deficiencies (2 sources) Vitamin D deficiency; Translations: [Vitamin D deficiency, unspecified] Chronic Other screening for suspected conditions (not mental disorders or infectious disease) (8 sources) Patient encounter status; Translations: [Encounter for screening mammogram for malignant neoplasm of breast] Onset: 11-20-2024 09-04-2023 Episodic Other upper respiratory infections (8 sources) Acute laryngitis; Translations: [Acute laryngitis] 12-02-2023 Episodic Residual codes; unclassified (5 sources) Menopause present; Translations: [Asymptomatic menopausal state] Episodic Residual codes; unclassified (2 sources) Asymptomatic menopausal state; Translations: [Asymptomatic menopausal state] Onset: 07-15-2025 Episodic Past or Other Problems Problem Classification Problem Date Documented Da te Episodic/Chronic Other bone disease and musculoskeletal deformities (9 sources) Osteopenia; Translations: [Other specified disorders of bone density and structure, unspecified site] Onset: 04-28-2013 Episodic Other diseases of kidney and ureters (4 sources) Acquired renal cystic disease; Translations: [Cyst of kidney, acquired] Onset: 05-29-2007 05-29-2007 Episodic Unclassified (1 source) Patient encounter status 07-15-2025 Results Test Name Value Interpretation Reference Range Facility BONE DENSITY AXIAL (HIP, PEL VIS, SPINE)on 07-15-2025 BONE DENSITY AXIAL (HIP, PELVIS, SPINE) EXAM: BONE DENSITY AXIAL (HIP, PELVIS, SPINE) 07/15/2025 13:13 PM TECHNIQUE: DXA scanning using a Jelli Advance bone densitometer at the [facility] was performed on 07/15/2025 13:13 PM CLINICAL INDICATIONS: senile osteoporosis, menopause RELEVANT CLINICAL HISTORY: Z78.0:Menopause Z13.820:Screening for osteoporosis COMPARISON: Today's examination is compared to the technically similar prior study dated July 04, 2023 FINDINGS: 1. Quality of the examination at the L1-3 lumbar spine: Adequate. L4 will be excluded from evaluation in keeping with the prior exam. 2. Quality of the examination at the dual hip: Adequate. BONE MINERAL DENSITY (BMD) CURRENT BONE MINERAL DENSITY (BMD) Region: g/cm2 T-Score Lumbar 1-3 Spine: 1.093 -0.6 Left Femoral Neck: 0.762 -2.0 Left Total Hip: 0.815 -1.5 Right Femoral Neck: 0.779 -1.9 Right Total Hip: 0.776 -1.8 COMPARISON WITH PREVIOUS EXAMS ON: July 04, 2023 Body Region: Prev BMD Current BMD Change (g/cm2) (g/cm2) (%) Lumbar 1-3 Spine: 1.116, 1.093, -2.1% Left Total Hip: 0.829, 0.815, -1.7% Right Total Hip: 0.799, 0.776, -2.9% IMPRESSION: Based on BMD and WHO criteria diagnosis is consistent with osteopenia. Today's examination is compared to the technically similar prior study dated July 04, 2023 In the interim there has been no significant change. * The T-score reflects standard deviations above (+) or below (-) a 20-40 year-old, , female, [place] population. At this age, it is assumed that peak bone mass is reached. * The Z-score reflects standard deviations above (+) or below (-) an age, sex, ethnicity, and weight-matched population. * Osteoporosis is defined as a skeletal disorder characterized by compromised bone strength predisposing to an increased risk of fracture. Bone strength reflects the integration of two main features: BMD and bone quality (MISTI 2001;285:785-795). Any history of fragility fracture is suggestive of osteoporosis, regardless of the BMD data acquired in this study. * Secondary causes of bone loss should be evaluated if clinically indicated as the etiology of low BMD cannot be determined by BMD measurement alone. FRAX is an available clinical tool developed to evaluate fracture risk in patients using individualized clinical risk factors. The online calculator can be accessed at the following link: https://frax.shef.ac.uk/FRA X/ The physician who interpreted this study is a Certified Clinical Tailman by the International Society of Clinical Densitometry Stanley Erazo DO, CCD. Normal [facility] DXA Skeletal system.axial Vi ews for bone densityon 07-15-2025 IMPRESSION: Based on BMD and WHO criteria diagnosis is consistent with osteopenia. Today's examination is compared to the technically similar prior study dated July 04, 2023 In the interim there has been no significant change. * The T-score reflects standard deviations above (+) or below (-) a 20-40 year-old, , female, [place] population. At this age, it is assumed that peak bone mass is reached. * The Z-score reflects standard deviations above (+) or below (-) an age, sex, ethnicity, and weight-matched population. * Osteoporosis is defined as a skeletal disorder characterized by compromised bone strength predisposing to an increased risk of fracture. Bone strength reflects the integration of two main features: BMD and bone quality (MISTI 2001;285:785-795). Any history of fragility fracture is suggestive of osteoporosis, regardless of the BMD data acquired in this study. * Secondary causes of bone loss should be evaluated if clinically indicated as the etiology of low BMD cannot be determined by BMD measurement alone. FRAX is an available clinical tool developed to evaluate fracture risk in patients using individualized clinical risk factors. The online calculator can be accessed at the following link: https://frax.shef.ac.uk/FRA X/ The physician who interpreted this study is a Certified Clinical Tailman by the International Society of Clinical Densitometry Stanley Erazo DO, CCD. OLOGY EXAM: BONE DENSITY A XIAL (HIP, PELVIS, SPINE) 07/15/2025 13:13 PM TECHNIQUE: DXA scanning using a Jelli Advance bone densitometer at the [facility] was performed on 07/15/2025 13:13 PM CLINICAL INDICATIONS: senile osteoporosis, menopause RELEVANT CLINICAL HISTORY: Z78.0:Menopause Z13.820:Screening for osteoporosis COMPARISON: Today's examination is compared to the technically similar prior study dated July 04, 2023 FINDINGS: 1. Quality of the examination at the L1-3 lumbar spine: Adequate. L4 will be excluded from evaluation in keeping with the prior exam. 2. Quality of the examination at the dual hip: Adequate. BONE MINERAL DENSITY (BMD) CURRENT BONE MINERAL DENSITY (BMD) Region: g/cm2 T-Score Lumbar 1-3 Spine: 1.093 -0.6 Left Femoral Neck: 0.762 -2.0 Left Total Hip: 0.815 -1.5 Right Femoral Neck: 0.779 -1.9 Right Total Hip: 0.776 -1.8 COMPARISON WITH PREVIOUS EXAMS ON: July 04, 2023 Body Region: Prev BMD Current BMD Change (g/cm2) (g/cm2) (%) Lumbar 1-3 Spine: 1.116, 1.093, -2.1% Left Total Hip: 0.829, 0.815, -1.7% Right Total Hip: 0.799, 0.776, -2.9% RADIOLOGY Stanley Erazo DO - 07/15/2025 EXAM: BONE DENSITY AXIAL (HIP, PELVIS, SPINE) 07/15/2025 13:13 PM TECHNIQUE: DXA scanning using a Jelli Advance bone densitometer at the [facility] was performed on 07/15/2025 13:13 PM CLINICAL INDICATIONS: senile osteoporosis, menopause RELEVANT CLINICAL HISTORY: Z78.0:Menopause Z13.820:Screening for osteoporosis COMPARISON: Today's examination is compared to the technically similar prior study dated July 04, 2023 FINDINGS: 1. Quality of the examination at the L1-3 lumbar spine: Adequate. L4 will be excluded from evaluation in keeping with the prior exam. 2. Quality of the examination at the dual hip: Adequate. BONE MINERAL DENSITY (BMD) CURRENT BONE MINERAL DENSITY (BMD) Region: g/cm2 T-Score Lumbar 1-3 Spine: 1.093 -0.6 Left Femoral Neck: 0.762 -2.0 Left Total Hip: 0.815 -1.5 Right Femoral Neck: 0.779 -1.9 Right Total Hip: 0.776 -1.8 COMPARISON WITH PREVIOUS EXAMS ON: July 04, 2023 Body Region: Prev BMD Current BMD Change (g/cm2) (g/cm2) (%) Lumbar 1-3 Spine: 1.116, 1.093, -2.1% Left Total Hip: 0.829, 0.815, -1.7% Right Total Hip: 0.799, 0.776, -2.9% IMPRESSION IMPRESSION: Based on BMD and WHO criteria diagnosis is consistent with osteopenia. Today's examination is compared to the technically similar prior study dated July 04, 2023 In the interim there has been no significant change. * The T-score reflects standard deviations above (+) or below (-) a 20-40 year-old, , female, [place] population. At this age, it is assumed that peak bone mass is reached. * The Z-score reflects standard deviations above (+) or below (-) an age, sex, ethnicity, and weight-matched population. * Osteoporosis is defined as a skeletal disorder characterized by compromised bone strength predisposing to an increased risk of fracture. Bone strength reflects the integration of two main features: BMD and bone quality (MISTI 2001;285:785-795). Any history of fragility fracture is suggestive of osteoporosis, regardless of the BMD data acquired in this study. * Secondary causes of bone loss should be evaluated if clinically indicated as the etiology of low BMD cannot be determined by BMD measurement alone. FRAX is an available clinical tool developed to evaluate fracture risk in patients using individualized clinical risk factors. The online calculator can be accessed at the following link: https://frax.shef.ac.uk/FRA X/ The physician who interpreted this study is a Certified Clinical Tailman by the International Society of Clinical Densitometry Stanley Erazo DO, CCD. [facility] Radiology Study observation (narrative) [facility] DXA Skeletal system.axial Vi ews for bone densityOrdered By: Stanley Erazo on 07-15-2025 [facility] Work Phone: [facility] Lipoprofileon 03-12-2025 Cholesterol [Mass/Vol] 133 mg/dL Normal 100-199 [facility] Comment on above: Order Comment: Test( s) [id number]; [id number]-K; [id number];[id number], Total; [id number] (Total); [id number]-Grmru LDL-P; [id number]-OXF Size; [id number] Scorewas developed and its performance characteristicsdetermined by [employer]. It has not been cleared or approvedby the Food and Drug Administration. Performed By: #### L [id number] ####[facility] [id number] [place], [address] Cholesterol in HDL [Mass/Vol] 56 mg/dL Normal >39 [facility] Comment on above: Order Comment: Test( s) 166566-HQM-A; 337163-XDU-T; 945738-Trioxjamqgvuf;507527-Rcqshyxanyd, Total; 436263-CPM-Z (Total); 818687-Bqbbg LDL-P; 137592-IWK Size; 963191-FS-QF Scorewas developed and its performance characteristicsdetermined by [employer]. It has not been cleared or approvedby the Food and Drug Administration. Performed By: #### L 3500.0000 ####[facility] [address] [place], [address] Cholesterol in LDL [Mass/Vol] 54 mg/dL Normal 0-99 [facility] Comment on above: Order Comment: Test( s) [id number]-NZQ-Y; 580078-YDZ-V; 995740-Musekuijxcmbs;119608-Bkuzaggalxz, Total; 634611-AIX-M (Total); 221003-Hgtpn LDL-P; 546418-XEM Size; 246751-CJ-PP Scorewas developed and its performance characteristicsdetermined by [employer]. It has not been cleared or approvedby the Food and Drug Administration. Result Comment: Opti mal < 100 Above optimal 100 - 129 Borderline 130 - 159 High 160 - 189 Very high > 189 Performed By: #### L 3500.0000 ####[facility] [address] [place], [address] HDL-P TOTAL 37.6 umol/L Normal >=30.5 [facility] Comment on above: Order Comment: Test( s) 360361-WRK-C; 920369-RVR-U; 747519-Zghkfvmzryfsu;202563-Rvdbpoiwlbd, Total; 044051-OKB-P (Total); 146526-Gxlju LDL-P; 260628-VFG Size; 039139-ZH-XY Scorewas developed and its performance characteristicsdetermined by [employer]. It has not been cleared or approvedby the Food and Drug Administration. Performed By: #### L 3500.0000 ####[facility] [address] [place], [address] INS. RES. SCORE 54 Abnormal <=45 [facility] Comment on above: Order Comment: Test( s) 612372-CJD-D; 063700-AUY-Z; 829405-Hryezxtztiamu;246832-Zdvyrfzacbl, Total; 928420-BJO-L (Total); 386377-Kphpq LDL-P; 608595-HSX Size; 231045-IP-KF Scorewas developed and its performance characteristicsdetermined by [employer]. It has not been cleared or approvedby the Food and Drug Administration. Result Comment: INSU WILLIS RESISTANCE MARKER <--Insulin Sensitive Insulin Resistant--> Percentile in Reference Population Insulin Resistance Score LP-IR Score Low 25th 50th 75th High <27 27 45 63 >63 LP-IR Score is inaccurate if patient is non-fasting. The LP-IR score is a laboratory developed index that has been associated with insulin resistance and diabetes risk and should be used as one component of a physician's clinical assessment. Performed at: [address] [id number] Conference Services Manager: Poonam Garcia MD, Phone: [phone] Performed By: #### L 3500.0000 ####[facility] [address] [facility] [place], [address] LDL SIZE 21.2 nm Normal >20.5 [facility] Comment on above: Order Comment: Test( s) [id number]-OZK-S; 582838-VVI-V; 767376-Irhqbtunqvlno;485470-Gdpxtzlrbgr, Total; 490990-IOK-D (Total); 268331-Sipke LDL-P; 775449-HWM Size; 423634-SQ-LC Scorewas developed and its performance characteristicsdetermined by [employer]. It has not been cleared or approvedby the Food and Drug Administration. Result Comment: INTERPRETATIVE INFORMATION PARTICLE CONCENTRATION AND SIZE <--Lower CVD Risk Higher CVD Risk--> LDL AND HDL PARTICLES Percentile in Reference Population HDL-P (total) High 75th 50th 25th Low >34.9 34.9 30.5 26.7 <26.7 Small LDL-P Low 25th 50th 75th High <117 117 527 839 >839 LDL Size <-Large (Pattern A)-> <-Small (Pattern B)-> 23.0 20.6 20.5 19.0 Small LDL-P and LDL Size are associated with CVD risk, but not after LDL-P is taken into account. Performed By: #### L 3500.0000 ####[facility] [address] [facility] [place], [address] LDL-P 850 nmol/L Normal <1000 [facility] Comment on above: Order Comment: Test( s) 005194-WBR-E; 038805-KZJ-U; 675047-Lqlrgoigdeegs;431504-Mvrurehogiz, Total; 880791-QYJ-D (Total); 391296-Bqgns LDL-P; 777016-AAG Size; 966659-VO-MG Scorewas developed and its performance characteristicsdetermined by [employer]. It has not been cleared or approvedby the Food and Drug Administration. Result Comment: Low < 1000 Moderate 1000 - 1299 Borderline-High 1300 - 1599 High 1600 - 2000 Very High > 2000 Performed By: #### L 3500.0000 ####[facility] [address] [facility] [place], [place], [id number] SMALL LDL-P 445 nmol/L Normal <=527 [facility] Comment on above: Order Comment: Test( s) 567872-NMM-Y; 835755-GVS-A; 041744-Vkdlmvnwhsbsz;335083-Mltlzgdkkbz, Total; 475736-LPN-M (Total); 228460-Zzejw LDL-P; 920995-OOD Size; 053598-EM-ZK Scorewas developed and its performance characteristicsdetermined by [employer]. It has not been cleared or approvedby the Food and Drug Administration. Performed By: #### L 3500.0000 ####[facility] [address] [place], [place], [address] Triglyceride [Mass/Vol] 131 mg/dL Normal 0-149 [facility] Comment on above: Order Comment: Test( s) 989341-WBS-R; 446720-NQQ-Z; 474607-Uuasackkvuedk;334502-Xzuoklxojgz, Total; 472429-IGB-M (Total); 745071-Mtrpf LDL-P; 129432-DAJ Size; 620526-KZ-FW Scorewas developed and its performance characteristicsdetermined by [employer]. It has not been cleared or approvedby the Food and Drug Administration. Performed By: #### L 3500.0000 ####[facility] [address] [place], [place], [id number] Anion gap in Serum or Plasma Ordered By: Jo Ann Lee on 03-09-2025 Anion gap [Moles/Vol] 10 mmol/L 5-15 [facility] BUN/creatinine ratioOrdered By: Jo Ann Lee on 03-09-2025 Urea nitrogen/Creatinine [Mass ratio] 23.4 mg/mg High 10-20 [facility] Bilirubin, totalOrdered By: Jo Ann Lee on 03-09-2025 Bilirubin [Mass/Vol] 0.23 mg/dL 0.00-1.30 [facility] Calculated very low density lipoprotein (VLDL) cholesterol measurementOrdered By: Jo Ann Lee on 03-09-2025 Calculated very low density lipoprotein (VLDL) cholesterol measurement 24 mg/dL 5-40 [facility] Carbon dioxide, total [Moles /volume] in Central venous bloodOrdered By: Jo Ann Lee on 03-09-2025 CO2 [Moles/Vol] 24.0 mmol/L 21.0-32.0 [facility] Chloride assayOrdered By: Prieto Lee on 03-09-2025 Chloride [Moles/Vol] 106 mmol/L 98-108 [facility] Comprehensive Metabolic Prof ilon 03-09-2025 Albumin [Mass/Vol] 4.2 g/dL Normal 3.4-4.8 [facility] Comment on above: Order Comment: Order Date: 03/09/25 Order Info: 0786-1 - CMP Order Info: [id number] - LIPID Performed By: #### L 500.4050, L500.4100 #### [facility] [address] [place], [address] Albumin/Globulin [Mass ratio] 1.6 {ratio} Normal 0.9-2.4 [facility] Comment on above: Order Comment: Order Date: 03/09/25 Order Info: 0786-1 - CMP Order Info: [id number] - LIPID Performed By: #### L 500.4050, L500.4100 #### [facility] [address] [place], [address] ALK PHOS 78 U/L Normal 35-104 [facility] Comment on above: Order Comment: Order Date: 03/09/25 Order Info: 0786-1 - CMP Order Info: [id number] - LIPID Performed By: #### L 500.4050, L500.4100 #### [facility] [address] [place], [address] ALT [Catalytic activity/Vol] 35 U/L Normal <=34 [facility] Comment on above: Order Comment: Order Date: 03/09/25 Order Info: 0786-1 - CMP Order Info: [id number] - LIPID Performed By: #### L 500.4050, L500.4100 #### [facility] [address] [place], [address] AST [Catalytic activity/Vol] 28 U/L Normal <=31 [facility] Comment on above: Order Comment: Order Date: 03/09/25 Order Info: 0786-1 - CMP Order Info: [id number] - LIPID Performed By: #### L 500.4050, L500.4100 #### [facility] [address] [place], [address] Bilirubin [Mass/Vol] 0.23 mg/dL Normal 0.00-1.30 [facility] Comment on above: Order Comment: Order Date: 03/09/25 Order Info: 0786-1 - CMP Order Info: [id number] - LIPID Performed By: #### L 500.4050, L500.4100 #### [facility] [address] [place], [address] BUN/CRE 23.4 RATIO High 10-20 [facility] Comment on above: Order Comment: Order Date: 03/09/25 Order Info: 0786-1 - CMP Order Info: [id number] - LIPID Performed By: #### L 500.4050, L500.4100 #### [facility] [address] [place], [address] Calcium [Mass/Vol] 9.6 mg/dL Normal 7.6-11.0 [facility] Comment on above: Order Comment: Order Date: 03/09/25 Order Info: 0786-1 - CMP Order Info: [id number] - LIPID Performed By: #### L 500.4050, L500.4100 #### [facility] [address] [place], [address] Chloride [Moles/Vol] 106 mmol/L Normal 98-108 [facility] Comment on above: Order Comment: Order Date: 03/09/25 Order Info: 0786-1 - CMP Order Info: [id number] - LIPID Performed By: #### L 500.4050, L500.4100 #### [facility] [address] [place], [address] CO2 [Moles/Vol] 24.0 mmol/L Normal 21.0-32.0 [facility] Comment on above: Order Comment: Order Date: 03/09/25 Order Info: 0786-1 - CMP Order Info: [id number] - LIPID Performed By: #### L 500.4050, L500.4100 #### [facility] [address] [place], [address] Creatinine [Mass/Vol] 0.81 mg/dL Normal 0.70-1.20 [facility] Comment on above: Order Comment: Order Date: 03/09/25 Order Info: 0786-1 - CMP Order Info: [id number] - LIPID Performed By: #### L 500.4050, L500.4100 #### [facility] [address] [place], [address] GAP 10 Normal 5-15 [facility] Comment on above: Order Comment: Order Date: 03/09/25 Order Info: 0786-1 - CMP Order Info: [id number] - LIPID Performed By: #### L 500.4050, L500.4100 #### [facility] [address] [place], [address] GFR/1.73 sq M.predicted among non-blacks MDRD (S/P/Bld) [Vol rate/Area] 80 mL/min/{1.73_m2} Normal >60 [facility] Comment on above: Order Comment: Order Date: 03/09/25 Order Info: 0786-1 - CMP Order Info: [id number] - LIPID Result Comment: mL/m in/1.73m2 CKD-EPI Creatinine Equation (2020) Performed By: #### L 500.4050, L500.4100 #### [facility] [address] [place], [address] Globulin (S) [Mass/Vol] 2.6 g/dL Normal 2.2-4.2 [facility] Comment on above: Order Comment: Order Date: 03/09/25 Order Info: 0786-1 - CMP Order Info: [id number] - LIPID Performed By: #### L 500.4050, L500.4100 #### [facility] [address] [place], [address] Glucose [Mass/Vol] 100 mg/dL High 70-99 [facility] Comment on above: Order Comment: Order Date: 03/09/25 Order Info: 0786-1 - CMP Order Info: [id number] - LIPID Performed By: #### L 500.4050, L500.4100 #### [facility] [address] [place], [address] Potassium [Moles/Vol] 4.0 mmol/L Normal 3.3-5.1 [facility] Comment on above: Order Comment: Order Date: 03/09/25 Order Info: 0786-1 - CMP Order Info: [id number] - LIPID Performed By: #### L 500.4050, L500.4100 #### [facility] [address] [place], [address] Sodium [Moles/Vol] 140 mmol/L Normal 133-145 [facility] Comment on above: Order Comment: Order Date: 03/09/25 Order Info: 0786-1 - CMP Order Info: [id number] - LIPID Performed By: #### L 500.4050, L500.4100 #### [facility] [address] [place], [address] T PROT 6.7 g/dL Normal 5.9-8.4 [facility] Comment on above: Order Comment: Order Date: 03/09/25 Order Info: 0786-1 - CMP Order Info: [id number] - LIPID Performed By: #### L 500.4050, L500.4100 #### [facility] [address] [place], [address] Urea nitrogen [Mass/Vol] 19 mg/dL Normal 4-19 [facility] Comment on above: Order Comment: Order Date: 03/09/25 Order Info: 0786-1 - CMP Order Info: [id number] - LIPID Performed By: #### L 500.4050, L500.4100 #### [facility] [address] [place], [address] Glomerular filtration rate ( GFR) estimation/1.73 sq m using serum, plasma, or whole bOrdered By: Jo Ann Lee on 03-09-2025 GFR/1.73 sq M.predicted among non-blacks MDRD (S/P/Bld) [Vol rate/Area] 80 mL/min/{1.73_m2} >60 [facility] Comment on above: mL/min/1.73m2 CKD-EP I Creatinine Equation (2020) LDL calc ser/plasOrdered By: Jo Ann Lee on 03-09-2025 Cholesterol in LDL [Mass/Vol] 63 mg/dL [facility] Comment on above: Frayvmxjsy=751-253 m g/dL & Higher Umjr=127 mg/dL or greater Laboratory - Chemistry and C hemistry - challengeOrdered By: Jo Ann Lee on 03-09-2025 AST [Catalytic activity/Vol] 28 U/L <32 [facility] Lipid Profileon 03-09-2025 CHOL:HDL 2.69 Normal [facility] Comment on above: Order Comment: Order Date: 03/09/25Order Info: 0786-1 - CMPOrder Info: [id number] - LIPID Performed By: #### L 500.4050, L500.4100 ####[facility] [address] [place], [address] Cholesterol [Mass/Vol] 139 mg/dL Normal <=200 [facility] Comment on above: Order Comment: Order Date: 03/09/25Order Info: 0786-1 - CMPOrder Info: [id number] - LIPID Result Comment: Chol esterol level, Desirable <200 mg/dL Borderline high cholesterol 200-239 mg/dL High cholesterol >=240 mg/dL Recommendations of the NCEP Adult Treatment Panel for the following risk-cutoff thresholds for the [place] population. Performed By: #### L 500.4050, L500.4100 ####[facility] [address] [place], [address] Cholesterol in HDL [Mass/Vol] 52 mg/dL Normal [facility] Comment on above: Order Comment: Order Date: 03/09/25Order Info: 0786-1 - CMPOrder Info: [id number] - LIPID Result Comment: Nisha onal Cholesterol Education Program (NCEP) guidelines: <40 mg/dL: Low HDL-cholesterol (major risk factor for CHD) >= 60 mg/dL: High HDL-cholesterol (negative risk factor for CHD) HDL-cholesterol is affected by a number of factors, e.g. smoking, exercise, hormones, sex and age. Performed By: #### L 500.4050, L500.4100 ####[facility] [address] [place], [address] Cholesterol in LDL [Mass/Vol] 63 mg/dL Normal [facility] Comment on above: Order Comment: Order Date: 03/09/25Order Info: 0786- - CMPOrder Info: [id number] - LIPID Result Comment: Bord aonpkq=840-696 mg/dL Higher Hyuq=634 mg/dL or greater Performed By: #### L 500.4050, L500.4100 ####[facility] [address] [place], [address] Cholesterol in VLDL [Mass/Vol] 24 mg/dL Normal 5-40 [facility] Comment on above: Order Comment: Order Date: 03/09/25Order Info: 0786-1 - CMPOrder Info: [id number] - LIPID Performed By: #### L 500.4050, L500.4100 ####[facility] [address] [place], [address] Triglyceride [Mass/Vol] 122 mg/dL Normal [facility] Comment on above: Order Comment: Order Date: 03/09/25Order Info: 0786-1 - CMPOrder Info: [id number] - LIPID Result Comment: The drugs N-Acetylcysteine and Metamizole may falsely depress this assay. Normal range: <150 mg/dL Borderline High: 150-199 mg/dL High: 200-499 mg/dL Very High: >500 mg/dL Performed By: #### L 500.4050, L500.4100 ####[facility] [address] [place], [address] Potassium measurement (mass/ volume)Ordered By: Jo Ann Lee on 03-09-2025 Potassium (Unsp spec) [Mass/Vol] 4.0 mmol/L 3.3-5.1 [facility] Screening total cholesterol/ high density lipoprotein (HDL) cholesterol ratioOrdered By: Jo Ann Lee on 03-09-2025 Cholesterol.total/Chol esterol in HDL [Mass ratio] 2.69 {ratio} [facility] Serum creatinine measurement (mass/volume)Ordered By: Jo Ann Lee on 03-09-2025 Creatinine [Mass/Vol] 0.81 mg/dL 0.70-1.20 [facility] Serum globulin measurementOr dered By: Jo Ann Lee on 03-09-2025 Globulin (S) [Mass/Vol] 2.6 g/dL 2.2-4.2 [facility] Serum glucose measurement (m ass/volume)Ordered By: Jo Ann Lee on 03-09-2025 Glucose [Mass/Vol] 100 mg/dL High 70-99 [facility] Serum or plasma alanine banks otransferase (ALT) measurementOrdered By: Jo Ann Lee on 03-09-2025 ALT [Catalytic activity/Vol] 35 U/L <35 [facility] Serum or plasma albumin tomi urement (mass/volume)Ordered By: Jo Ann Lee on 03-09-2025 Albumin [Mass/Vol] 4.2 g/dL 3.4-4.8 [facility] Serum or plasma albumin/glob ulin mass ratioOrdered By: Jo Ann Lee on 03-09-2025 Albumin/Globulin [Mass ratio] 1.6 {ratio} 0.9-2.4 [facility] Serum or plasma alkaline scott sphatase measurementOrdered By: Jo Ann Lee on 03-09-2025 ALP [Catalytic activity/Vol] 78 U/L 35-104 [facility] Serum or plasma calcium tomi urement (mass/volume)Ordered By: Jo Ann Lee on 03-09-2025 Calcium [Mass/Vol] 9.6 mg/dL 7.6-11.0 [facility] Serum or plasma cholesterol in HDL measurement (mass/volume)Ordered By: Jo Ann Lee on 03-09-2025 Cholesterol in HDL [Mass/Vol] 52 mg/dL >40 [facility] Comment on above: National Cholesterol Education Program (NCEP) guidelines:<40 mg/dL: Low HDL-cholesterol (major risk factor for CHD)>= 60 mg/dL: High HDL-cholesterol (negative risk factor for CHD)HDL-cholesterol is affected by a number of factors, e.g. smoking, exercise, hormones, sex and age. Serum or plasma cholesterol measurement (mass/volume)Ordered By: Jo Ann Lee on 03-09-2025 Cholesterol [Mass/Vol] 139 mg/dL <201 [facility] Comment on above: Cholesterol level, D esirable <200 mg/dLBorderline high cholesterol 200-239 mg/dLHigh cholesterol >=240 mg/dLRecommendations of the NCEP Adult Treatment Panel for the following risk-cutoff thresholds for the [place] population. Serum or plasma urea nitroge n measurement (mass/volume)Ordered By: Jo Ann Lee on 03-09-2025 Urea nitrogen [Mass/Vol] 19 mg/dL 4-19 [facility] Sodium levelOrdered By: Aruna Lee on 03-09-2025 Sodium [Moles/Vol] 140 mmol/L 133-145 [facility] Total proteinOrdered By: Neda seotopher Lee on 03-09-2025 Protein [Mass/Vol] 6.7 g/dL 5.9-8.4 [facility] Triglycerides measurementOrd ered By: Jo Ann Lee on 03-09-2025 Triglyceride [Mass/Vol] 122 mg/dL <199 [facility] Comment on above: The drugs N-Acetylcy steine and Metamizole may falsely depress this assay. Normal range: <150 mg/dLBorderline High: 150-199 mg/dLHigh: 200-499 mg/dLVery High: >500 mg/dL Vitamin D,25 Hydroxyon 03-09 Vitamin D 25-OH 59.0 ng/mL Normal 30-100 [facility] Comment on above: Order Comment: Order Date: 03/09/25Order Info: 0786-1 - CMPOrder Info: [id number] - LIPID Result Comment: Judith min D Status Deficiency: <20 ng/mL (50nmol/L) Insufficiency: 20-30 ng/mL (50-75 nmol/L) Sufficiency: 30-100 ng/mL (75-250 nmol/L) Toxicity: >100 ng/mL (>250 nmol/L) Performed By: #### L 506.1001 ####[facility] [address] [place], [place], [id number] Absolute lymphocyte countOrd ered By: Jamal Crisostomo on 02-24-2025 Lymphocytes Auto (Unsp spec) [#/Vol] 0.63 10*3/uL Low 0.83-4.51 [facility] Absolute neutrophil countOrd ered By: Jamal Crisostomo on 02-24-2025 Neutrophils (Bld) [#/Vol] 12.5 10*3/uL High 2.0-7.7 [facility] Anion gap in Serum or Plasma Ordered By: Jamal Crisostomo on 02-24-2025 Anion gap [Moles/Vol] 14 mmol/L 5-15 [facility] Automated lymphocyte count a s percentage of total leukocytesOrdered By: Jamal Crisostomo on 02-24-2025 Lymphocytes/100 WBC Auto (Unsp spec) 4.6 % Low 19-41 [facility] BUN/creatinine ratioOrdered By: Jamal Crisostomo on 02-24-2025 Urea nitrogen/Creatinine [Mass ratio] 25.4 mg/mg High 10-20 [facility] Basic Metabolic Profile (BMP )on 02-24-2025 BUN/CRE 25.4 RATIO High 08-24 [facility] Comment on above: Performed By: #### L 500.2500, L100.0100, L501.2450, L501.5200, L500.3400 #### [facility] [address] [place], [address] Calcium [Mass/Vol] 9.2 mg/dL Normal 7.6-11.0 [facility] Comment on above: Performed By: #### L 500.2500, L100.0100, L501.2450, L501.5200, L500.3400 #### [facility] [address] [place], [address] Chloride [Moles/Vol] 105 mmol/L Normal 98-108 [facility] Comment on above: Performed By: #### L 500.2500, L100.0100, L501.2450, L501.5200, L500.3400 #### [facility] [address] [place], [address] CO2 [Moles/Vol] 19.8 mmol/L Low 21.0-32.0 [facility] Comment on above: Performed By: #### L 500.2500, L100.0100, L501.2450, L501.5200, L500.3400 #### [facility] [address] [place], [address] Creatinine [Mass/Vol] 0.87 mg/dL Normal 0.70-1.20 [facility] Comment on above: Performed By: #### L 500.2500, L100.0100, L501.2450, L501.5200, L500.3400 #### [facility] [address] [place], [address] ECRCL 56.79 ml/min Normal 50-250 [facility] Comment on above: Performed By: #### L 500.2500, L100.0100, L501.2450, L501.5200, L500.3400 #### [facility] [address] [place], [address] GAP 14 Normal 5-15 [facility] Comment on above: Performed By: #### L 500.2500, L100.0100, L501.2450, L501.5200, L500.3400 #### [facility] [address] [place], [address] GFR/1.73 sq M.predicted among non-blacks MDRD (S/P/Bld) [Vol rate/Area] 73 mL/min/{1.73_m2} Normal >60 [facility] Comment on above: Result Comment: mL/m in/1.73m2 CKD-EPI Creatinine Equation (2020) Performed By: #### L 500.2500, L100.0100, L501.2450, L501.5200, L500.3400 #### [facility] [address] [place], [address] Glucose [Mass/Vol] 161 mg/dL High 70-99 [facility] Comment on above: Performed By: #### L 500.2500, L100.0100, L501.2450, L501.5200, L500.3400 #### [facility] [address] [place], [address] Potassium [Moles/Vol] 4.2 mmol/L Normal 3.3-5.1 [facility] Comment on above: Performed By: #### L 500.2500, L100.0100, L501.2450, L501.5200, L500.3400 #### [facility] [address] [place], [address] Sodium [Moles/Vol] 139 mmol/L Normal 133-145 [facility] Comment on above: Performed By: #### L 500.2500, L100.0100, L501.2450, L501.5200, L500.3400 #### [facility] [address] [place], [address] Urea nitrogen [Mass/Vol] 22 mg/dL High 4-19 [facility] Comment on above: Performed By: #### L 500.2500, L100.0100, L501.2450, L501.5200, L500.3400 #### [facility] [address] [place], [address] Basophil percentageOrdered B y: Jamal Crisostomo on 02-24-2025 Basophils/100 WBC (Bld) 0.1 % 0-1 [facility] Bilirubin directOrdered By: Jamal Crisostomo on 02-24-2025 Bilirubin.direct [Mass/Vol] 0.23 mg/dL 0.00-0.30 [facility] Bilirubin, totalOrdered By: Jamal Crisostomo on 02-24-2025 Bilirubin [Mass/Vol] 0.49 mg/dL 0.00-1.30 [facility] CBC W/Diff, Automatedon 02-04 Absolute Lymph 0.63 X10 3/uL Low 0.83-4.51 [facility] Comment on above: Performed By: #### L 500.2500, L100.0100, L501.2450, L501.5200, L500.3400 #### [facility] [address] [place], [address] Absolute Neut 12.5 X10 3/uL High 2.0-7.7 [facility] Comment on above: Performed By: #### L 500.2500, L100.0100, L501.2450, L501.5200, L500.3400 #### [facility] [address] [place], [address] Basophils/100 WBC (Bld) 0.1 % Normal 0-1 [facility] Comment on above: Performed By: #### L 500.2500, L100.0100, L501.2450, L501.5200, L500.3400 #### [facility] [address] [place], [address] Eosinophils/100 WBC (Bld) 0.1 % Normal 0-5 [facility] Comment on above: Performed By: #### L 500.2500, L100.0100, L501.2450, L501.5200, L500.3400 #### [facility] [address] [place], [address] Erythrocyte distribution width (RBC) [Ratio] 13.2 % Normal 11.6-14.6 [facility] Comment on above: Performed By: #### L 500.2500, L100.0100, L501.2450, L501.5200, L500.3400 #### [facility] [address] [place], [address] Hematocrit (Bld) [Volume fraction] 42.6 % Normal 37-47 [facility] Comment on above: Performed By: #### L 500.2500, L100.0100, L501.2450, L501.5200, L500.3400 #### [facility] [address] [place], [address] Hemoglobin (Bld) [Mass/Vol] 14.4 g/dL Normal 12.0-15.0 [facility] Comment on above: Performed By: #### L 500.2500, L100.0100, L501.2450, L501.5200, L500.3400 #### [facility] [address] [place], [address] IG% 0.300 Normal 0.0-0.9 [facility] Comment on above: Result Comment: IG% - Immature Granulocytes (promyelocytes, myelocytes and metamyelocytes) > 1% indicates that a LEFT SHIFT is Present. Performed By: #### L 500.2500, L100.0100, L501.2450, L501.5200, L500.3400 #### [facility] [facility] [address] [place], [address] Lymphocytes/100 WBC (Bld) 4.6 % Low 19-41 [facility] Comment on above: Performed By: #### L 500.2500, L100.0100, L501.2450, L501.5200, L500.3400 #### [facility] [address] [place], [address] MCH (RBC) [Entitic mass] 29.6 pg Normal 27.0-32.0 [facility] Comment on above: Performed By: #### L 500.2500, L100.0100, L501.2450, L501.5200, L500.3400 #### [facility] [address] [place], [address] MCHC (RBC) [Mass/Vol] 33.8 g/dL Normal 32-36 [facility] Comment on above: Performed By: #### L 500.2500, L100.0100, L501.2450, L501.5200, L500.3400 #### [facility] [address] [place], [address] MCV (RBC) [Entitic vol] 87.5 fL Normal 81-99 [facility] Comment on above: Performed By: #### L 500.2500, L100.0100, L501.2450, L501.5200, L500.3400 #### [facility] [address] [place], [address] Monocytes/100 WBC (Bld) 3.9 % Normal 0-10 [facility] Comment on above: Performed By: #### L 500.2500, L100.0100, L501.2450, L501.5200, L500.3400 #### [facility] [address] [place], [address] Neutrophils/100 WBC (Bld) 91.0 % High 47-70 [facility] Comment on above: Performed By: #### L 500.2500, L100.0100, L501.2450, L501.5200, L500.3400 #### [facility] [address] [place], [address] Nucleated RBC (Bld) [#/Vol] 0 10*3/uL Normal 0-5 [facility] Comment on above: Performed By: #### L 500.2500, L100.0100, L501.2450, L501.5200, L500.3400 #### [facility] [address] [place], [address] Platelet mean volume (Bld) [Entitic vol] 8.4 fL Normal 6.2-12.0 [facility] Comment on above: Performed By: #### L 500.2500, L100.0100, L501.2450, L501.5200, L500.3400 #### [facility] [address] [place], [address] Platelets (Bld) [#/Vol] 233 10*3/uL Normal 150-450 [facility] Comment on above: Performed By: #### L 500.2500, L100.0100, L501.2450, L501.5200, L500.3400 #### [facility] [address] [place], [address] RBC (Bld) [#/Vol] 4.87 10*6/uL Normal 4.2-5.[address] [facility] Comment on above: Performed By: #### L 500.2500, L100.0100, L501.2450, L501.5200, L500.3400 #### [facility] [address] [place], [address] RDW SD 42.5 fl Normal 35.1-43.9 [facility] Comment on above: Performed By: #### L 500.2500, L100.0100, L501.2450, L501.5200, L500.3400 #### [facility] [address] [place], [address] WBC (Bld) [#/Vol] 13.7 10*3/uL High 4.4-11.[address] [facility] Comment on above: Performed By: #### L 500.2500, L100.0100, L501.2450, L501.5200, L500.3400 #### [facility] [address] [place], [address] Carbon dioxide, total [Moles /volume] in Central venous bloodOrdered By: Jamal Crisostomo on 02-24-2025 CO2 [Moles/Vol] 19.8 mmol/L Low 21.0-32.0 [facility] Chloride assayOrdered By: Camille Crisostomo on 02-24-2025 Chloride [Moles/Vol] 105 mmol/L 98-108 [facility] Emergency Department Summary on 02-24-[address] [facility] Medical Records Department [address] [place] [address] Emergency Department Summary 02/24/25 MR#: [id number] Acct: [id number] Name: CHICHI DRAKE Rep #: [id number] : 1960 64 From: Jamal Crisostomo DO PCP: Dr. Jo Ann Lee MD Status:DEP ER Location: ED HPI History of Present Illness Chief Complaint: Nausea/Vomiting/Diarrhea Informant: patient and friend Narrative Narrative: Patient is a 64-year-old female with past medical history of hypertension hyperlipidemia and asthma. 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 She states after arriving home the symptoms worsen and she began having bouts of vomiting and then progressed also having watery diarrhea. She states she had approximately 10-15 episodes of both and denies any dark discoloration or blood in either. She states that there has been no sick contacts and she denies any recent antibiotic use or travel outside the country. However because of the multiple episodes of vomiting and diarrhea she is concerned about dehydration and comes in for evaluation. [facility] Medical History Hiatal hernia Atherosclerotic heart disease of havasupai coronary artery without angina pectoris Hyperlipidemia Essential (primary) hypertension Asthma Finger dislocation Home Medications ???Medication ???Instructions ???Recorded ???Last Taken ???Type albuterol sulfate 90 mcg/actuation 1 - 2 puff inhalation Q4H PRN OR N 08/24/17 Unknown History aerosol inhaler (Ventolin HFA) Sob /Or Wheezing aspirin 81 mg tablet,delayed 81 mg PO DAILY@0800 08/24/1708/18 History release calcium carbonate 600 mg PO DAILY 08/24/17 Unknown H istory cholecalciferol (vitamin D3) 125 5,000 unit PO DAILY 08/24/17 Unkno wn History mcg (5,000 unit) capsule rtzsnvwu-lcs-asaqx acid 0.4 1 ea PO DAILY 08/24/17 Unknown His tory mg-lycopene 300 mcg-lutein 250 mcg tablet (Centrum Silver) rosuvastatin 10 mg tablet 20 mg PO DAILY 10/10/23 Unknown Hi story budesonide-formoterol HFA 160 1 inh inhalation BID PRN 11/10/24 Unknown History mcg-4.5 mcg/actuation aerosol inhaler (Symbicort) losartan 25 mg tablet 50 mg PO DAILY 11/10/24 Unknown Hi story dicyclomine 20 mg tablet 20 mg PO 4X/DAY PRN Abdominal 02/04 01/27 Unknown Rx bloating/spasm #28 tabs prochlorperazine maleate 10 mg 10 mg PO TID PRN nausea and Unknown Rx tablet (Compazine) vomiting #21 tabs Allergy/AdvReac Type Severity Reaction Status Date / Time ether (Ether) Allergy Other Verified 02/24/25 22:56 bupropion (From Contrave) AdvReac Intermediate Nausea Verified 02/24/25 22:56 lisinopril AdvReac Intermediate cough Verified 02/24/25 22:56 naltrexone (From Contrave) AdvReac Intermediate Nausea Verified 02/24/25 22:56 Family History no significant family his Surgical History History of hysterectomy S/P trigger finger release Social History Smoking Status: Never smoker alcohol intake: current alcohol intake frequency: holidays/special occasions only ROS ROS ED Constitutional Constitutional ED: Denies chills or fever(s) Eyes Eyes: Denies change in vision ENT ENT ED: Denies sore throat Cardiovascular Cardiovascular: Reports other Details: Positive syncope ; Denies chest pain Respiratory/Chest Respiratory/Chest: Denies cough or dyspnea Gastrointestinal Gastrointestinal: Reports abdominal pain, diarrhea, nausea and vomiting; Denies melena Genitourinary Genitourinary ED: Denies dysuria Musculoskeletal Musculoskeletal: Denies myalgias Integumentary Denies rash Neurologic Neurologic: Denies headache(s) Psychiatric Psychiatric: Reports anxiety Hematologic/Lymphatic Hematologic/Lymphatic: Denies easy bleeding or easy bruising EXAM Physical Exam Const Vital Signs: 02/24/25 22:57 02/24/25 23:10 Temperature 97.8 F Temperature Source Oral Pulse Rate 103 H Respiratory Rate 20 H Respiratory Effort Normal Respiratory Pattern Normal Pulse Ox 100 Oxygen Delivery Method Room Air Positive well nourished and well developed General Appearance ED: well developed; Negative for pallor HEENT Reports dry mucous membranes HEENT Narrative: Normocephalic atraumatic No tongue or lip swelling no oral lesions no airway edema or compromise Mucous membranes are dry and tacky; however no secondary findings in the posterior pharynx to suggest infection No tongue or cheek biting to suggest seizure activity Mouth ED: Yes dry mucous membranes Mouth: dry mucou (more content not included)... Normal [facility] Eosinophil percentageOrdered By: Jamal Crisostomo on 02-24-2025 Eosinophils/100 WBC (Bld) 0.1 % 0-5 [facility] Erythrocyte distribution wid th ratioOrdered By: Jamal Crisostomo on 02-24-2025 Erythrocyte distribution width (RBC) [Ratio] 13.2 % 11.6-14.6 [facility] Erythrocyte distribution wid th standard deviationOrdered By: Jamal Crisostomo on 02-24-2025 Erythrocyte distribution width (RBC) [Ratio] 42.5 fl 35.1-43.9 [facility] Glomerular filtration rate ( GFR) estimation/1.73 sq m using serum, plasma, or whole bOrdered By: Jamal Crisostomo on 02-24-2025 GFR/1.73 sq M.predicted among non-blacks MDRD (S/P/Bld) [Vol rate/Area] 73 mL/min/{1.73_m2} >60 [facility] Comment on above: mL/min/1.73m2 CKD-EP I Creatinine Equation (2020) Hematocrit Auto (Bld) [Volum e fraction]Ordered By: Jamal Crisostomo on 02-24-2025 Hematocrit (Bld) [Volume fraction] 42.6 % 37-47 [facility] Hemoglobin measurementOrdere d By: Jamal Crisostomo on 02-24-2025 Hemoglobin (Bld) [Mass/Vol] 14.4 g/dL 12.0-15.0 [facility] Immature granulocytes/100 WB C Auto (Bld)Ordered By: Jamal Crisostomo on 02-24-2025 Immature granulocytes/100 WBC (Bld) 0.300 % 0.0-0.9 [facility] Comment on above: IG% - Immature Granu locytes (promyelocytes, myelocytes and metamyelocytes) > 1% indicates that a LEFT SHIFT is Present. Laboratory - Chemistry and C hemistry - challengeOrdered By: Jamal Crisostomo on 02-24-2025 AST [Catalytic activity/Vol] 33 U/L High <32 [facility] Lipaseon 02-24-2025 Lipase [Catalytic activity/Vol] 34 U/L Normal 13-75 [facility] Comment on above: Result Comment: Alex zayas note: LIPASE revised reference range effective 23. New Lipase methodology. Expected to produce lower values than the previous assay method. NEW Reference Range: 13 - 75 U/L Performed By: #### L 500.2500, L100.0100, L501.2450, L501.5200, L500.3400 #### [facility] [address] [facility] [place], [address] Lipase measurementOrdered By : Jamal Crisostomo on 02-24-2025 Lipase [Catalytic activity/Vol] 34 U/L 13-75 [facility] Comment on above: Please note:LIPASE r evised reference range effective 23. New Lipase methodology. Expected to produce lower values than the previous assay method. NEW Reference Range: 13 - 75 U/L Liver Profileon 02-24-2025 Albumin [Mass/Vol] 4.2 g/dL Normal 3.4-4.8 [facility] Comment on above: Performed By: #### L 500.2500, L100.0100, L501.2450, L501.5200, L500.3400 #### [facility] [address] [place], [address] ALK PHOS 75 U/L Normal 35-104 [facility] Comment on above: Performed By: #### L 500.2500, L100.0100, L501.2450, L501.5200, L500.3400 #### [facility] [address] [place], [address] ALT [Catalytic activity/Vol] 28 U/L Normal <=34 [facility] Comment on above: Performed By: #### L 500.2500, L100.0100, L501.2450, L501.5200, L500.3400 #### [facility] [address] [place], [address] AST [Catalytic activity/Vol] 33 U/L High <=31 [facility] Comment on above: Performed By: #### L 500.2500, L100.0100, L501.2450, L501.5200, L500.3400 #### [facility] [address] [place], [address] Bilirubin [Mass/Vol] 0.49 mg/dL Normal 0.00-1.30 [facility] Comment on above: Performed By: #### L 500.2500, L100.0100, L501.2450, L501.5200, L500.3400 #### [facility] [address] [place], [address] Bilirubin.direct [Mass/Vol] 0.23 mg/dL Normal 0.00-0.30 [facility] Comment on above: Performed By: #### L 500.2500, L100.0100, L501.2450, L501.5200, L500.3400 #### [facility] [address] [place], [address] Globulin (S) [Mass/Vol] 2.7 g/dL Normal 2.2-4.2 [facility] Comment on above: Performed By: #### L 500.2500, L100.0100, L501.2450, L501.5200, L500.3400 #### [facility] [address] [place], [address] T PROT 6.9 g/dL Normal 5.9-8.4 [facility] Comment on above: Performed By: #### L 500.2500, L100.0100, L501.2450, L501.5200, L500.3400 #### [facility] [address] [place], [address] MCV (mean corpuscular volume ) determinationOrdered By: Jamal Crisostomo on 02-24-2025 MCV (RBC) [Entitic vol] 87.5 fL 81-99 [facility] Magnesiumon 02-24-2025 Magnesium [Mass/Vol] 1.8 mg/dL Normal 1.5-2.2 [facility] Comment on above: Performed By: #### L 500.2500, L100.0100, L501.2450, L501.5200, L500.3400 #### [facility] [address] [place], [address] Magnesium measurement (mass/ volume)Ordered By: Jamal Crisostomo on 02-24-2025 Magnesium (Unsp spec) [Mass/Vol] 1.8 mg/dL 1.5-2.2 [facility] Mean corpuscular hemoglobin (MCH) determinationOrdered By: Jamal Crisostomo on 02-24-2025 MCH (RBC) [Entitic mass] 29.6 pg 27.0-32.0 [facility] Mean corpuscular hemoglobin concentration (MCHC) determinationOrdered By: Jamal Crisostomo on 02-24-2025 MCHC (RBC) [Mass/Vol] 33.8 g/dL 32-36 [facility] Mean platelet volume determi nationOrdered By: Jamal Crisostomo on 02-24-2025 Platelet mean volume (Bld) [Entitic vol] 8.4 fL 6.2-12.0 [facility] Monocyte percentageOrdered B y: Jamal Crisostomo on 02-24-2025 Monocytes/100 WBC (Bld) 3.9 % 0-10 [facility] Neutrophil percentageOrdered By: Jamal Crisostomo on 02-24-2025 Neutrophils/100 WBC (Bld) 91.0 % High 47-70 [facility] Nucleated red blood cell per centageOrdered By: Jamal Crisostomo on 02-24-2025 Nucleated RBC/100 WBC (Bld) [Ratio] 0 % 0-5 [facility] Platelet countOrdered By: Camille Crisostomo on 02-24-2025 Platelets (Bld) [#/Vol] 233 10*3/uL 150-450 [facility] Potassium measurement (mass/ volume)Ordered By: Jamal Crisostomo on 02-24-2025 Potassium (Unsp spec) [Mass/Vol] 4.2 mmol/L 3.3-5.1 [facility] RBC Auto (Bld) [#/Vol]Ordere d By: Jamal Crisostomo on 02-24-2025 RBC (Bld) [#/Vol] 4.87 10*6/uL 4.2-5.[address] [facility] Serum creatinine measurement (mass/volume)Ordered By: Jamal Crisostomo on 02-24-2025 Creatinine [Mass/Vol] 0.87 mg/dL 0.70-1.20 [facility] Serum globulin measurementOr dered By: Jamal Crisostomo on 02-24-2025 Globulin (S) [Mass/Vol] 2.7 g/dL 2.2-4.2 [facility] Serum glucose measurement (m ass/volume)Ordered By: Jamal Crisostomo on 02-24-2025 Glucose [Mass/Vol] 161 mg/dL High 70-99 [facility] Serum or plasma alanine banks otransferase (ALT) measurementOrdered By: Jamal Crisostomo on 02-24-2025 ALT [Catalytic activity/Vol] 28 U/L <35 [facility] Serum or plasma albumin tomi urement (mass/volume)Ordered By: Jamal Crisostomo on 02-24-2025 Albumin [Mass/Vol] 4.2 g/dL 3.4-4.8 [facility] Serum or plasma alkaline scott sphatase measurementOrdered By: Jamal Crisostomo on 02-24-2025 ALP [Catalytic activity/Vol] 75 U/L 35-104 [facility] Serum or plasma calcium tomi urement (mass/volume)Ordered By: Jamal Crisostomo on 02-24-2025 Calcium [Mass/Vol] 9.2 mg/dL 7.6-11.0 [facility] Serum or plasma urea nitroge n measurement (mass/volume)Ordered By: Jamal Crisostomo on 02-24-2025 Urea nitrogen [Mass/Vol] 22 mg/dL High 4-19 [facility] Sodium levelOrdered By: Eloy Crisostomo on 02-24-2025 Sodium [Moles/Vol] 139 mmol/L 133-145 [facility] Total proteinOrdered By: Osmin Crisostomo on 02-24-2025 Protein [Mass/Vol] 6.9 g/dL 5.9-8.4 [facility] White blood cell (WBC) count Ordered By: Jamal Crisostomo on 02-24-2025 WBC (Bld) [#/Vol] 13.7 10*3/uL High 4.4-11.[address] [facility] 12 Lead E[place] performed [place] [facility] [place] 11-10-2024 12 Lead EKG performed by [facility] [address] [place] [address] 12 Lead EKG performed by [facility] 11/10/24 1032 MR#: [id number] Acct: [id number] Name: CHICHI DRAKE Rep #: [id number] : 1960 63 From: Ingris Chu Attending Dr: ABHISHEK Fernandez Status: DEP AMB Ordering Dr: Ingris Joaquin Date: 04/29 Location: [facility] Sex: F C Admitted: [facility]12 Lead EKG performed by [facility] ECG Report Interpretation S inus Rhythm Low voltage in precordial leads. ABNORMAL Electronically signed on 11/12/2024 at 14:41 by Owen [employer]wood Software Version [id number] 11/12/24 1443 Date Ingris WEISS CC: Dr. Jo Ann Lee MD Date Dictated: 11/10/24 103 Date Transcribed: 11/10/241031 Repair Order Clerk: MADAN Signed Normal [facility] Cardiology Visit Reporton Cardiology Visit Report [facility] [address] [place] [address] [facility] [place] [address] OFFICE VISIT Date of Service: 11/10/24 MR#: [id number] Acct: [id number] Name: CHICHI DRAKE Rep #: [id number] : 1960 Provider: ABHISHEK Cardoso Age/Sex: 63/F [facility] Status: Signed HPI HPI History of Present Illness Details: Chichi Drake is a 63-year-old lady with no previous cardiac history but a history of hypertension mild hyperlipidemia and a strong family history of coronary disease who wanted to undergo a coronary artery calcium score which she did and was noted to be above the 90th percentile. The total Agatston score was noted to be approximately 490. Echocardiogram done in November 2023 demonstrated an ejection fraction of 65%, stage I diastolic dysfunction, mild tricuspid insufficiency. Stress test was negative for ischemia at a high workload. She did retire in February of 2024. She is enjoying alf. 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 From a cardiac standpoint, patient is doing well. She does not have any chest discomfort/heaviness/tightn ess. Her exercise tolerance is stable for her age. She does not have any worsening symptoms of shortness of breath. She does not have any orthopnea. She denies PND. She does not have any symptoms of congestive heart failure. She does not have any palpitations that she is aware of. She does not have any lightheadedness or dizziness. She does not have any near- syncope or syncope. She does not have any lower extremity edema. She does not have any symptoms of claudication. EKG today demonstrates sinus rhythm Intake Vital Signs 11/07/23 09:25 12/02/23 06:11 11/10/24 09:53 Height 5 ft 1 in 5 ft 1 in 5 ft 1 in Weight: 148 lb BMI 27.9 BP 128/83 H Blood Pressure Location Lt brachial Position Sitting Respiration 18 Pulse 70 Pulse Source Monitor Pulse Oximetry (%) 99 Intake Visit Reasons: 1 Y FU Plastics Fitter Required: No Is patient in pain?: No Allergies ether (Ether) Allergy (Verified 11/10/24 09:53) Other bupropion (From Contrave) Adverse Reaction (Intermediate, Verified 11/10/24 09:53) Nausea lisinopril Adverse Reaction (Intermediate, Verified 11/10/24 09:53) cough naltrexone (From Contrave) Adverse Reaction (Intermediate, Verified 11/10/24 09:53) Nausea Medications ???Medication ???Instructions ???Recorded ???Confirmed ???Type albuterol sulfate 90 mcg/actuation 1 - 2 puff inhalation Q4H PRN PRN 08/24/17 11/10/24 History aerosol inhaler (Ventolin HFA) Sob /Or Wheezing aspirin 81 mg tablet,delayed 81 mg PO DAILY@0800 08/24/17 11/10/24 History release calcium carbonate 600 mg PO DAILY 08/24/17 11/10/24 History cholecalciferol (vitamin D3) 125 5,000 unit PO DAILY 08/24/17 11/10/24 History mcg (5,000 unit) capsule twlwihfn-pco-wgqul acid 0.4 1 ea PO DAILY 08/24/17 11/10/24 History mg-lycopene 300 mcg-lutein 250 mcg tablet (Centrum Silver) rosuvastatin 10 mg tablet 20 mg PO DAILY 10/10/23 11/10/24 History budesonide-formoterol HFA 160 1 inh inhalation BID PRN 11/10/24 11/10/24 History mcg-4.5 mcg/actuation aerosol inhaler (Symbicort) losartan 25 mg tablet 50 mg PO DAILY 11/10/24 11/10/24 History Have you fallen in the past year?: No PFSH Medical History Hiatal hernia Atherosclerotic heart disease of havasupai coronary artery without angina pectoris Hyperlipidemia Essential (primary) hypertension Asthma Finger dislocation Surgical History History of hysterectomy S/P trigger finger release Social History Smoking Status: Never smoker alcohol intake: current alcohol intake frequency: holidays/special occasions only ROS Const Const: Negative for fatigue, weakness, fever(s) or headache(s) Eyes Eyes: Negative for blind spots, loss of peripheral vision or transient loss of vision ENT ENT: Negative for headache(s), dizziness, tinnitus, Nosebleed/epistaxis or balance problems Cardio Chest Pain: No Palpitations: No Edema: None Muscle aches with walking: None Resp Respiratory: Negative for SOB with activity, SOB at rest, SOB orthopnea SOB lying down or Cough GI GI: Negative nausea, vomiting, heartburn or vomiting blood/hematemesis : Negative for hematuria Musc Musc: Negative for muscle aches/ myalgia, muscle weakness, joint pain or balance problems Neuro Neuro: Negative for dizziness, lightheadedness, near syncope, syncope, orthostatic symptoms, headache(s) or weakness Andrew Hematologic/Lymphatic: Negative for easy bleeding Endo Endo: Negative for fatigue Cardiology Exam Const Appearance (more content not included)... Normal [facility] SCRN MAMM (CAD)W/NAWAF BILATo n 10-20-2024 SCRN MAMM (CAD)W/NAWAF BILAT [facility] Imaging Services [address] [place], [place] [id number] SCRN MAMM (CAD)W/NAWAF BILAT MR#: [id number] Acct: [id number] Name: CHICHI DRAKE Rep #: [id number] : 1960 F 63 From: Lawrence crespo MD PCP: Dr. Jo Ann Lee MD Status: REG CLI Study: SCRN MAMM (CAD)W/NAWAF BILAT Date of Exam: 10/05 04/28 Exam# [id number] Ordering Dr: Gracia Godoy NP [id number] MAMMOGRAPHY - BILATERAL SCREENING REASON FOR EXAM: Female, 63 years old. Routine annual screening examination. PERTINENT HISTORY: Non-contributory. TECHNIQUE: Digital bilateral breast nawaf (3D mammographic acquisition) in the CC and MLO projections. 2-D mediolateral oblique (MLO) and craniocaudad (CC) views of both breasts were obtained. CAD: Full Field Digital Mammography with Computer Added Detection was performed. COMPARISON: Comparison is made with prior study dated October 18, 2023 and October 17, 2022. FINDINGS: Breast Composition: There are scattered areas of fibroglandular density. There are no dominant masses or suspicious calcifications. Stable small benign appearing bilateral axillary lymph nodes. No other significant abnormalities are identified. There has been no significant change since the prior study. BI/SCRN MAMM (CAD)W/NAWAF BILAT IMPRESSION: Stable bilateral screening mammogram. Yearly follow-up mammogram recommended. (A) ASSESSMENT CATEGORY: BIRADS Category 2: Benign. A letter regarding these results will be sent to the patient by the facility within 30 days. Approximately 10% of breast cancers are not detected by mammography. A normal mammogram should not delay biopsy of a clinically suspicious abnormality. [id number] Electronically Signed: Lawrence Mccoy MD at 10:54 EST , CC: EVANGELINA Godoy; Dr. Jo Ann Lee MD Repair Order Clerk: Signed [facility] 09-15-2024 CNOV Office Visit (OBGYWM ) CHICHI DRAKE ([id number]) 1960 F Date Time Provider Department 09/15/24 9:30 AM GRACIA GODOY OBGYWM During your visit today, we recorded the following information about you: Blood pressure Weight Height 118/64 67 kg 1.541 m Gracia Godoy APRN.OPEN DIE INSPECTOR 09/15/2024 10:12 AM Signed Patient declined web programmerAlo Cadet is a 63 year old who presents for an annual gynecologic exam without complaints. Postmenopausal: Yes since age 43 HRT use: No. Last Pap: normal HPV: N/A History of abnormal pap: No Last mammogram: 2022 normal [facility] History of abnormal mammogram: No, fibrous tissue. Sexually active: Yes OB History T0 L0 SAB0 IAB0 Ectopic0 Multiple0 Live Births0 Surgical Territory Manager History LMP: Hysterectomy Age at Menarche: Age at First : Age at Menopause: Surgical Territory Manager History Comments: Sexual Activity: Not Currently; No partner data on record Contraception: No contraception data on record PAST MEDICAL HISTORY Diagnosis Date Asthma Essential hypertension Flat feet, bilateral History of left shoulder fracture Hypercholesterolemia PAST SURGICAL HISTORY Procedure Laterality Date FOOT RIGHT OP SURGERY KIDNEY SURGERY HX Left cyst removal PAST SURGICAL HISTORY OF excison precancerous mole TONSILLECTOMY AND ADENOIDECTOMY tonsillectomy TOTAL ABDOM HYSTERECTOMY 04/21/2004 [place] HoweByvftjy-sgtzkbxm-zqplpbcg WALANT PROCEDURE Left FAMILY HISTORY Problem Relation Age of Onset No Known Problems Sister No Known Problems Brother SOCIAL HISTORY Social History Tobacco Use Smoking status: Never Passive exposure: Never Smokeless tobacco: Never Vaping Use Vaping status: Never Used Substance Use Topics Alcohol use: Yes Comment: [...] skin retraction Allergies and current medication updated:Yes SENSITIVE EXAM: The sensitive examination was discussed with the Patient or Patient's Authorized Manager Fashion. As applicable, any other physician, advance practice provider, medical student, or other health professional student that will be observing or involved in the sensitive examination for educational or training purposes was discussed with the Patient or Authorized Manager Fashion. The Patient or Authorized Manager Fashion has agreed to proceed with the sensitive examination. (Sensitive examination includes inspection and/or palpation of the breasts, pelvis, prostate and anorectal regions). EXAM: There were no vitals taken for this visit. GENERAL: pleasant, female in no apparent distress [...] external genitalia normal, normal Bartholin's glands, urethra, [place]'s glands, no vulvar lesions, no cervical lesions, good vaginal support, physiologic discharge present, normal appearing perineal body and perianal region BIMANUAL: no adnexal masses, non-tender, and uterus surgically absent RECTOVAGINAL: rectovaginal exam negative for any masses or nodularity. NEURO: alert and oriented x3,exam grossly non-focal EXTREMITIES: normal ASSESSMENT/PLAN: 1) Health maintenance: Pap/HPV up to date. Mammogram ordered Nutrition, exercise and routine health maintenance exams reviewed. Calcium/Vitamin D supplementation information provided. Colon cancer screening: up to date with screening due @ 66 yo BMD: up to date 2) Follow up one year or sooner as needed Gracia Godoy APRN.CNP Allergies As of Date: 09/15/2024 Noted Allergy Reaction ETHER FOR ANESTHESIA (ETHER) 01/24/2007 10 - Anaphylaxis Date Reviewed: 09/15/2024 Reviewed by: Benton, Gracia, MANIPULATOR OPERATOR.OPEN DIE INSPECTOR - Fully Assessed Reason for Visit: Well Woman [1463] Primary Visit Diagnosis:Encounter for gynecological examination (general) (routine) without abnormal findings [Z01.419] Other Visit Diagnosis:Encounter for screening mammogram for breast cancer [Z12.31] Prescriptions as of 09/15/2024 - coenzyme Q10 (CO Q-10) 100 mg cap capsule Take 100 mg by mouth two times a day. - budesonide/formoterol fumarate (SYMBICORT INHALATION) Inhale as instructed. - losartan (COZAAR) 25 mg tablet Take 50 m (more content not included)... Normal [facility] CHICHI DRAKE ([id number]) 1960 F Date Time Provider Department 09/15/24 GRACIA GODOY OBGYWLaurie During your visit today, we recorded the following information about you: Sheyla Stevens LPN 09/15/2024 10:36 AM Signed Faxed Rx Breast Imaging to [facility] 09/15/2024 at 10:30 AM to [phone]. Sheyla Stevens LPN Allergies As of Date: 09/15/2024 Noted Allergy Reaction ETHER FOR ANESTHESIA (ETHER) 01/24/2007 10 - Anaphylaxis Date Reviewed: 09/15/2024 Reviewed by: Gracia Godoy APRN.OPEN DIE INSPECTOR - Fully Assessed Prescriptions as of 09/15/2024 - coenzyme Q10 (CO Q-10) 100 mg cap capsule Take 100 mg by mouth two times a day. - budesonide/formoterol fumarate (SYMBICORT INHALATION) Inhale as instructed. - losartan (COZAAR) 25 mg tablet Take 50 mg by mouth once daily. - rosuvastatin (CRESTOR) 10 mg tablet Take 20 mg by mouth once daily. - Aspirin 81 mg ORAL Tab Take one(1) tablet daily. HELD 05/10/07 - CALCIUM 500 MG TAB 1200 mg per day - CENTRUM SILVER TAB Take one(1) tablet daily. - OMEGA 3 550 MG CAP Take one(1) capsule daily. 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 L501.2276on 08-14-2024 Ionized Calcium 5.31 mg/dL High 4.36-5.20 [facility] Comment on above: Performed By: #### L 501.2276 ####[facility] [address] [place], [address] Basic Metabolic Profile (BMP )on 08-13-2024 BUN/CRE 22.4 RATIO High 08-24 [facility] Comment on above: Order Comment: Order Date: 08/05/24Order Info: [id number] - BMPOrder Info: [id number] - LIPID Performed By: #### L 509.1000, L506.1000, L500.4100, L500.2500, L501.9985, L502.0500 ####[facility] [address] [place], [address] CA,Total 9.3 mg/dL Normal 8.5-10.1 [facility] Comment on above: Order Comment: Order Date: 08/05/24Order Info: [id number] - BMPOrder Info: [id number] - LIPID Performed By: #### L 509.1000, L506.1000, L500.4100, L500.2500, L501.9985, L502.0500 ####[facility] [address] [place], [address] Chloride [Moles/Vol] 111 mmol/L High 98-107 [facility] Comment on above: Order Comment: Order Date: 08/05/24Order Info: [id number]- - BMPOrder Info: [id number] - LIPID Performed By: #### L 509.1000, L506.1000, L500.4100, L500.2500, L501.9985, L502.0500 ####[facility] [address] [place], [address] CO2 [Moles/Vol] 26.0 mmol/L Normal 21.0-32.0 [facility] Comment on above: Order Comment: Order Date: 08/05/24Order Info: [id number] - BMPOrder Info: [id number] - LIPID Performed By: #### L 509.1000, L506.1000, L500.4100, L500.2500, L501.9985, L502.0500 ####[facility] [address] [place], [address] Creatinine [Mass/Vol] 0.85 mg/dL Normal 0.55-1.02 [facility] Comment on above: Order Comment: Order Date: 08/05/24Order Info: [id number] - BMPOrder Info: [id number] - LIPID Result Comment: The validity of the calculated GFR GFRAA in patients over 70 years has not been determined. Clinical correlation is essential. Performed By: #### L 509.1000, L506.1000, L500.4100, L500.2500, L501.9985, L502.0500 ####[facility] [address] [place], [address] EST GFR - AA 87 mL/min Normal >60 [facility] Comment on above: Order Comment: Order Date: 08/05/24Order Info: [id number] - BMPOrder Info: [id number] - LIPID Result Comment: Afri can [place] GFR Calc Performed By: #### L 509.1000, L506.1000, L500.4100, L500.2500, L501.9985, L502.0500 ####[facility] [address] [place], [address] GAP 5 Normal 5-15 [facility] Comment on above: Order Comment: Order Date: 08/05/24Order Info: [id number] - BMPOrder Info: [id number] - LIPID Performed By: #### L 509.1000, L506.1000, L500.4100, L500.2500, L501.9985, L502.0500 ####[facility] [address] [place], [address] GFR/1.73 sq M.predicted among non-blacks MDRD (S/P/Bld) [Vol rate/Area] 72 mL/min/{1.73_m2} Normal >60 [facility] Comment on above: Order Comment: Order Date: 08/05/24Order Info: [id number] - BMPOrder Info: [id number] - LIPID Result Comment: Non- GFR Calc Performed By: #### L 509.1000, L506.1000, L500.4100, L500.2500, L501.9985, L502.0500 ####[facility] [address] [place], [address] Glucose [Mass/Vol] 97 mg/dL Normal 74-106 [facility] Comment on above: Order Comment: Order Date: 08/05/24Order Info: [id number] - BMPOrder Info: [id number] - LIPID Performed By: #### L 509.1000, L506.1000, L500.4100, L500.2500, L501.9985, L502.0500 ####[facility] [address] [place], [address] Potassium [Moles/Vol] 4.0 mmol/L Normal 3.5-5.1 [facility] Comment on above: Order Comment: Order Date: 08/05/24Order Info: [id number] - BMPOrder Info: [id number] - LIPID Performed By: #### L 509.1000, L506.1000, L500.4100, L500.2500, L501.9985, L502.0500 ####[facility] [address] [place], [place], [address] Sodium [Moles/Vol] 142 mmol/L Normal 136-145 [facility] Comment on above: Order Comment: Order Date: 08/05/24Order Info: 06- - BMPOrder Info: [id number] - LIPID Performed By: #### L 509.1000, L506.1000, L500.4100, L500.2500, L501.9985, L502.0500 ####[facility] [address] [place], [address] Urea nitrogen [Mass/Vol] 19 mg/dL High 7-18 [facility] Comment on above: Order Comment: Order Date: 08/05/24Order Info: 06 - BMPOrder Info: [id number] - LIPID Performed By: #### L 509.1000, L506.1000, L500.4100, L500.2500, L501.9985, L502.0500 ####[facility] [address] [place], [address] Hemoglobin A1con 08-13-2024 HbA1c (Bld) [Mass fraction] 5.8 % High 3.8-5.6 [facility] Comment on above: Order Comment: Order Date: 08/05/24Order Info: [id number] - A1C Result Comment: Norm al < 5.7 % Prediabetic 5.7 - 6.4 % Diabetic >or= 6.5 % Please note range changes. Performed By: #### L 509.1000, L506.1000, L500.4100, L500.2500, L501.9985, L502.0500 ####[facility] [address] [place], [place], [id number] Lipid Profileon 08-13-2024 Cholesterol [Mass/Vol] 148 mg/dL Normal 200 [facility] Comment on above: Order Comment: Order Date: 08/05/24Order Info: [id number]- - BMPOrder Info: [id number] - LIPID Result Comment: <200 mg/dL Desirable 200-240 mg/dL Borderline >240 mg/dL High Risk Performed By: #### L 509.1000, L506.1000, L500.4100, L500.2500, L501.9985, L502.0500 ####[facility] [address] [place], [address] Cholesterol in HDL [Mass/Vol] 81 mg/dL Normal [facility] Comment on above: Order Comment: Order Date: 08/05/24Order Info: [id number] - BMPOrder Info: [id number] - LIPID Result Comment: The drugs N-Acetylcysteine and Metamizole may falsely depress this assay. Reference Range HDL <40 mg/dL Low HDL Cholesterol HDL >or= 60 mg/dL High HDL Cholesterol Performed By: #### L 509.1000, L506.1000, L500.4100, L500.2500, L501.9985, L502.0500 ####[facility] [address] [place], [address] Cholesterol in LDL [Mass/Vol] 50 mg/dL Normal 0-130 [facility] Comment on above: Order Comment: Order Date: 08/05/24Order Info: [id number] - BMPOrder Info: [id number] - LIPID Performed By: #### L 509.1000, L506.1000, L500.4100, L500.2500, L501.9985, L502.0500 ####[facility] [address] [place], [address] Cholesterol in VLDL [Mass/Vol] 17 mg/dL Normal 5-40 [facility] Comment on above: Order Comment: Order Date: 08/05/24Order Info: [id number] - BMPOrder Info: [id number] - LIPID Performed By: #### L 509.1000, L506.1000, L500.4100, L500.2500, L501.9985, L502.0500 ####[facility] [address] [place], [address] Triglyceride [Mass/Vol] 85 mg/dL Normal [facility] Comment on above: Order Comment: Order Date: 08/05/24Order Info: [id number] - BMPOrder Info: [id number] - LIPID Result Comment: The drugs N-Acetylcysteine and Metamizole may falsely depress this assay. Serum Triglycerides Reference Interval Normal <150 mg/dL Borderline high 150 - 199 mg/dL High 200 - 499 mg/dL Very High > or = 500 mg/dL Performed By: #### L 509.1000, L506.1000, L500.4100, L500.2500, L501.9985, L502.0500 ####[facility] [address] [place], [address] Microalbumin,Random Urineon 08-13-2024 MICROALBUMIN,UR 18.7 mg/L Normal NO RANGE EST. [facility] Comment on above: Order Comment: Order Date: 08/05/24Order Info: [id number] - MIALB Performed By: #### L 509.1000, L506.1000, L500.4100, L500.2500, L501.9985, L502.0500 ####[facility] [address] [place], [address] PTHINon 08-13-2024 PTH 64.1 pg/mL Normal 18.4-80.1 [facility] Comment on above: Order Comment: Order Date: 08/05/24Order Info: [id number] - PTHIN Performed By: #### L 509.1000, L506.1000, L500.4100, L500.2500, L501.9985, L502.0500 ####[facility] [address] [place], [address] Vitamin D,25 Hydroxyon 08-13 Vitamin D 25-OH 61.3 ng/mL Normal [facility] Comment on above: Order Comment: Order Date: 08/05/24Order Info: [id number] - VITD25 Result Comment: Judith min D 25(OH) Status Range Deficiency <20 ng/mL (50nmol/L) Insufficiency 20 - 30 ng/mL (50 - 75 nmol/L) Sufficiency 30 - 100 ng/mL (75 - 250 nmol/L) Toxicity >100 ng/mL (>250 nmol/L) Performed By: #### L 509.1000, L506.1000, L500.4100, L500.2500, L501.9985, L502.0500 ####[facility] [address] [place], [address] ALBUMINon 07-09-2024 Albumin [Mass/Vol] 4.8 g/dL 3.5 - 5.0 g/dL [facility] BUN CREAon 07-09-2024 Creatinine [Mass/Vol] 0.74 mg/dL 0.50 - 1.20 mg/dL [facility] eGFR, CKD-EPI, Female 90 - PINF [facility] Comment on above: Reported eGFR is bas ed on the CKD-EPI 2020 equation using creatinine, age, and sex. Urea nitrogen [Mass/Vol] 23 mg/dL 7 - 25 mg/dL [facility] Urea nitrogen/Creatinine [Mass ratio] 31 mg/mg [facility] CALCIUMon 07-09-2024 Calcium [Mass/Vol] 9.8 mg/dL 8.6 - 10. 5 mg/dL [facility] No Panel Informationon 07-09 Interpretation and review of laboratory results Normal [facility] PTH INTACTOrdered By: Shea Ramos on 07-09-2024 Interpretation and review of laboratory results Normal [facility] Parathyrin.intact [Mass/Vol] 55.4 pg/mL 14.0 - 72.0 pg/mL [facility] TSHon 07-09-2024 Interpretation and review of laboratory results Normal [facility] TSH Qn 0.949 m[IU]/L [facility] VITAMIN D (25-HYDROXY,TOTAL) on 07-09-2024 Interpretation and review of laboratory results Normal [facility] Vitamin D+Metabolites [Mass/Vol] 54.2 ng/mL 30.0 - 100.0 ng/mL [facility] Comment on above: <10 Deficiency 10-29 Insufficiency 30-100 Optimal Level >100 Possible Toxicity Vitamin D values hav e been shown to be falsely decreased in lipemic samples and should be interpreted with caution. [facility] Basophil percentageOrdered B y: Jo Ann Lee on 03-03-2024 Bilirubin [Mass/Vol] 0.40 mg/dL 0.20-1.00 [facility] Comment on above: For patients on eltr ombopag therapy, use of Dimension Vincent TBIL is not recommended. Chloride [Moles/Vol] 110 mmol/L 98-107 [facility] Cholesterol [Mass/Vol] 130 mg/dL <200 [facility] Comment on above: <200 mg/dL Desirable 200-240 mg/dL Borderline >240 mg/dL High Risk Glucose [Mass/Vol] 110 mg/dL 74-106 [facility] Comment on above: Fasting Glucose resu lt from 100 to 125 mg/dL suggests IMPAIRED HOMEOSTASIS per A.D.A. criteria. Potassium [Moles/Vol] 4.3 mmol/L 3.5-5.1 [facility] Protein [Mass/Vol] 6.9 g/dL 6.4-8.2 [facility] Sodium [Moles/Vol] 142 mmol/L 136-145 [facility] Triglyceride [Mass/Vol] 106 mg/dL <199 [facility] Comment on above: The drugs N-Acetylcy steine and Metamizole may falsely depress this assay.Serum Triglycerides Reference Interval Normal <150 mg/dL Borderline high 150 - 199 mg/dL High 200 - 499 mg/dL Very High > or = 500 mg/dL Laboratory - Chemistry and C hemistry - challengeOrdered By: Jo Ann Lee on 03-03-2024 Albumin/Globulin [Mass ratio] 1.2 {ratio} 0.9-2.4 [facility] ALP [Catalytic activity/Vol] 75 U/L 45-117 [facility] ALT [Catalytic activity/Vol] 34 U/L 13-56 [facility] Cholesterol in HDL [Mass/Vol] 67 mg/dL >40 [facility] Comment on above: The drugs N-Acetylcy steine and Metamizole may falsely depress this assay. Reference Range HDL <40 mg/dL Low HDL Cholesterol HDL >or= 60 mg/dL High HDL Cholesterol Cholesterol in LDL [Mass/Vol] 42 mg/dL 0-130 [facility] CO2 [Moles/Vol] 25.0 mmol/L 21.0-32.0 [facility] Globulin (S) [Mass/Vol] 3.2 g/dL 2.2-4.2 [facility] Urea nitrogen/Creatinine [Mass ratio] 23.6 mg/mg 10-20 [facility] No Panel InformationOrdered By: Jo Ann Lee on 03-03-2024 Estimated GFR (MDRD) Amer 82 mL/min >60 [facility] Comment on above: GFR Calc Estimated GFR (MDRD) Non-Af Amer 68 mL/min >60 [facility] Comment on above: Non- GFR Calc VLDL Cholesterol 21 mg/dL 5-40 [facility] Serum or plasma calcium tomi urement (mass/volume)Ordered By: Jo Ann Lee on 03-03-2024 Calcium [Mass/Vol] 9.2 mg/dL 8.5-10.1 [facility] Serum or plasma creatinine m easurement (mass/volume)Ordered By: Jo Ann Lee on 03-03-2024 Creatinine [Mass/Vol] 0.89 mg/dL 0.55-1.02 [facility] Comment on above: The validity of the calculated GFR & GFRAA in patients over 70 years has not been determined. Clinical correlation is essential. Serum or plasma urea nitroge n measurement (mass/volume)Ordered By: Jo Ann Lee on 03-03-2024 Urea nitrogen [Mass/Vol] 21 mg/dL 7-18 [facility] Thin prep Papanicolaou smear with manual screeningOrdered By: Jo Ann Lee on 03-03-2024 Thin prep Papanicolaou smear with manual screening 3.7 g/dL 3.2-5.0 [facility] Thin prep Papanicolaou smear with manual screening 30 U/L 15-37 [facility] Thin prep Papanicolaou smear with manual screening 7 5-15 [facility] Basophil percentageOrdered B y: Jim Lee on 10-12-2023 Bilirubin [Mass/Vol] 0.40 mg/dL 0.20-1.00 [facility] Comment on above: For patients on eltr ombopag therapy, use of Dimension Vincent TBIL is not recommended. Chloride [Moles/Vol] 112 mmol/L 98-107 [facility] Cholesterol [Mass/Vol] 145 mg/dL <200 [facility] Comment on above: <200 mg/dL Desirable 200-240 mg/dL Borderline >240 mg/dL High Risk Glucose [Mass/Vol] 106 mg/dL 74-106 [facility] Comment on above: Fasting Glucose resu lt from 100 to 125 mg/dL suggests IMPAIRED HOMEOSTASIS per A.D.A. criteria. Potassium [Moles/Vol] 4.1 mmol/L 3.5-5.1 [facility] Protein [Mass/Vol] 7.2 g/dL 6.4-8.2 [facility] Sodium [Moles/Vol] 141 mmol/L 136-145 [facility] Triglyceride [Mass/Vol] 80 mg/dL <199 [facility] Comment on above: The drugs N-Acetylcy steine and Metamizole may falsely depress this assay.Serum Triglycerides Reference Interval Normal <150 mg/dL Borderline high 150 - 199 mg/dL High 200 - 499 mg/dL Very High > or = 500 mg/dL Laboratory - Chemistry and C hemistry - challengeOrdered By: Jim Lee on 08-16-2023 ALP [Catalytic activity/Vol] 74 U/L 45-117 [facility] ALT [Catalytic activity/Vol] 35 U/L 13-56 [facility] CO2 [Moles/Vol] 26.0 mmol/L 21.0-32.0 [facility] Globulin (S) [Mass/Vol] 3.6 g/dL 2.2-4.2 [facility] Magnesium [Mass/Vol] 2.5 mg/dL 1.6-2.6 [facility] Urea nitrogen/Creatinine [Mass ratio] 31.4 mg/mg 10- [facility] No Panel InformationOrdered By: Jim Lee on 08-16-2023 Ionized Calcium 5.25 mg/dL 4.36-5.20 [facility] Estimated GFR (MDRD) Amer 89 mL/min >60 [facility] Comment on above: GFR Calc Estimated GFR (MDRD) Non-Af Amer 74 mL/min >60 [facility] Comment on above: Non- GFR Calc Parathyroid Hormone (Intact) 47.9 pg/mL 18.4-80.1 [facility] Serum or plasma albumin tomi urement (mass/volume)Ordered By: Jim Lee on 08-16-2023 Albumin [Mass/Vol] 3.6 g/dL 3.2-5.0 [facility] Serum or plasma albumin/glob ulin mass ratioOrdered By: Jim Lee on 08-16-2023 Albumin/Globulin [Mass ratio] 1.0 {ratio} 0.9-2.4 [facility] Serum or plasma calcium tomi urement (mass/volume)Ordered By: Jim Lee on 08-16-2023 Calcium [Mass/Vol] 9.2 mg/dL 8.5-10.1 [facility] Serum or plasma cholesterol in HDL measurement (mass/volume)Ordered By: Jim Lee on 08-16-2023 Cholesterol in HDL [Mass/Vol] 72 mg/dL >40 [facility] Comment on above: The drugs N-Acetylcy steine and Metamizole may falsely depress this assay. Reference Range HDL <40 mg/dL Low HDL Cholesterol HDL >or= 60 mg/dL High HDL Cholesterol Serum or plasma cholesterol in VLDL measurement (mass/volume)Ordered By: Jim Lee on 08-16-2023 Cholesterol in VLDL [Mass/Vol] 16 mg/dL 5-40 [facility] Serum or plasma creatinine m easurement (mass/volume)Ordered By: Jim Lee on 08-16-2023 Creatinine [Mass/Vol] 0.83 mg/dL 0.55-1.02 [facility] Comment on above: The validity of the calculated GFR & GFRAA in patients over 70 years has not been determined. Clinical correlation is essential. Serum or plasma low density lipoprotein (LDL) cholesterol measurement (mass/volume)Ordered By: Jim Lee on 08-16-2023 Cholesterol in LDL [Mass/Vol] 57 mg/dL 0-130 [facility] Serum or plasma urea nitroge n measurement (mass/volume)Ordered By: Jim Lee on 08-16-2023 Urea nitrogen [Mass/Vol] 26 mg/dL 7-18 [facility] Thin prep Papanicolaou smear with manual screeningOrdered By: Jim Lee on 08-16-2023 Thin prep Papanicolaou smear with manual screening 16 U/L 15-37 [facility] Thin prep Papanicolaou smear with manual screening 3 5-15 [facility] BONE DENSITY AXIAL (HIP, PEL VIS, SPINE)on 07-04-2023 IMPRESSION: Based on BMD and WHO criteria diagnosis is consistent with osteopenia. Today's examination is compared to the technically similar prior study dated May 10, 2021 There has been a significant decrease in the BMD within the right hip since the prior * The T-score reflects standard deviations above (+) or below (-) a 20-40 year-old, , female, [place] population. At this age, it is assumed that peak bone mass is reached. * The Z-score reflects standard deviations above (+) or below (-) an age, sex, ethnicity, and weight-matched population. * Osteoporosis is defined as a skeletal disorder characterized by compromised bone strength predisposing to an increased risk of fracture. Bone strength reflects the integration of two main features: BMD and bone quality (MISTI 2001;285:785-795). Any history of fragility fracture is suggestive of osteoporosis, regardless of the BMD data acquired in this study. * Secondary causes of bone loss should be evaluated if clinically indicated as the etiology of low BMD cannot be determined by BMD measurement alone. FRAX is an available clinical tool developed to evaluate fracture risk in patients using individualized clinical risk factors. The online calculator can be accessed at the following link: https://frax.shef.ac.uk/FRA X/ The physician who interpreted this study is a Certified Clinical Tailman by the International Society of Clinical Densitometry Shanta Phelan DO, CCD. OLOGY EXAM: BONE DENSITY A XIAL (HIP, PELVIS, SPINE) 07/04/2023 11:01 AM TECHNIQUE: DXA scanning using a [employer]par[employer] bone densitometer at the [facility] was performed on 07/04/2023 11:01 AM CLINICAL INDICATIONS: senile osteoporosis, menopause RELEVANT CLINICAL HISTORY: M85.80:Osteopenia, unspecified location Z78.0:Menopause COMPARISON: Today's examination is compared to the technically similar prior study dated May 10, 2021 FINDINGS: 1. Quality of the examination at the L1-4 lumbar spine: Compromised at L4 which will be excluded from the BMD analysis similar to the prior exam 2. Quality of the examination at the dual hip: Adequate. BONE MINERAL DENSITY (BMD) CURRENT BONE MINERAL DENSITY (BMD) Region: g/cm2 T-Score Lumbar L1-L3 Spine: 1.116 -0.4 Left Femoral Neck: 0.824 -1.5 Left Total Hip: 0.829 -1.4 Right Femoral Neck: 0.816 -1.6 Right Total Hip: 0.799 -1.7 COMPARISON WITH PREVIOUS EXAMS ON: May 10, 2021 Body Region: Prev BMD Current BMD Change (g/cm2) (g/cm2) (%) Lumbar L1-L3 Spine: 1.122, 1.116, -0.5% Left Total Hip: 0.860, 0.829, -3.6% Right Total Hip: 0.851, 0.799, -6.1% RADIOLOGY Shanta Phelan D O - 07/04/2023 EXAM: BONE DENSITY AXIAL (HIP, PELVIS, SPINE) 07/04/2023 11:01 AM TECHNIQUE: DXA scanning using a [employer] bone densitometer at the [facility] was performed on 07/04/2023 11:01 AM CLINICAL INDICATIONS: senile osteoporosis, menopause RELEVANT CLINICAL HISTORY: M85.80:Osteopenia, unspecified location Z78.0:Menopause COMPARISON: Today's examination is compared to the technically similar prior study dated May 10, 2021 FINDINGS: 1. Quality of the examination at the L1-4 lumbar spine: Compromised at L4 which will be excluded from the BMD analysis similar to the prior exam 2. Quality of the examination at the dual hip: Adequate. BONE MINERAL DENSITY (BMD) CURRENT BONE MINERAL DENSITY (BMD) Region: g/cm2 T-Score Lumbar L1-L3 Spine: 1.116 -0.4 Left Femoral Neck: 0.824 -1.5 Left Total Hip: 0.829 -1.4 Right Femoral Neck: 0.816 -1.6 Right Total Hip: 0.799 -1.7 COMPARISON WITH PREVIOUS EXAMS ON: May 10, 2021 Body Region: Prev BMD Current BMD Change (g/cm2) (g/cm2) (%) Lumbar L1-L3 Spine: 1.122, 1.116, -0.5% Left Total Hip: 0.860, 0.829, -3.6% Right Total Hip: 0.851, 0.799, -6.1% IMPRESSION IMPRESSION: Based on BMD and WHO criteria diagnosis is consistent with osteopenia. Today's examination is compared to the technically similar prior study dated May 10, 2021 There has been a significant decrease in the BMD within the right hip since the prior * The T-score reflects standard deviations above (+) or below (-) a 20-40 year-old, , female, [place] population. At this age, it is assumed that peak bone mass is reached. * The Z-score reflects standard deviations above (+) or below (-) an age, sex, ethnicity, and weight-matched population. * Osteoporosis is defined as a skeletal disorder characterized by compromised bone strength predisposing to an increased risk of fracture. Bone strength reflects the integration of two main features: BMD and bone quality (MISTI 2001;285:785-795). Any history of fragility fracture is suggestive of osteoporosis, regardless of the BMD data acquired in this study. * Secondary causes of bone loss should be evaluated if clinically indicated as the etiology of low BMD cannot be determined by BMD measurement alone. FRAX is an available clinical tool developed to evaluate fracture risk in patients using individualized clinical risk factors. The online calculator can be accessed at the following link: https://frax.shef.ac.uk/FRA X/ The physician who interpreted this study is a Certified Clinical Tailman by the International Society of Clinical Densitometry Shanta Phelan DO, CCD. [facility] Radiology Study observation (narrative) [facility] BONE DENSITY AXIAL (HIP, PEL VIS, SPINE)Ordered By: Shanta Phelan on 07-04-2023 [facility] Work Phone: Culture, urineOrdered By: Dr Alo Lee on 02-08-2023 Bacteria identified Cx Nom (U) Mixed Gram Pos & Gram Neg Org [facility] Basophil percentageOrdered B y: Dr. Lee on 02-07-2023 Basophil percentage 0 SEEN /hpf 0-5 [facility] Bilirubin [Mass/Vol] 0.40 mg/dL 0.20-1.00 [facility] Comment on above: For patients on eltr ombopag therapy, use of Dimension Vincent TBIL is not recommended. Chloride [Moles/Vol] 110 mmol/L 98-107 [facility] Cholesterol [Mass/Vol] 152 mg/dL <200 [facility] Comment on above: <200 mg/dL Desirable 200-240 mg/dL Borderline >240 mg/dL High Risk Glucose [Mass/Vol] 98 mg/dL 74-106 [facility] Potassium [Moles/Vol] 4.1 mmol/L 3.5-5.1 [facility] Protein [Mass/Vol] 7.3 g/dL 6.4-8.2 [facility] Sodium [Moles/Vol] 139 mmol/L 136-145 [facility] Triglyceride [Mass/Vol] 104 mg/dL <199 [facility] Comment on above: The drugs N-Acetylcy steine and Metamizole may falsely depress this assay.Serum Triglycerides Reference Interval Normal <150 mg/dL Borderline high 150 - 199 mg/dL High 200 - 499 mg/dL Very High > or = 500 mg/dL Bilirubin Test strip Ql (U)O rdered By: Dr. Lee on 02-07-2023 Bilirubin Ql (U) Negative Negative [facility] Ketones Test strip Ql (U)Ord ered By: Dr. Lee on 02-07-2023 Ketones Ql (U) Negative Negative [facility] Laboratory - Chemistry and C hemistry - challengeOrdered By: Dr. Lee on 02-07-2023 ALP [Catalytic activity/Vol] 80 U/L 45-117 [facility] ALT [Catalytic activity/Vol] 45 U/L 13-56 [facility] CO2 [Moles/Vol] 22.0 mmol/L 21.0-32.0 [facility] Globulin (S) [Mass/Vol] 3.5 g/dL 2.2-4.2 [facility] Magnesium [Mass/Vol] 2.2 mg/dL 1.6-2.6 [facility] Urea nitrogen/Creatinine [Mass ratio] 17.6 mg/mg 10-20 [facility] Mucus LM Ql (Urine sed)Order ed By: Dr. Lee on 02-07-2023 Mucus Ql (Urine sed) 0 SEEN /hpf [facility] Nitrite Test strip Ql (U)Ord ered By: Dr. Lee on 02-07-2023 Nitrite Ql (U) Negative Negative [facility] No Panel InformationOrdered By: Dr. Lee on 02-07-2023 Ionized Calcium 5.1 mg/dL 4.5-5.6 [facility] Comment on above: Performed at: [email or web address] [facility] [address] [id number] Director: Baudilio Luna PhD, Phone: [phone] Estimated GFR (MDRD) Amer 80 mL/min >60 [facility] Comment on above: GFR Calc Estimated GFR (MDRD) Non-Af Amer 66 mL/min >60 [facility] Comment on above: Non- GFR Calc Parathyroid Hormone (Intact) 38.9 pg/mL 18.4-80.1 [facility] Thyroid Stimulating Hormone (TSH) 1.30 uIU/mL 0.358-3.74 [facility] Vitamin D 25-Hydroxy 65.8 ng/mL [facility] Comment on above: Vitamin D 25(OH) Sta tus Range Deficiency <20 ng/mL (50nmol/L) Insufficiency 20 - 30 ng/mL (50 - 75 nmol/L) Sufficiency 30 - 100 ng/mL (75 - 250 nmol/L) Toxicity >100 ng/mL (>250 nmol/L) Protein Test strip Ql (U)Ord ered By: Dr. Lee on 02-07-2023 Protein Ql (U) Negative Negative [facility] Serum or plasma albumin tomi urement (mass/volume)Ordered By: Dr. Lee on 02-07-2023 Albumin [Mass/Vol] 3.8 g/dL 3.2-5.0 [facility] Serum or plasma albumin/glob ulin mass ratioOrdered By: Dr. Lee on 02-07-2023 Albumin/Globulin [Mass ratio] 1.1 {ratio} 0.9-2.4 [facility] Serum or plasma calcium tomi urement (mass/volume)Ordered By: Dr. Lee on 02-07-2023 Calcium [Mass/Vol] 9.3 mg/dL 8.5-10.1 [facility] Serum or plasma cholesterol in HDL measurement (mass/volume)Ordered By: Dr. Lee on 02-07-2023 Cholesterol in HDL [Mass/Vol] 72 mg/dL >40 [facility] Comment on above: The drugs N-Acetylcy steine and Metamizole may falsely depress this assay. Reference Range HDL <40 mg/dL Low HDL Cholesterol HDL >or= 60 mg/dL High HDL Cholesterol Serum or plasma cholesterol in VLDL measurement (mass/volume)Ordered By: Dr. Lee on 02-07-2023 Cholesterol in VLDL [Mass/Vol] 21 mg/dL 5-40 [facility] Serum or plasma creatinine m easurement (mass/volume)Ordered By: Dr. Lee on 02-07-2023 Creatinine [Mass/Vol] 0.91 mg/dL 0.55-1.02 [facility] Comment on above: The validity of the calculated GFR & GFRAA in patients over 70 years has not been determined. Clinical correlation is essential. Serum or plasma low density lipoprotein (LDL) cholesterol measurement (mass/volume)Ordered By: Dr. Lee on 02-07-2023 Cholesterol in LDL [Mass/Vol] 59 mg/dL 0-130 [facility] Serum or plasma urea nitroge n measurement (mass/volume)Ordered By: Dr. Lee on 02-07-2023 Urea nitrogen [Mass/Vol] 16 mg/dL 7-18 [facility] Squamous epithelial cells de tection in urine sediment by light microscopyOrdered By: Dr. Lee on 02-07-2023 Epithelial cells.squamous LM Ql (Urine sed) 0 SEEN /hpf 5-10 [facility] Thin prep Papanicolaou smear with manual screeningOrdered By: Dr. Lee on 02-07-2023 Thin prep Papanicolaou smear with manual screening 25 U/L 15-37 [facility] Thin prep Papanicolaou smear with manual screening 7 5-15 [facility] Urine blood detectionOrdered By: Dr. Lee on 02-07-2023 RBC Ql (U) 150 /ul Negative [facility] RBC Ql (U) 0-5 SEEN /hpf 0-5 [facility] Urine clarityOrdered By: Dr. Lee on 02-07-2023 Clarity (U) Clear Clear [facility] Urine color determinationOrd ered By: Dr. Lee on 02-07-2023 Color (U) Yellow Yellow [facility] Urine glucose detectionOrder ed By: Dr. Lee on 02-07-2023 Glucose Ql (U) Normal mg/dl Normal [facility] Urine leukocyte esterase det ection by dipstickOrdered By: Dr. Lee on 02-07-2023 Leukocyte esterase Test strip Ql (U) 25 /ul Negative [facility] Urine pHOrdered By: Dr. Janet cazares on 02-07-2023 pH (U) 6.0 [pH] 5.0 - 8.0 [facility] Urine sediment bacteria coun t by microscopy (number/high power field)Ordered By: Dr. Lee on 02-07-2023 Bacteria LM.HPF (Urine sed) [#/Area] 0 /[HPF] None Seen [facility] Urine specific gravity measu rementOrdered By: Dr. Lee on 02-07-2023 Specific gravity (U) [Rel density] 1.015 1.002-1.03 0 [facility] Urobilinogen Auto test strip Ql (U)Ordered By: Dr. Lee on 02-07-2023 Urobilinogen Ql (U) Normal mg/dl Normal [facility] MRI SHOULDER W/O CONTRAST LE FTon 11-14-2022 MRI SHOULDER W/O CONTRAST LEFT ORIGINAL EXAMINATION: MRI OF THE LEFT SHOULDER [...] by: Denis Guadalupe DO Preliminary Report By: Iglesia Will Electronically signed By Denis Guadalupe DO Dictated Date: 11/14/2022 10:08:33 AM Prelim Date: 11/14/2022 1:03:55 PM Sign Date: 11/14/2022 1:03:55 PM Ordering Provider: JOSIAH HALEY [facility] ALBUMINon 06-08-2022 Albumin [Mass/Vol] 4.5 g/dL 3.5 - 5.0 g/dL [facility] BUN CREAon 06-08-2022 Creatinine [Mass/Vol] 0.82 mg/dL 0.50 - 1.20 mg/dL [facility] GFR/1.73 sq M.predicted CKD-EPI (S/P/Bld) [Vol rate/Area] 80 >=60 mL/min/1.7 3m2 [facility] Comment on above: Reported eGFR is bas ed on the CKD-EPI 2020 equation using creatinine, age, and sex. Urea nitrogen [Mass/Vol] 24 mg/dL 7 - 25 mg/dL [facility] Urea nitrogen/Creatinine [Mass ratio] 29 mg/mg [facility] CALCIUMon 06-08-2022 Calcium [Mass/Vol] 9.7 mg/dL 8.6 - 10. 5 mg/dL [facility] No Panel Informationon 06-08 Interpretation and review of laboratory results Normal [facility] PTH INTACTOrdered By: Juany Luna on 06-08-2022 Interpretation and review of laboratory results Normal [facility] Parathyrin.intact [Mass/Vol] 45.5 pg/mL 14.0 - 72.0 pg/mL [facility] TSHon 06-08-2022 Interpretation and review of laboratory results Normal [facility] TSH Qn 0.906 m[IU]/L [facility] VITAMIN D (25-HYDROXY,TOTAL) on 06-08-2022 Interpretation and review of laboratory results Normal [facility] Vitamin D+Metabolites [Mass/Vol] 63.4 ng/mL 30.0 - 100.0 ng/mL [facility] Comment on above: <10 Deficiency 10-29 Insufficiency 30-100 Optimal Level >100 Possible Toxicity Vitamin D values hav e been shown to be falsely decreased in lipemic samples and should be interpreted with caution. [facility] Basophil percentageon 2021 Bilirubin [Mass/Vol] 0.30 mg/dL 0.20-1.00 [facility] Work Phone: Comment on above: For patients on eltr ombopag therapy, use of Dimension Vincent TBIL is not recommended. Chloride [Moles/Vol] 110 mmol/L 98-107 [facility] Work Phone: Cholesterol [Mass/Vol] 165 mg/dL <200 [facility] Work Phone: Comment on above: <200 mg/dL Desirable 200-240 mg/dL Borderline >240 mg/dL High Risk Glucose [Mass/Vol] 97 mg/dL 74-106 [facility] Work Phone: Potassium [Moles/Vol] 4.1 mmol/L 3.5-5.1 [facility] Work Phone: Protein [Mass/Vol] 6.9 g/dL 6.4-8.2 [facility] Work Phone: Sodium [Moles/Vol] 141 mmol/L 136-145 [facility] Work Phone: Triglyceride [Mass/Vol] 149 mg/dL <199 [facility] Work Phone: Comment on above: The drugs N-Acetylcy steine and Metamizole may falsely depress this assay.Serum Triglycerides Reference Interval Normal <150 mg/dL Borderline high 150 - 199 mg/dL High 200 - 499 mg/dL Very High > or = 500 mg/dL Laboratory - Chemistry and C hemistry - challengeon 04-21-2022 ALP [Catalytic activity/Vol] 71 U/L 45-117 [facility] Work Phone: ALT [Catalytic activity/Vol] 35 U/L 13-56 [facility] Work Phone: CO2 [Moles/Vol] 25.0 mmol/L 21.0-32.0 [facility] Work Phone: Globulin (S) [Mass/Vol] 3.2 g/dL 2.2-4.2 [facility] Work Phone: Magnesium [Mass/Vol] 2.1 mg/dL 1.6-2.6 [facility] Work Phone: Urea nitrogen/Creatinine [Mass ratio] 22.8 mg/mg 10-20 [facility] Work Phone: No Panel Informationon 04-21 Estimated GFR (MDRD) Amer 89 mL/min >60 [facility] Work Phone: Comment on above: GFR Calc Estimated GFR (MDRD) Non-Af Amer 73 mL/min >60 [facility] Work Phone: Comment on above: Non- GFR Calc Ionized Calcium 5.4 mg/dL 4.5-5.6 [facility] Work Phone: Comment on above: Performed at: [address] [id number] Director: Baudilio Luna PhD, Phone: [phone] Parathyroid Hormone (Intact) 39.2 pg/mL 18.4-80.1 [facility] Work Phone: Thyroid Stimulating Hormone (TSH) 1.29 uIU/mL 0.358-3.74 [facility] Work Phone: Vitamin D 25-Hydroxy 58.3 ng/mL [facility] Work Phone: Comment on above: Vitamin D 25(OH) Sta tus Range Deficiency <20 ng/mL (50nmol/L) Insufficiency 20 - 30 ng/mL (50 - 75 nmol/L) Sufficiency 30 - 100 ng/mL (75 - 250 nmol/L) Toxicity >100 ng/mL (>250 nmol/L) Serum or plasma albumin tomi urement (mass/volume)on 04-21-2022 Albumin [Mass/Vol] 3.7 g/dL 3.2-5.0 [facility] Work Phone: Serum or plasma albumin/glob ulin mass ratioon 04-21-2022 Albumin/Globulin [Mass ratio] 1.2 {ratio} 0.9-2.4 [facility] Work Phone: Serum or plasma calcium tomi urement (mass/volume)on 04-21-2022 Calcium [Mass/Vol] 9.1 mg/dL 8.5-10.1 [facility] Work Phone: Serum or plasma cholesterol in HDL measurement (mass/volume)on 04-21-2022 Cholesterol in HDL [Mass/Vol] 69 mg/dL >40 [facility] Work Phone: Comment on above: The drugs N-Acetylcy steine and Metamizole may falsely depress this assay. Reference Range HDL <40 mg/dL Low HDL Cholesterol HDL >or= 60 mg/dL High HDL Cholesterol Serum or plasma cholesterol in VLDL measurement (mass/volume)on 04-21-2022 Cholesterol in VLDL [Mass/Vol] 30 mg/dL 5-40 [facility] Work Phone: Serum or plasma creatinine m easurement (mass/volume)on 04-21-2022 Creatinine [Mass/Vol] 0.83 mg/dL 0.55-1.02 [facility] Work Phone: Comment on above: The validity of the calculated GFR & GFRAA in patients over 70 years has not been determined. Clinical correlation is essential. Serum or plasma low density lipoprotein (LDL) cholesterol measurement (mass/volume)on 04-21-2022 Cholesterol in LDL [Mass/Vol] 66 mg/dL 0-130 [facility] Work Phone: Serum or plasma urea nitroge n measurement (mass/volume)on 04-21-2022 Urea nitrogen [Mass/Vol] 19 mg/dL 7-18 [facility] Work Phone: Thin prep Papanicolaou smear with manual screeningon 06-17-2022 Thin prep Papanicolaou smear with manual screening 24 U/L 15-37 [facility] Work Phone: Thin prep Papanicolaou smear with manual screening 6 5-15 [facility] Work Phone: Vital Signs Date Time Vital Sign Value Performing Clinician Faci lity 07-15-2025 13:57-0400 Body height 153.8 cm Lex Haq MD Work Phone: [facility] 07-15-2025 13:57-0400 Body mass index (BMI) [Ratio] 28.46 kg/m2 Lex Haq MD Work Phone: [facility] 07-15-2025 13:57-0400 Body weight 67.31 kg Lex Haq MD Work Phone: [facility] 07-15-2025 13:57-0400 Diastolic blood pressure 78 mm[Hg] Lex Haq MD Work Phone: [facility] 07-15-2025 13:57-0400 Heart rate 71 /min Lex Haq MD Work Phone: [facility] 07-15-2025 13:57-0400 Respiratory rate 16 /min Lex Haq MD Work Phone: [facility] 07-15-2025 13:57-0400 SaO2% (BldA) [Mass fraction] 97 % Lex Haq MD Work Phone: [facility] 07-15-2025 13:57-0400 Systolic blood pressure 112 mm[Hg] Lex Haq MD Work Phone: [facility] 02-24-2025 23:20-0400 Body mass index (BMI) [Ratio] 29 kg/m2 Dr. Jo Ann Lee MD Work Phone: [facility] 02-24-2025 23:20-0400 Body weight 69.[address] Jo Ann Lee MD Work Phone: [facility] 02-24-2025 22:57-0400 Body height 154.[address] Jo Ann Lee MD Work Phone: [facility] 02-24-2025 22:57-0400 Body temperature 97.8 [degF] Dr. Jo Ann Lee MD Work Phone: [facility] 02-24-2025 22:57-0400 Heart rate 103 /min Dr. Jo Ann Lee MD Work Phone: [facility] 02-24-2025 22:57-0400 Respiratory rate 20 /min Dr. Jo Ann Lee MD Work Phone: [facility] 02-24-2025 22:57-0400 SaO2% (BldA) [Mass fraction] 100 % Dr. Jo Ann Lee MD Work Phone: [facility] 09-15-2024 09:26-0500 Body height 154.1 cm Gracia Benton MANIPULATOR OPERATOR.OPEN DIE INSPECTOR Work Phone: [facility] 09-15-2024 09:26-0500 Body mass index (BMI) [Ratio] 28.23 kg/m2 Gracia Benton MANIPULATOR OPERATOR.OPEN DIE INSPECTOR Work Phone: [facility] 09-15-2024 09:26-0500 Body weight 67.04 kg Gracia [place] MANIPULATOR OPERATOR.OPEN DIE INSPECTOR Work Phone: [facility] 09-15-2024 09:26-0500 Diastolic blood pressure 64 mm[Hg] Gracia [place] MANIPULATOR OPERATOR.OPEN DIE INSPECTOR Work Phone: [facility] 09-15-2024 09:26-0500 Systolic blood pressure 118 mm[Hg] Gracia Benton MANIPULATOR OPERATOR.OPEN DIE INSPECTOR Work Phone: [facility] 07-09-2024 13:17-0400 Body height 154 cm Lex Haq MD Work Phone: [facility] 07-09-2024 13:17-0400 Body mass index (BMI) [Ratio] 27.89 kg/m2 Lex Haq MD Work Phone: 4(374)993-830870 [place] [address] 07-09-2024 13:17-0400 Body weight 66.13 kg Lex Haq MD Work Phone: 3(821)270-743348 [place] [address] 07-09-2024 13:17-0400 Diastolic blood pressure 70 mm[Hg] Lex Haq MD Work Phone: 8(853)037-649730 [address] 07-09-2024 13:17-0400 Heart rate 70 /min Lex Haq MD Work Phone: 7(266)701-214570 [place] [address] 07-09-2024 13:17-0400 Respiratory rate 16 /min Lex Haq MD Work Phone: 9(440)320-347148 [place] [address] 07-09-2024 13:17-0400 SaO2% (BldA) [Mass fraction] 99 % Lex Haq MD Work Phone: 3(534)881-025070 [place] [address] 07-09-2024 13:17-0400 Systolic blood pressure 110 mm[Hg] Lex Haq MD Work Phone: 9(201)054-867548 [place] [address] 12-02-2023 06:51-0500 Diastolic blood pressure 79 mm[Hg] Dr. Jim Lee Work Phone: [facility] 12-02-2023 06:51-0500 Heart rate 96 /min Dr. Jim Lee Work Phone: [facility] 12-02-2023 06:51-0500 Respiratory rate 20 /min Dr. Jim Lee Work Phone: [facility] 12-02-2023 06:51-0500 SaO2% (BldA) [Mass fraction] 98 % Dr. Jim Lee Work Phone: [facility] 12-02-2023 06:51-0500 Systolic blood pressure 138 mm[Hg] Dr. Jim Lee Work Phone: [facility] 12-02-2023 06:20-0500 Body temperature 98.5 [degF] Dr. Jim Lee Work Phone: [facility] 12-02-2023 06:11-0500 Body height 154.[address] Jim Lee Work Phone: [facility] 12-02-2023 06:11-0500 Body mass index (BMI) [Ratio] 29.4 kg/m2 Dr. Jim Lee Work Phone: [facility] 12-02-2023 06:11-0500 Body weight 70.[address] Jim Lee Work Phone: [facility] 11-07-2023 09:25-0500 Body height 154.[address] Jim Lee Work Phone: [facility] 11-07-2023 09:25-0500 Body mass index (BMI) [Ratio] 29.7 kg/m2 Dr. Jim Lee Work Phone: [facility] 11-07-2023 09:25-0500 Body weight 71.[address] Jim Lee Work Phone: [facility] 11-07-2023 09:25-0500 Diastolic blood pressure 89 mm[Hg] Dr. Jim Lee Work Phone: [facility] 11-07-2023 09:25-0500 Heart rate 73 /min Dr. Jim Lee Work Phone: [facility] 11-07-2023 09:25-0500 Respiratory rate 16 /min Dr. Jim Lee Work Phone: [facility] 11-07-2023 09:25-0500 Systolic blood pressure 153 mm[Hg] Dr. Jim Lee Work Phone: [facility] 09-04-2023 07:26-0400 Body height 153.7 cm Gracia Godoy APRN.CNP Work Phone: [facility] 09-04-2023 07:26-0400 Body weight 67.5 kg Gracia Benton MANIPULATOR OPERATOR.OPEN DIE INSPECTOR Work Phone: [facility] 09-04-2023 07:26-0400 Diastolic blood pressure 62 mm[Hg] Gracia Benton MANIPULATOR OPERATOR.OPEN DIE INSPECTOR Work Phone: [facility] 09-04-2023 07:26-0400 Systolic blood pressure 100 mm[Hg] [facility] [place] MANIPULATOR OPERATOR.OPEN DIE INSPECTOR Work Phone: [facility] 11-01-2022 20:21-0500 Diastolic blood pressure 81 mm[Hg] [facility] 11-01-2022 20:21-0500 Heart rate 82 /min [facility] 11-01-2022 20:21-0500 Respiratory rate 18 /min [facility] 11-01-2022 20:21-0500 SaO2% (BldA) [Mass fraction] 95 % [facility] 11-01-2022 20:21-0500 Systolic blood pressure 149 mm[Hg] [facility] 11-01-2022 19:45-0500 Inhaled oxygen flow rate 2 L/min [facility] 11-01-2022 19:26-0500 Inhaled oxygen concentration 2 % [facility] 11-01-2022 17:11-0500 Body height 154.94 cm [facility] 11-01-2022 17:11-0500 Body mass index (BMI) [Ratio] 27.9 kg/m2 [facility] 11-01-2022 17:11-0500 Body temperature 97.6 [degF] [facility] 11-01-2022 17:11-0500 Body weight 67.13 kg [facility] 06-08-2022 09:52-0400 Body height 155.1 cm Lex Haq MD Work Phone: [facility] 06-08-2022 09:52-0400 Body mass index (BMI) [Ratio] 28.47 kg/m2 Lex Haq MD Work Phone: [facility] 06-08-2022 09:52-0400 Body weight 68.49 kg Lex Haq MD Work Phone: [facility] 06-08-2022 09:52-0400 Diastolic blood pressure 78 mm[Hg] Lex Haq MD Work Phone: [facility] 06-08-2022 09:52-0400 Heart rate 54 /min Lex Haq MD Work Phone: [facility] 06-08-2022 09:52-0400 Respiratory rate 16 /min Lex Haq MD Work Phone: [facility] 06-08-2022 09:52-0400 SaO2% (BldA) [Mass fraction] 98 % Lex Haq MD Work Phone: [facility] 06-08-2022 09:52-0400 Systolic blood pressure 128 mm[Hg] Lex Haq MD Work Phone: [facility] Encounters Encounter Date Encounter Type Care Provider Facility Start: 07-15-2025 End: 07-15-2025 Office outpatient visit 25 minutes Lex Haq MD Work Phone: [facility] [place] Comment on above: Need for influenza v accination (Primary Dx) Start: 07-15-2025 ambulatory LEX HAQ Facility:[facility] Start: 07-15-2025 End: 07-15-2025 Subsequent hospital visit by physician Lex Haq MD Work Phone: [facility] [place] Comment on above: Arrived Start: 03-09-2025 End: 03-09-[address] Jo Ann Lee MD Work Phone: [facility] Work Phone: Start: 03-09-2025 End: 03-09-[address] Jo Ann Lee MD -Laboratory, [facility] Start: 03-09-2025 End: 03-09-2025 ambulatory Jo Ann Lee Facility:[facility] Start: 02-24-2025 End: 02-25-2025 Emergency department patient visit Jamal Crisostomo DO -Emergency Department Work Phone: Start: 11-10-2024 End: 11-10-2024 ambulatory Jo Ann Lee [facility] Start: 10-20-2024 End: 10-20-2024 ambulatory Jo Ann Lee Facility:[facility] Start: 09-15-2024 End: 09-15-2024 Telephone encounter Gracia Godoy APRN.OPEN DIE INSPECTOR Work Phone: OB/Gynecology Start: 09-15-2024 End: 09-15-2024 ambulatory GRACIA CHENGCALF Facility:[facility] Start: 09-15-2024 End: 09-15-2024 Patient encounter procedure Gracia Godoy APRN.OPEN DIE INSPECTOR Work Phone: OB/Gynecology Comment on above: Encounter for gyneco logical examination (general) (routine) without abnormal findings (Primary Dx); Encounter for screening mammogram for breast cancer Start: 09-15-2024 End: 09-15-2024 Patient encounter status Gracia Godoy APRN.OPEN DIE INSPECTOR Work Phone: [facility] Start: 09-03-2024 Encounter for genera l adult medical examination without abnormal findings Jo Ann Lee [facility] Start: 08-14-2024 End: 08-14-2024 ambulatory Jo Ann Lee Facility:[facility] Start: 08-13-2024 End: 08-[facility] Start: 07-09-2024 End: 07-09-2024 Office outpatient visit 15 minutes Lex Haq MD Work Phone: [facility] [place] Comment on above: Menopause (Primary D x); Screening for osteoporosis; Nonspecific abnormal results of function study of thyroid; Hypovitaminosis D Start: 03-03-2024 End: 03-03-[address] Jo Ann Lee Work Phone: [facility] Work Phone: Start: 03-03-2024 End: 03-03-[address] Jo Ann Lee Work Phone: [facility] Work Phone: Start: 02-25-2024 End: 02-25-[address] Jo Ann Lee Work Phone: [facility] Work Phone: Start: 02-25-2024 End: 02-25-[address] Jo Ann Lee Work Phone: [facility] Work Phone: Start: 12-02-2023 End: 12-02-2023 Emergency department patient [facility] Start: 11-12-2023 Non-patient / Non-visit Dr. Prieto Lee Work Phone: [facility] Start: 11-12-[address] Zan Lee [facility] Work Phone: Start: 11-09-2023 Non-patient / Non-visit Dr. Prieto Lee Work Phone: [facility] Start: 11-09-2023 End: 11-09-[address] Jim Lee Work Phone: [facility] Work Phone: Start: 11-09-2023 End: 11-09-[address] Jim Lee [facility] Work Phone: Start: 11-07-2023 End: 11-07-[address] Jim Lee Work Phone: [facility] Work Phone: Start: 10-18-2023 End: 10-18-[address] Jim Lee Work Phone: [facility] Work Phone: Start: 10-18-2023 End: 10-18-[address] Jim Lee Work Phone: [facility]-Outpatient Breast Imaging Work Phone: Start: 10-15-2023 End: 10-15-2023 Non-patient / Non-visit Dr. Jim Lee Work Phone: [facility] Work Phone: Start: 10-15-2023 End: 10-15-[address] Jim Lee Work Phone: [facility] Work Phone: Start: 10-15-2023 End: 10-15-[address] Jim Lee Work Phone: [facility]-Pulmonary Services/Neurology Work Phone: Start: 09-24-2023 Non-patient / Non-visit Dr. Prieto Lee Work Phone: [facility] Start: 09-21-2023 End: 09-21-[address] Jim Lee Work Phone: [facility] Work Phone: Start: 09-21-2023 End: 09-21-[address] Jim Lee Work Phone: [facility] Work Phone: Start: 09-21-2023 Non-patient / Non-visit Dr. Prieto Lee Work Phone: [facility] Start: 09-04-2023 End: 09-04-2023 Patient encounter procedure Gracia Godoy MANIPULATOR OPERATOR.OPEN DIE INSPECTOR Work Phone: OB/Gynecology Comment on above: Encounter for gyneco logical examination (general) (routine) without abnormal findings (Primary Dx); Encounter for screening mammogram for malignant neoplasm of breast Start: 09-04-2023 End: 09-04-2023 Patient encounter status Gracia Godoy MANIPULATOR OPERATOR.OPEN DIE INSPECTOR Work Phone: [facility] Work Phone: Start: 08-16-2023 End: 08-16-2023 ambulatory [facility] Work Phone: Start: 08-16-2023 End: 08-16-2023 Patient encounter procedure [facility] Work Phone: Start: 07-04-2023 End: 07-04-2023 Subsequent hospital visit by physician Lex Haq MD Work Phone: [facility] [place] Comment on above: Arrived Start: 06-29-2023 Telephone encounter Gracai angel MANIPULATOR OPERATOR.OPEN DIE INSPECTOR Work Phone: OB/Gynecology Comment on above: Appointment Start: 06-15-2023 End: 06-15-2023 ambulatory [facility] Work Phone: Start: 06-15-2023 End: 06-15-2023 Patient encounter procedure [facility] Work Phone: Start: 02-07-2023 End: 02-07-2023 ambulatory [facility] Work Phone: Start: 02-07-2023 End: 02-07-2023 [facility] Start: 11-14-2022 End: 11-15-2022 ambulatory JOSIAH HALEY DO Facility:B Start: 11-14-2022 End: 11-14-2022 Patient encounter procedure JOSIAH AMANDEEPLE DO [facility] Start: 11-01-2022 End: 11-01-2022 Emergency department patient visit [facility]Emergency Department Start: 10-17-2022 End: 10-17-2022 ambulatory [facility] Work Phone: Start: 10-17-2022 End: 10-17-2022 Patient encounter procedure [facility]-Outpatient Breast Imaging Start: 08-24-2022 End: 08-24-2022 ambulatory [facility] Work Phone: Start: 08-24-2022 End: 08-24-2022 Patient encounter procedure [facility]-Radiology, [place] Start: 06-08-2022 End: 06-08-2022 Office outpatient visit 15 minutes Lex Haq MD Work Phone: [facility] [place] Comment on above: Osteopenia, unspecif ied location (Primary Dx); Menopause; Hypovitaminosis D Start: 04-21-2022 End: 04-21-2022 Patient encounter [facility] Procedures Date Procedure Procedure Detail Performing Clinician Start: 07-15-2025 Dxa bone density brenda dy 1/> sites axial skel Lex Haq MD Work Phone: Start: 03-09-2025 Vitamin D, 25-hydrox y measurement Dr. Jo Ann Lee MD Work Phone: Comment on above: Vitamin D StatusDefi ciency: <20 ng/mL (50nmol/L)Insufficiency: 20-30 ng/mL (50-75 nmol/L)Sufficiency: 30-100 ng/mL (75-250 nmol/L)Toxicity: >100 ng/mL (>250 nmol/L) Start: 02-24-[address] Jo Ann Lee MD Work Phone: Start: 12-02-2023 Plain chest X-ray Dr. Manuela Lee Work Phone: Start: 11-09-2023 Radionuclide imaging of perfusion of myocardium under exercise stress Dr. Jim Lee Work Phone: Start: 10-18-2023 Screening mammography Laura Lee Work Phone: Start: 09-21-2023 CT angiography of co ronary arteries Dr. Jim Lee Work Phone: Start: 07-04-2023 Dxa bone density brenda dy 1/> sites axial skel Lex Haq MD Work Phone: Start: 06-15-2023 MRI of joint of lowe r extremity Start: 11-01-2022 Plain X-ray of shoulder Start: 11-01-2022 Plain X-ray of shoulder Start: 10-17-2022 Screening mammography Start: 08-24-2022 Plain X-ray of shoulder Bacteria identified in Urine by Culture Urine culture Plan of Treatment Date Care Activity Detail Author Start: 2033 RSV Vaccine (1 - 1-d ose 75+ series) RSV Vaccine (1 - 1-dose 75+ series) [facility] Start: 07-02-2029 Tetanus [facility] Start: 07-02-2029 Urine microalbumin profile DTaP,Tdap,Td Vaccine (2 - Td or Tdap) [facility] Start: 07-21-2026 End: 07-21-2026 Patient encounter procedure 07/21/2026 2:00 PM EDT Office Visit [facility] [address] [place] [address] Lex Haq MD [address] [place] [address] [facility] Start: 07-15-2026 Screening for osteoporosis DEXA SCAN DISCUSSION [facility] Start: 09-21-2025 End: 09-21-2025 Patient encounter procedure 09/21/2025 7:00 AM EST Office Visit OB/Gynecology [address] [place] [address] Gracia Godoy APRN.OPEN DIE INSPECTOR [address] [place], [place] [id number] Annual OB/Gynecology Comment on above: Annual Start: 09-15-2025 BP Controlled (<130/80) BP Controlle d (<130/80) [facility] Start: 07-15-2025 End: 07-15-2025 Patient encounter procedure [facility] Start: 07-06-2025 COVID-19 VACCINE ( season) COVID-19 VACCINE ( season) [facility] Start: 07-05-2025 Pneumococcal vaccination PNEUM OCOCCAL VACCINE SERIES (3 of 3 - PPSV23 or PCV20) [facility] Start: 02-25-2025 [facility] Start: 10-18-2024 Screening for malign ant neoplasm of breast Mammogram Screening [facility] Start: 09-04-2024 BP Controlled (<130/80) BP Controlle d (<130/80) [facility] Start: 07-09-2024 End: 07-09-2025 C-TELOPEPTIDE [facility] Comment on above: Expected: 07/09/2024 , Expires: 07/09/2025 Start: 07-09-2024 End: 07-09-2025 DXA Skeletal system.axial Views for bone density BONE DENSITY AXIAL (HIP, PELVIS, SPINE) Imaging Routine Menopause Screening for osteoporosis Expected: 07/09/2024, Expires: 07/09/2025 [facility] Comment on above: Expected: 07/09/2024 , Expires: 07/09/2025 Start: 07-09-2024 End: 07-09-2024 Patient encounter procedure 07/09/2024 1:20 PM EDT Office Visit [facility] [address] [place] [address] Lex Haq MD [address] [place] [address] [facility] Start: 07-06-2024 COVID-19 VACCINE () COVID-19 VACCINE () [facility] Start: 07-06-2024 Influenza vaccination INFLUENZA VACC INE (#1) [facility] Start: 07-04-2024 Screening for osteoporosis DEXA SCAN DISCUSSION [facility] Start: 2023 Advance Directive Discussion Advance Directive Discussion [facility] Start: 12-02-2023 [facility] Start: 12-02-2023 Plain chest X-ray Chest PA and Later al [facility] Start: 12-02-2023 XR Chest PA and Lateral [facility] Start: 10-17-2023 Mammography Mammogram Screening [facility] Start: 07-06-2023 Influenza vaccination C [facility] Start: 07-04-2023 End: 07-04-2023 Patient encounter procedure 07/04/2023 Office Visit Endocrinology, Diabetes & Metabolism Lex Haq MD [address] [place] [address] [facility] Start: 11-05-2022 DEPRESSION ASSESSMENT DEPRESSION ASS ESSMENT [facility] Start: 07-06-2022 Influenza vaccination INFLUENZA VACC INE (#1) [facility] Start: 06-08-2022 End: 06-08-2023 Bone density scan BONE DENSITY AXIAL (HIP, PELVIS, SPINE) Imaging Routine Osteopenia, unspecified location Menopause Expected: 06/08/2022, Expires: 06/08/2023 [facility] Comment on above: Expected: 06/08/2022 , Expires: 06/08/2023 Start: 05-23-2022 COVID-19 VACCINE (2 - Pfizer series) COVID-19 VACCINE (2 - Pfizer series) [facility] Start: 09-12-2021 Shingrix Vaccine (3 of 3) Shingrix Vaccine (3 of 3) [facility] Start: 09-12-2021 Zoster vaccine hzv l gabriela for subcutaneous use ZOSTER (SHINGLES) VACCINE (3 of 3) [facility] Start: 2018 RSV Vaccine (1 - 1-d ose 60+ series) RSV Vaccine (1 - 1-dose 60+ series) [facility] Start: 06-06-2010 DIABETES SCREEN DIABETES SCREEN [facility] Start: 06-06-2010 Diabetes Screening Diabetes Screenin g [facility] Start: 2008 SHINGRIX VACCINE (1 of 2) SHINGRIX VACCINE (1 of 2) [facility] Start: 2008 Zoster vaccine hzv l gabriela for subcutaneous use ZOSTER (SHINGLES) VACCINE (1 of 2) [facility] Start: 2003 COLOGUARD (FIT-DNA) COLOGUARD (FIT-D NA) [facility] Start: 2003 Colonoscopy [facility] Start: 2003 COLORECTAL CANCER SCREENING COLORECTAL CANCER SCREENING [facility] Start: [address] COLONOGRAPHY [facility] Start: 2003 FECAL OCCULT BLOOD FECAL OCCULT BLOO D [facility] Start: 2003 Lipid 1996 panel - S dedra or Plasma Lipid Screening [facility] Start: 2003 Lipid panel Lipid Screening [facility] Start: 2003 LIPID SCREEN LIPID SCREEN [facility] Start: 2003 Screening for malign ant neoplasm of colon [facility] Start: 2003 SIGMOIDOSCOPY SIGMOIDOSCOPY [facility] Start: 1998 Fasting lipid profile LIPID SCREENIN G [facility] Start: 1998 Lipid panel LIPID SCREENING [facility] Start: 1998 Mammography MAMMOGRAM [facility] Start: 1998 Screening for malign ant neoplasm of breast MAMMOGRAM SCREENING DISCUSSION [facility] Start: 1998 Screening mammography MAMMOGRA M SCREENING DISCUSSION [facility] Start: 1988 HPV TESTING HPV TESTING [facility] Start: 1979 PAP TESTING PAP TESTING [facility] Start: 1979 Screening for malign ant neoplasm of cervix CERVICAL CANCER SCREENING DISCUSSION [facility] Start: 1977 Third diphtheria, tetanus and acellular pertussis (DTaP) vaccination TDAP (ADULT) [facility] Start: 1977 Urine microalbumin profile DTAP,TDAP,TD (1 - Tdap) [facility] Start: 1976 Annual PCP Team Director Underwriter Sales deanne Disease Visit Annual PCP Team Chronic Disease Visit [facility] Start: 1976 Anxiety Screening Anxiety Screening [facility] Start: 1976 Depression Screening Depression Scre ening [facility] Start: 1976 HEPATITIS C SCREENING HEPATITIS C [facility] Start: 1976 Hepatitis C screening Hepatitis C [facility] Start: 1976 HIV SCREENING HIV SCREENING [facility] Start: 1976 HIV screening HIV Screening [facility] Start: 1976 Tetanus vaccination TETANUS [facility] Start: 1973 HIV screening HIV SCREENING DISCUSSION [facility] Start: 06-06-1959 COVID-19 VACCINE (#1) COVID-19 VACCI NE (#1) [facility] Start: 1958 Hepatitis C antibody , confirmatory test HEPATITIS C VIRUS SCREENING [facility] Start: 1958 Hepatitis C screening HEPATITI S C VIRUS SCREENING [facility] Beta lipoprotein subparticle measurement [facility] Cholesterol [Mass/volume] in Serum or Plasma [facility] Cholesterol in HDL [Mass/volume] in Serum or Plasma [facility] Lipoprotein.alpha [Moles/volume] in Serum or Plasma [facility] Lipoprotein.beta.sub part icle.small [Moles/volume] in Serum or Plasma [facility] Organ or system rela irineo test [facility] Patient Education [facility] Work Phone: Patient referral [facility] Work Phone: Triglyceride [Mass/volume] in Serum or Plasma [facility] Immunizations Immunization Date Immunization Notes Care Provider Phill fisher 07-15-2025 influenza, high dose seasonal, preservative-free Lex Haq MD Work Phone: [facility] 08-06-2023 influenza virus vaccine, unspecified formulation eLx Haq MD Work Phone: [facility] 08-04-2022 influenza virus vaccine, unspecified formulation Lex Haq MD Work Phone: [facility] 07-18-2021 zoster vaccine, unspecified formulation Lex Haq MD Work Phone: [facility] Payers Date Payer Category Payer Medicare [id number] 2024 Self-pay [id number] 2024 [place] [employer] PPO [id number] 2024-Present [address] [place] [address] [id number] 2024 Medicare (Managed Care) Medicare [employer] PPO [id number] 2024 Private Health Insurance [facility] [id number] 2023 Unknown [id number] 2022 Unknown [id number] 2013 Unknown [id number] 2013 Unknown [id number] 1958 Unknown [id number] 1958 Unknown [id number] 1958 Unknown [id number] Unknown [id number] Unknown [id number] Unknown [id number] Unknown [id number] Unknown [id number] Unknown [id number] Social History Date Type Detail Facility Start: 10-16-2017 End: 12-02-2023 Tobacco smoking status FLIS Unknown if ever smoked [facility] Start: 1960 Sex Assigned At Female [facility] Start: 09-04-2023 End: 02-24-2025 Tobacco smoking status NHIS Never smoked tobacco [facility] Start: 10-30-2018 End: 07-15-2025 Alcohol intake Current non-drinker of alcohol (finding) [facility] Start: 1960 Sex Assigned At Not on file [facility] Tobacco smoking status No Smoking Status Entered [facility] Start: 01-24-2007 Alcohol intake Not Asked [facility] Start: 07-04-2023 End: 07-15-2025 Gender identity Not on file [facility] Start: 07-04-2023 End: 07-15-2025 History of Social function [facility] Gender identity Identifies as fe male gender (finding) [facility] Start: 09-04-2023 Tobacco use and exposure Smokeless tobacco non-user [facility] Work Phone: Start: 09-04-2023 End: 09-15-2024 Alcohol intake Current drinker of alcohol (finding) [facility] National Score (1-100), lower number is lower risk 75 [facility] Start: 09-04-2023 Alcohol Comment glass of wine with dinner 3-5x per week [facility] Start: 12-08-2012 Sex Female (finding) [facility] NEGATED: Highlighted rowStart: NINF History of tobacco use Passive smoker [facility] Work Phone: Mental Status Date Assessment Result Facility 02-24-2025 Cognitive function Level Of Cons ciousness Awake;Alert;Appropriate;Follow s Commands [facility] Work Phone: 12-02-2023 Cognitive function Level Of Cons ciousness Awake;Alert;Appropriate;Follow s Commands [facility] Work Phone: 11-01-2022 Cognitive function Awake;Alert;Appropriat e [facility] Work Phone: Clinical Notes 06-08-2022 to 07-15-2025 Lex Haq MD - 07/15/2025 2:00 PM EDTTelephone Encounter - Sheyla Stevens LPN - 09/15/2024 10:34 AM ESTTelephone Encounter - Sheyla Stevens LPN - 09/15/2024 10:34 AM EST Note Date & Type Note Facility 07-15-2025 History of Presen t illness Narrative Subjective HPI 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 [...] anti-resorptive therapy - drug holiday now for 12 years. Over the past year, she has been doing very well. no new medical issues. Over the past year, no falls, no fractures. No new back pain; no height loss. She has had no kidney stones; she does not require steroids. She continues take 1 multivitamin per day, at a separate time of day she takes a calcium tablet. She 1000 units of vitamin D every other day. She eats yogurt every day, but otherwise is lactose intolerant. She exercises by walking and also training her Shelties - she has a new Sheltie, Mendoza. Otherwise, a full review of systems is negative I had the opportunity to personally view and analyze her DXA images performed today, and compared those to her images from 07/2023, done on the same LunScienion machine, same areas of interest: Region: g/cm2 T-Score Lumbar 1-3 Spine: 1.093 -0.6 Left Femoral Neck: 0.762 -2.0 Left Total Hip: 0.815 -1.5 Right Femoral Neck: 0.779 -1.9 Right Total Hip: 0.776 -1.8 COMPARISON WITH PREVIOUS EXAMS ON: July 04, 2023 Body Region: Prev BMD Current BMD Change (g/cm2) (g/cm2) (%) Lumbar 1-3 Spine: 1.116, 1.093, -2.1% Left Total Hip: 0.829, 0.815, -1.7% Right Total Hip: 0.799, 0.776, -2.9% She has a past medical history of [...] Tab tablet, Multiple Vitamins-Minerals (CENTRUM WOMEN PO), Liberty-3 Fatty Acids (FISH OIL PO), and rosuvastatin 10 MG tablet. Physical Exam Blood pressure 112/78, pulse 71, resp. rate 16, height 1.538 m (5' 0.55), weight 67.3 kg (148 lb 6.4 oz), SpO2 97%. In general, She appears well and in no acute distress; she appears healthy and fit. Pleasant and appropriate; A&O x 4. Head and neck exam reveals PERRL, anicteric sclera, no periorbital edema, extraocular muscles are intact, sclera are not blue. OP clear, mmm; no exposed jaw bone. Thyroid exam is normal to visualization and palpation without nodules; no anterior or posterior cervical lymphadenopathy. Cardiac exam reveals a regular rate and rhythm without murmurs. There is no vertebral pain, kyphosis or scoliosis. There are no tremors of the outstretched hands and biceps reflexes are normal, 2+. There is no pretibial rash or edema and no tenderness to palpation of long-bones. Assessment and Plan: 1) Osteopenia - she has risk factors for fracture in her mother's history of multiple vertebral compression fractures However, she has no other risk factors for fracture Her shoulder injury 10/2022 seems entirely appropriate given the mechanics of the fall Otherwise clinically stable over the past year I do not recommend she restart therapy at this time DXA today shows osteopenia; stable bone mass at all sites Her FRAX scores remain low; <20% and 1.7% We discussed calcium + vitamin D supplementation. labwork looks great We discussed the importance of fall avoidance and of avoiding anterior flexion strain to the spine. 2) Health main - flu vaccine given today documented in this encounter [facility] 09-15-2024 Telephone encounter Note Faxed Rx Breast Imaging to [facility] 09/15/2024 at 10:30 AM to [phone]. Sheyla Stevens LPN [facility] 09-15-2024 Miscellaneous Notes Faxed Rx Breast Imaging to [facility] 09/15/2024 at 10:30 AM to [phone]. Sheyla Stevens LPN documented in this encounter [facility] 09-15-2024 Note HNO ID: [id number] Author: GRACIA GODOY APRN.OPEN DIE INSPECTOR Service: ? Author Type: Nurse Practitioner Type: Progress Notes Filed: 09/15/2024 10:12 Note Text: Patient declined web programmerAlo Cadet is a 63 year old who presents for an annual gynecologic exam without complaints. Postmenopausal: Yes since age 43 HRT use: No. Last Pap: normal HPV: N/A History of abnormal pap: No Last mammogram: 2022 normal [facility] History of abnormal mammogram: No, fibrous tissue. Sexually active: Yes OB History T0 L0 SAB0 IAB0 Ectopic0 Multiple0 Live Births0 Surgical Territory Manager History LMP: Hysterectomy Age at Menarche: Age at First : Age at Menopause: Surgical Territory Manager History Comments: Sexual Activity: Not Currently; No partner data on record Contraception: No contraception data on record PAST MEDICAL HISTORY Diagnosis Date Asthma Essential hypertension Flat feet, bilateral History of left shoulder fracture Hypercholesterolemia PAST SURGICAL HISTORY Procedure Laterality Date FOOT RIGHT OP SURGERY KIDNEY SURGERY HX Left cyst removal PAST SURGICAL HISTORY OF excison precancerous mole TONSILLECTOMY AND ADENOIDECTOMY tonsillectomy TOTAL ABDOM HYSTERECTOMY 04/21/2004 Helena HoweXuqlgjl-tquoasti-wnlcwnxo [facility] PROCEDURE Left FAMILY HISTORY Problem Relation Age of Onset No Known Problems Sister No Known Problems Brother SOCIAL HISTORY Social History Tobacco Use Smoking status: Never Passive exposure: Never Smokeless tobacco: Never Vaping Use Vaping status: Never Used Substance Use Topics Alcohol use: Yes Comment: [...] skin retraction Allergies and current medication updated:Yes SENSITIVE EXAM: The sensitive examination was discussed with the Patient or Patient's Authorized Manager Fashion. As applicable, any other physician, advance practice provider, medical student, or other health professional student that will be observing or involved in the sensitive examination for educational or training purposes was discussed with the Patient or Authorized Manager Fashion. The Patient or Authorized Manager Fashion has agreed to proceed with the sensitive examination. (Sensitive examination includes inspection and/or palpation of the breasts, pelvis, prostate and anorectal regions). EXAM: There were no vitals taken for this visit. GENERAL: pleasant, female in no apparent distress [...] external genitalia normal, normal Bartholin's glands, urethra, [place]'s glands, no vulvar lesions, no cervical lesions, good vaginal support, physiologic discharge present, normal appearing perineal body and perianal region BIMANUAL: no adnexal masses, non-tender, and uterus surgically absent RECTOVAGINAL: rectovaginal exam negative for any masses or nodularity. NEURO: alert and oriented x3,exam grossly non-focal EXTREMITIES: normal ASSESSMENT/PLAN: 1) Health maintenance: Pap/HPV up to date. Mammogram ordered Nutrition, exercise and routine health maintenance exams reviewed. Calcium/Vitamin D supplementation information provided. Colon cancer screening: up to date with screening due @ 66 yo BMD: up to date 2) Follow up one year or sooner as needed Gracia Godoy APRN.SARAVANAN 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 Chichi is a 63 year old who presents for an annual gynecologic exam without complaints. Postmenopausal: Yes since age 43 HRT use: No. Last Pap: normal HPV: N/A History of abnormal pap: No Last mammogram: 2022 normal [facility] History of abnormal mammogram: No, fibrous tissue. Sexually active: Yes OB History T0 L0 SAB0 IAB0 Ectopic0 Multiple0 Live Births0 Surgical Territory Manager History LMP: Hysterectomy Age at Menarche: Age at First : Age at Menopause: Surgical Territory Manager History Comments: Sexual Activity: Not Currently; No partner data on record Contraception: No contraception data on record PAST MEDICAL HISTORY Diagnosis Date Asthma Essential hypertension Flat feet, bilateral History of left shoulder fracture Hypercholesterolemia PAST SURGICAL HISTORY Procedure Laterality Date FOOT RIGHT OP SURGERY KIDNEY SURGERY HX Left cyst removal PAST SURGICAL HISTORY OF excison precancerous mole TONSILLECTOMY & ADENOIDECTOMY <AGE 10 1964 tonsillectomy TOTAL ABDOM HYSTERECTOMY 04/21/2004 [place]ena HoweXiygvwb-soikifvf-xlippcqp [facility] PROCEDURE Left FAMILY HISTORY Problem Relation Age of Onset No Known Problems Sister No Known Problems Brother SOCIAL HISTORY Social History Tobacco Use Smoking status: Never Passive exposure: Never Smokeless tobacco: Never Vaping Use Vaping status: Never Used Substance Use Topics Alcohol use: Yes Comment: [...] skin retraction Allergies and current medication updated:Yes SENSITIVE EXAM: The sensitive examination was discussed with the Patient or Patient's Authorized Manager Fashion. As applicable, any other physician, advance practice provider, medical student, or other health professional student that will be observing or involved in the sensitive examination for educational or training purposes was discussed with the Patient or Authorized Manager Fashion. The Patient or Authorized Manager Fashion has agreed to proceed with the sensitive examination. (Sensitive examination includes inspection and/or palpation of the breasts, pelvis, prostate and anorectal regions). EXAM: There were no vitals taken for this visit. GENERAL: pleasant, female in no apparent distress [...] external genitalia normal, normal Bartholin's glands, urethra, Diamond Ridge's glands, no vulvar lesions, no cervical lesions, good vaginal support, physiologic discharge present, normal appearing perineal body and perianal region BIMANUAL: no adnexal masses, non-tender, and uterus surgically absent RECTOVAGINAL: rectovaginal exam negative for any masses or nodularity. NEURO: alert and oriented x3,exam grossly non-focal EXTREMITIES: normal ASSESSMENT/PLAN: 1) Health maintenance: Pap/HPV up to date. Mammogram ordered Nutrition, exercise and routine health maintenance exams reviewed. Calcium/Vitamin D supplementation information provided. 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 [...] anti-resorptive therapy - drug holiday now for 11 years. Over the past year, she has been doing very well. She is planning on retiring 01/2024, and one of her Shelties has been competing nationally. She had a significant fall 11/01/2022 - she was herding with her dogs, her foot got tangled in some rope; her foot was jerked backward and into the air, slamming her left shoulder and right knee onto a cement surface. She suffered extensive soft tissue injury, and did have a small shatter within the bone of her humerus which was not surgically managed; her surgeon felt that this fracture was entirely expected given her mechanism of injury. Over the past year, no falls, no fractures. No new back pain; no height loss. She continues take 1 multivitamin per day, at a separate time of day she takes a calcium tablet. She 1000 units of vitamin D every other day. She eats yogurt every day, but otherwise is lactose intolerant. 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 Otherwise, a full review of systems is negative In review of DXA from 06/2023: Region: g/cm2 T-Score Lumbar L1-L3 Spine: 1.116 -0.4 Left Femoral Neck: 0.824 -1.5 Left Total Hip: 0.829 -1.4 Right Femoral Neck: 0.816 -1.6 Right Total Hip: 0.799 -1.7 Labwork today (so far): Component Latest Ref Rng 07/09/2024 BUN 7 - 25 mg/dL 23 Creatinine 0.50 - 1.20 mg/dL 0.74 BUN/CREA RATIO 31 eGFR, CKD-EPI, Female >=60 mL/min/1.73m2 90 Albumin 3.5 - 5.0 g/dL 4.8 CALCIUM 8.6 - 10.5 mg/dL 9.8 TSH, HIGH-SENSITIVITY 0.550 - 4.780 uIU/mL 0.949 She has a past medical history of [...] Tab tablet, Multiple Vitamins-Minerals (CENTRUM WOMEN PO), Liberty-3 Fatty Acids (FISH OIL PO), and rosuvastatin 10 MG tablet. Physical Exam Blood pressure 110/70, pulse 70, resp. rate 16, height 1.54 m (5' 0.63), weight 66.1 kg (145 lb 12.8 oz), SpO2 99%. In general, She appears well and in no acute distress. Pleasant and appropriate. Head and neck exam reveals PERRL, anicteric sclera, no periorbital edema, extraocular muscles are intact, sclera are not blue. OP clear, mmm; no exposed jaw bone. Thyroid exam is normal to visualization and palpation without nodules; no anterior or posterior cervical lymphadenopathy. Cardiac exam reveals a regular rate and rhythm without murmurs. There is no vertebral pain, kyphosis or scoliosis. There are no tremors of the outstretched hands and biceps reflexes are normal, 2+. There is no pretibial rash or edema and no tenderness to palpation of long-bones. Assessment and Plan: 1)) Osteopenia - she has risk factors for fracture in her mother's history of multiple vertebral compression fractures However, she has no other risk factors for fracture Her shoulder injury 10/2022 seems entirely appropriate given the mechanics of the fall Otherwise clinically stable over the past year I do not recommend she restart therapy at this time I am monitoring C-telopeptide - if doubled over the past year, may restart Reclast We discussed calcium + vitamin D supplementation. labwork looks great We discussed the importance of fall avoidance and of avoiding anterior flexion strain to the spine. RTC 1 year and repeat DXA at that time documented in this encounter [facility] 09-04-2023 History of Presen t illness Narrative patient declined web programmer Chichi is a 62 year old who presents for an annual gynecologic exam without complaints. Postmenopausal: Yes -hysterectomy AGE 43 HRT use: No. Last Pap: normal History of abnormal pap: No Last mammogram: 2022 normal History of abnormal mammogram: No Sexually active: No OB History T0 L0 SAB0 IAB0 Ectopic0 Multiple0 Live Births0 Surgical Territory Manager History LMP: Hysterectomy Age at Menarche: Age at First : Age at Menopause: Surgical Territory Manager History Comments: Sexual Activity: Not Currently; No partner data on record Contraception: No contraception data on record PAST MEDICAL HISTORY Diagnosis Date Asthma Essential hypertension Flat feet, bilateral History of left shoulder fracture Hypercholesterolemia PAST SURGICAL HISTORY Procedure Laterality Date FOOT RIGHT OP SURGERY PAST SURGICAL HISTORY OF excison precancerous mole TONSILLECTOMY & ADENOIDECTOMY <AGE 10 1964 tonsillectomy TOTAL ABDOM HYSTERECTOMY 04/21/2004 Helena HoweAmkzqnl-opjuhefo-wgssqxwz [facility] PROCEDURE Left FAMILY HISTORY Problem Relation [...] external genitalia normal, normal Bartholin's glands, urethra, [place]'s glands, no vulvar lesions, physiologic discharge present, normal appearing perineal body and perianal region, cervix surgically absent BIMANUAL: no adnexal masses, non-tender, and uterus surgically absent RECTOVAGINAL: deferred. NEURO: alert and oriented x3,exam grossly non-focal EXTREMITIES: normal ASSESSMENT/PLAN: 1) Health maintenance: Pap/HPV screening no longer needed Mammogram ordered for [facility] Nutrition, exercise and routine health maintenance exams reviewed. Calcium/Vitamin D supplementation information provided. 2) Follow up one year or sooner as needed Gracia Godoy APRN.OPEN DIE INSPECTOR documented in this encounter [facility] 06-29-2023 Miscellaneous Notes Received records from [facility]. Placed on providers desk for review for appt. On 09/04/23. Nellie Dickson LPN \ documented in this encounter [facility] 11-14-2022 Note ORIGINAL EXAMINATION: MRI OF THE [...] by: Denis Guadalupe DO Preliminary Report By: Iglesia Will Electronically signed By Denis Guadalupe DO Dictated Date: 11/14/2022 10:08:33 AM Prelim Date: 11/14/2022 1:03:55 PM Sign Date: 11/14/2022 1:03:55 PM Ordering Provider: [facility] 11-14-2022 Note ORIGINAL EXAMINATION: MRI OF THE [...] by: Denis Guadalupe DO Preliminary Report By: Iglesia Will Electronically signed By Denis Guadalupe DO Dictated Date: 11/14/2022 10:08:33 AM Prelim Date: 11/14/2022 1:03:55 PM Sign Date: 11/14/2022 1:03:55 PM Ordering Provider: JOSIAH HALEY [facility] 06-08-2022 History of Presen t illness Narrative HPI 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 Physical Exam Blood pressure 128/78, pulse 54, resp. rate 16, height 1.551 m (5' 1.06), weight 68.5 kg (151 lb), SpO2 98 [...] from there documented in this encounter [facility] Discharge summary Note Date/Time December 02, 2023 6:17am [facility] Medical Records Department [address] [place] [address] Emergency Department Summary 12/02/23 MR#: [id number] Acct: [id number] Name: CHICHI DRAKE Rep #:[id number] : 1960 62 From: Mahesh Quiñonez MD PCP: Dr. Jim Lee MD Status: PRE ER Location: ED HPI HPI - URI History of Present Illness Chief Complaint: Cold Sx Detail of Chief Complaint: Upper respiratory tract infectious symptoms Informant: patient Onset/Context/Timing Onset: Days (November 26) Context: Sudden Onset Timing: Continuous and Waxes and wanes Quality: Hoarse voice, throat discomfort, dyspnea with intermittent wheezing. Current Severity: Mild Maximum Severity: Moderate Worsened by: Not Worsened By Swallowing, Eating Solids or Drinking Liquids Relieved by: Not Relieved By Tylenol or NSAIDs Associated Symptoms Associated Symptoms: Positive for Nasal Congestion, Nausea, Diarrhea, Nonproductive cough and -; Negative for Headache, Sinus Pressure, Myalgias, Chest Pain, Hemoptysis or Productive Cough Narrative Narrative: Patient is a 62-year-old woman with history of asthma, hypertension and hyperlipidemia. She presents because of upper respiratory tract symptoms that started November 26. She does complain of nasal congestion. She has a hoarse voice. She has a cough that is nonproductive. She denies pleuritic pain. She denies fever or chills. She denies headache, visual, ocular auditory symptoms. Denies neck pain or neckstiffness. She denies GI symptoms. She denies myalgias or arthralgias. She denies elevated temperature. She did a home COVID test which was negative. Prior similar symptoms: Yes Recent Illness/Hospitalization: No ROS ROS ED Constitutional Constitutional ED: Denies chills or fever(s) Eyes Eyes: Denies blurry vision or change in vision ENT ENT ED: Reports rhinorrhea and sore throat; Denies ear pain Cardiovascular Cardiovascular: Denies chest pain, orthopnea, palpitations or paroxysmal nocturnal dyspnea Respiratory/Chest Respiratory/Chest: Reports cough; Denies dyspnea, dyspnea on exertion, orthopneaor paroxysmal nocturnal dyspnea Gastrointestinal Gastrointestinal: Denies abdominal pain, melena or nausea Musculoskeletal Musculoskeletal: Denies arthralgias or myalgias Integumentary Denies rash Neurologic Neurologic: Denies headache(s) or weakness Endocrine Endocrinology: Denies cold intolerance or heat intolerance Hematologic/Lymphatic Hematologic/Lymphatic: Denies easy bleeding or easy bruising [facility] Medical History Asthma Atherosclerotic heart disease of havasupai coronary artery without angina pectoris Essential (primary) hypertension Finger dislocation Hiatal hernia Hyperlipidemia Home Medications albuterol sulfate 90 mcg/actuation aerosol inhaler (Ventolin HFA) 1 - 2 puff inhalation Q4H PRN PRN Sob &/Or Wheezing 08/24/17 [History Last Taken Unknown] aspirin 81 mg tablet,delayed release 81 mg PO DAILY@0800 08/24/17 [History Last Taken 08/18/17] calcium carbonate 600 mg calcium (1,500 mg) tablet 600 mg PO DAILY 08/24/17 [History Last Taken Unknown] cholecalciferol (vitamin D3) 125 mcg (5,000 unit) capsule 5,000 unit PO DAILY 08/24/17 [History Last Taken Unknown] oycmsltz-rax-ckzjd acid 0.4 mg-lycopene 300 mcg-lutein 250 mcg tablet (Centrum Silver) 1 ea PO DAILY 08/24/17 [History Last Taken Unknown] omega-3 fatty acids-fish oil 340 mg-1,000 mg capsule (Fish Oil) 1 ea PO DAILY 08/24/17 [History Last Taken Unknown] coenzyme Q10 100 mg capsule 100 mg PO DAILY 10/10/23 [History Last Taken Unknown] losartan 25 mg tablet 25 mg PO DAILY 10/10/23 [History Last Taken Unknown] rosuvastatin 10 mg tablet 20 mg PO DAILY 10/10/23 [History Last Taken Unknown] budesonide-formoterol HFA 160 mcg-4.5 mcg/actuation aerosol inhaler (Symbicort) 1 inh inhalation BID 12/02/23 [History Last Taken Unknown] Allergy/AdvReac Type Severity Reaction Status Date / Time ether [Ether] Allergy Other Verified 12/02/23 06:14 bupropion [From Contrave] AdvReac Intermediate Nausea Verified 12/02/23 06:14 lisinopril AdvReac Intermediate cough Verified 12/02/23 06:14 naltrexone [From Contrave] AdvReac Intermediate Nausea Verified 12/02/23 06:14 Surgical History History of hysterectomy S/P trigger finger release Social History Smoking Status: Never smoker alcohol intake: current alcohol intake frequency: holidays/special occasions only EXAM Physical Exam Const Vital Signs: 12/02/23 06:11 12/02/23 06:11 12/02/23 06:20 Temperature 98.5 F 98.5 F Temperature Source Oral Oral Pulse Rate 113 H 103 H Respiratory Rate 20 H 23 H Respiratory Effort Short of Breath Respiratory Pattern Tachypnea Blood Pressure 138/79 H 136/78 H Blood Pressure Mean 98 97 Pulse Ox 97 98 Oxygen Delivery Method Room Air Room Air Positive well nourished, well developed and obese General Appearance ED: well developed and NAD; Negative for cyanotic, diaphoretic or pallor Nutritional Appearance: obese HEENT Reports moist mucous membranes and dry mucous membranes HEENT Narrative: Nares patent. Posterior pharynx reveals postnasal drainage. Ears normal. normocephalic and atraumatic Mouth ED: Yes dry mucous membranes Mouth: dry mucous membranes Eyes PERRL and EOMs intact bilaterally Neck no lymphadenopathy, supple, no meningeal signs and no JVD Neck Narrative: Trachea is midline. There is no stridor. There is mild dysphonia. General: Negative for anterior neck swelling or lymphadenopathy Resp No normal respiratory effort Cardio S1 normal heart sound, S2 normal heart sound and no murmurs Rate: tachycardic Rhythm: regular rhythm GI non-tender, non-distended and no masses Auscultation: normoactive bowel sounds Back/Spine no CVA tenderness Extremity normal to inspection and full ROM General Extremety ED: Negative for cyanosis General Extremity: Negative for cyanosis Neuro oriented x3 and CN's II-XII intact bilaterally Sensorium / Orientation: alert Psych mental status grossly normal Skin General Skin Exam: Negative for jaundice or pallor Lesions: No no lesions MDM MDM MDM Narrative Medical decision making narrative: Patient's symptoms are suggestive of viral illness with laryngitis. Because patient has abnormal breath sounds on the right will obtain chest x-ray. If shehas pneumonia will place Blood work. History & Record Review Additional record(s) reviewed:: Prior outpatient record, Prior ED visit and Prior labs Radiography Chest X-Ray - ED: 2 View and Read by ED Physician (Independently interpreted by me at 0645 as negative. Cardiac silhouette and size normal. Mediastinum is normal. Lung parenchyma without infiltrate. There is no effusion. Osseous structures are unremarkable.) Treatment and Re-Evaluation Narrative: Patient was informed since her chest x-ray does not reveal any abnormality her symptoms are consistent with a viral illness. She probably will be ill for another 7 to 10 days. Discharge Plan Triage Chief Complaint: Cold Sx ED Provider: Mahesh Quiñonez Dx/Rx/DC Orders Clinical Impression: Laryngitis, acute, Upper respiratory infection with cough and congestion, Hyperlipidemia, Atherosclerotic heart disease of havasupai coronary artery without angina pectoris, Essential (primary) hypertension Instructions: ED Laryngitis, ED URI, Viral, No Abx (Adult) Prescriptions: No Action losartan 25 mg tablet 25 mg PO DAILY rosuvastatin 10 mg tablet 20 mg PO DAILY coenzyme Q10 100 mg capsule 100 mg PO DAILY aspirin 81 MG tablet 81 mg PO DAILY@0800 calcium carbonate 600 MG tablet 600 mg PO DAILY albuterol sulfate [Ventolin HFA] 1 INHALER inhaler 1 - 2 puff inhalation Q4H PRN PRN (Reason: Sob &/Or Wheezing) cholecalciferol (vitamin D3) 5,000 UNIT capsule 5,000 unit PO DAILY Centrum Silver 1 EACH tablet 1 ea PO DAILY Fish Oil 1 EACH capsule 1 ea PO DAILY budesonide-formoterol [Symbicort] 160-4.5 mcg/actuation HFA aerosol inhaler 1 inh inhalation BID Primary Care Provider: Jim Lee Referrals: Jim Lee MD [Primary Care Provider] - 1 Week if not improving Activity Restrictions/Additional Instructions: 1. You probably will be ill for another 7 to 10 days. 2. Antibiotics are not indicated at this time. If you are ill for an additional week antibiotics would be indicated. Disposition Disposition: Home, Self Care What to do if you have Problems For any increased pain, shortness of breath, bleeding, nausea or vomiting, chestpain, or any unexpected problems, contact your Primary Care Provider. Call [facility] ([phone]) or report to the closest Emergency Room. Call 911 if necessary. 12/02/23 0647 <Electronically signed by Mahesh Quiñonez MD> Cosigner Signature (if applicable): CC: Dr. Jim Lee MD ~ Signed [facility] Work Phone: Evaluation + Plan note No data available for this section [facility] Evaluation noteNo assessment information available [facility] Work Phone: Evaluation note* Diagnosis Osteopenia, unspecified location- Primary Menopause Symptomatic menopausal or female climacteric states Hypovitaminosis D Unspecified vitamin D deficiency [facility] Diagnosis Osteopenia, unspecified location Menopause Symptomatic menopausal or female climacteric states documented in this encounter [facility] note* Diagnosis Encounter for gynecological examination (general) (routine) without abnormal findings- Primary Encounter for screening mammogram for malignant neoplasm of breast Other screening mammogram documented in this encounter [facility] note* Diagnosis Onset Date Resolution Status Atherosclerotic heart diseas e of havasupai coronary artery without angina pectoris acute Essential (primary) hypertension acute Hyperlipidemia acute [facility] Work Phone: Evaluation note* Diagnosis Menopause- Primary Symptomatic menopausal or female climacteric states Screening for osteoporosis Special screening for osteoporosis Nonspecific abnormal results of function study of thyroid Nonspecific abnormal results of thyroid function study Hypovitaminosis D Unspecified vitamin D deficiency [facility] Diagnosis Encounter for gynecological examination (general) (routine) without abnormal findings- Primary Encounter for screening mammogram for breast cancer documented in this encounter [facility] note* Diagnosis Menopause Symptomatic menopausal or female climacteric states Screening for osteoporosis Special screening for osteoporosis [facility] Diagnosis Need for influenza vaccination- Primary Need for prophylactic vaccination and inoculation against influenza [facility] No data available for this section [facility] Hospital Discharge instructions Additional Instructions 1. You probably will be ill for another 7 to 10 days. 2. Antibiotics are not indicated at this time. If you are ill for an additional week antibiotics would be indicated.[facility] Work Phone: Reason for referral (narrative)No reason for referral information availableWGrand [facility] Work Phone: Reason for visit Narrative* Radiology (Routine) - New Request Specialty Diagnoses / Procedures Referred By Remy salazar Referred To Contact Diagnoses Menopause Screening for osteoporosis Procedures BONE DENSITY AXIAL (HIP, PELVIS, SPINE) Lex Haq MD Phone: tel: fax: Referral ID Status Reason Start Date Expiration Date V isits Requested Visits Authorized [id number] New Request 07/09/2024 08/03/2025 1 1 [facility] Chief Complaint and Reason for Visit Chief Complaint EORDER Chief Complaint Bursitis of right sh oulder Chief Complaint Bursitis of right sh oulder SCREENING Chief Complaint Bursitis of right sh oulder SCREENING fall Chief Complaint fall EORDER Chief Complaint Strain of muscle & t endon of posterior muscle Chief Complaint Strain of muscle & t endon of posterior muscle EORDER Chief Complaint Strain of muscle & t endon of posterior muscle EORDER E78.5 E78.5 Chief Complaint EORDER E78.5 E78.5 E78.5 Essential (primary) hypertension Chief Complaint EORDER E78.5 E78.5 E78.5 Essential (primary) hypertension Essential (primary) hypertension SCREENING Chief Complaint EORDER E78.5 E78.5 E78.5 Essential (primary) hypertension Essential (primary) hypertension SCREENING FAM HX OF CAD / HTN / ABN CCTA (RANNEY) Atherosclerotic heart disease of havasupai coronary a SCREENING Reason for Visit Atherosclerotic hear t disease of havasupai coronary artery without angina pectoris Essential (primary) hypertension Hyperlipidemia Chief Complaint EORDER E78.5 E78.5 E78.5 Essential (primary) hypertension Essential (primary) hypertension SCREENING FAM HX OF CAD / HTN / ABN CCTA (RANNEY) Atherosclerotic heart disease of havasupai coronary a SCREENING cold sx Reason for Visit Atherosclerotic hear t disease of havasupai coronary artery without angina pectoris Essential (primary) hypertension Hyperlipidemia Chief Complaint FAM HX OF CAD / HTN / ABN CCTA (RANNEY) Atherosclerotic heart disease of havasupai coronary a SCREENING cold sx NEED ORDER Reason for Visit Atherosclerotic hear t disease of havasupai coronary artery without angina pectoris Essential (primary) hypertension Hyperlipidemia Chief Complaint FAM HX OF CAD / HTN / ABN CCTA (RANNEY) Atherosclerotic heart disease of havasupai coronary a SCREENING cold sx Reason for Visit Atherosclerotic hear t disease of havasupai coronary artery without angina pectoris Essential (primary) hypertension Hyperlipidemia Chief Complaint Admit Date n/v/d, syncope February 24, 2025 10: 54pm Advance Directives No Advanced Directives Records Found Advance Directive Response Recorded Date/ Time Living Will No August 24 1:18pm Power of Fountain Clerk No August 24, 2017 1:18pm Advance Directive Response Recorded Date/ Time Living Will No August 24 12:18pm Power of Fountain Clerk No August 24, 2017 12:18pm Advance Directive Response Recorded Date/ Time Name of Medical Power of Fountain Clerk BERKLEY CONNER November 01, 2022 6:39pm Living Will Yes November 01 6:39pm Power of Fountain Clerk Yes November 01, 2022 6:39pm Advance Directive Response Recorded Date/ Time Living Will Yes November 01 7:39pm Power of Fountain Clerk Yes November 01, 2022 7:39pm Name of Medical Power of Fountain Clerk BERKLEY CONNER November 01, 2022 7:39pm Advance Directive Response Recorded Date/ Time Living Will Yes November 01 7:39pm Power of Fountain Clerk Yes November 01, 2022 7:39pm Advance Directive Response Recorded Date/ Time Living Will Yes November 01 6:39pm Power of Fountain Clerk Yes November 01, 2022 6:39pm Advance Directive Response Recorded Date/ Time Name of Medical Power of Fountain Clerk Dorene Leos December 02, 2023 6:11am Living Will Yes December 02 6:11am Power of Fountain Clerk Yes December 02, 2023 6:11am Advance Directive Response Recorded Date/ Time Name of Medical Power of Fountain Clerk Dorene Leos December 02, 2023 7:11am Living Will Yes December 02 7:11am Power of Fountain Clerk Yes December 02, 2023 7:11am Advance Directive Response Recorded Date/ Time Do you have a Healthcare Power of Fountain Clerk? No February 24, 2025 11:11pm Reason for Referral Specialty Diagnoses / Procedures Referred By Remy t Referred To Contact Diagnoses Osteopenia, unspecified location Menopause Procedures BONE DENSITY AXIAL (HIP, PELVIS, SPINE) OR DEXA,BONE DENSITY,AXIAL SKELETON Lex Haq MD [address] [place] [address] [address] [place] [address] Referral ID Status Reason Start Date Expiration Date V isits Requested Visits Authorized [id number] New Request 06/08/2022 07/03/2023 1 1 Referral ID Status Reason Start Date Expiration Date V isits Requested Visits Authorized [id number] Pending Review 07/05/2022 07/30/2023 1 1 Specialty Diagnoses / Procedures Referred By Contac t Referred To Contact Diagnoses Menopause Screening for osteoporosis Procedures BONE DENSITY AXIAL (HIP, PELVIS, SPINE) Lex Haq MD [address] [address] Referral ID Status Reason Start Date Expiration Date V isits Requested Visits Authorized [id number] New Request 07/09/2024 08/03/2025 1 1 Summary Purpose Family History No Family History Records FoundNo Family History Records FoundNo Family History Records FoundNo Family History Records Found Additional Source Comments Goals (unrecognized section and content) Goals may be documented in a n alternate sectionGoals may be documented in an alternate sectionGoals may be documented in an alternate sectionGoals may be documented in an alternate section No data available for this sectionGoals may be documented in an alternate sectionGoals may be documented in an alternate sectionGoals may be documented in an alternate sectionGoals may be documented in an alternate sectionGoals may be documented in an alternate sectionGoals may be documented in an alternate sectionGoals may be documented in an alternate sectionGoals may be documented in an alternate sectionGoals may be documented in an alternate sectionGoals may be documented in an alternate sectionGoals may be documented in an alternate section Reason for Visit (unrecogniz ed section and content) Reason Comments Follow-up 1 yr for osteopenia Reason Comments Appointment Specialty Diagnoses / Procedures Referred By Contac t Referred To Contact Diagnoses Osteopenia, unspecified location Menopause Procedures BONE DENSITY AXIAL (HIP, PELVIS, SPINE) OR DEXA,BONE DENSITY,AXIAL SKELETON Lex Haq MD [address] [address] Referral ID Status Reason Start Date Expiration Date V isits Requested Visits Authorized [id number] Pending Review 07/05/2022 07/30/2023 1 1 Reason Comments Yearly Exam Reason Comments Follow-up 1 Year follow-up Ost eopenia Reason Comments Well Woman Reason Comments Follow-up 1 Year follow-up Hyp othyroidism Care Teams (unrecognized sec tion and content) Iron Bender Relationship Specialty Start Date End Date Jo Ann Lee MD [address] [place] [address] PCP - General Family Medicine 02/24/13 Team Status: Active Member Role Status Dates Dr. Jim Lee MD Family Provider Active Dr. Jim Lee MD Primary Care Provider Activ e Team Status: Inactive Member Role Status Dates Dr. Jim Lee MD Primary Care Provider Activ e Dr. Aldo Roman DO Attending Provider, Kelechi leblanc Active Team Status: Inactive Member Role Status Dates Dr. Jim Lee MD Primary Care Provider, Attending Provider, Referring Provider Active Team Status: Inactive Member Role Status Dates Dr. Jim Lee MD Primary Care Provider Activ e Dr. Nicholas Miranda DPM Attending Provider, Referrin g Provider Active Iron Bender Relationship Specialty Start Date End Date Jo Ann Lee MD [address] [place], [place] [id number] PCP - General Family Medicine 04/26/16 Iron Bender Relationship Specialty Start Date End Date Jo Ann Lee MD [address] [place], [place] [address] PCP - General Family Medicine 02/24/13 Iron Bender Relationship Specialty Start Date End Date Jo Ann Lee MD [address] [facility] [place], [place] [address] PCP - General Family Medicine 04/26/16 Team Status: Active Member Role Status Dates Dr. Jim Lee MD Primary Care Provider, Referring Provider, Other Provider Active Dr. Owen Doe MD Attending Provider Active Team Status: Active Member Role Status Dates Dr. Jim Lee MD Primary Care Provider, Refe rring Provider Active Dr. Owen Doe MD Attending Provider Active Team Status: Active Member Role Status Dates Dr. Jim Lee MD Primary Care Provider, Refe rring Provider Active Dr. Kortney Camacho MD Attending Provider Activ e Team Status: Inactive Member Role Status Dates Dr. Jim Lee MD Primary Care Provider Activ e Gracia Godoy PRODUCT DELIVERY SPECIALIST, PRODUCT DELIVERY SPECIALIST-C Attending Provider, Referring P rovider Active Team Status: Inactive Member Role Status Dates Dr. Jim Lee MD Primary Care Provider, Refe rring Provider Active Dr. Owen Doe MD Attending Provider Active Team Status: Active Member Role Status Dates Dr. Jim Lee MD Primary Care Provider Activ e Dr. Owen Doe MD Attending Provider Active Team Status: Inactive Member Role Status Dates Dr. Jim Lee MD Primary Care Provider, Attending Provider, Referring Provider Active Dr. Owen Doe MD Other Provider Active Team Status: Active Member Role Status Dates Dr. Jim Lee MD Primary Care Provider Activ e Dr. Owen Doe MD Attending Provider, Referring Pro vider Active Team Status: Active Member Role Status Dates Dr. Jim Lee MD Primary Care Provider Activ e Dr. Aldo Nation MD Attending Provider Active Team Status: Inactive Member Role Status Dates Dr. Jim Lee MD Primary Care Provider Activ e Dr. Mahesh Quiñonez MD Emergency Provider Active Team Status: Active Member Role Status Dates Dr. Jo Ann Lee MD Family Provider Active Dr. Jo Ann Lee MD Primary Care Provider Acti ve Team Status: Inactive Member Role Status Dates Dr. Jo Ann Lee MD Primary Care Provider, Ref erring Provider Active Dr. Owen Doe MD Attending Provider Active Team Status: Active Member Role Status Dates Dr. Jo Ann Lee MD Primary Care Provider Acti ve Dr. Owen Doe MD Attending Provider Active Team Status: Active Member Role Status Dates Dr. Jo Ann Lee MD Primary Care Provider Acti ve Dr. Aldo Nation MD Attending Provider Active Team Status: Inactive Member Role Status Dates Dr. Jo Ann Lee MD Primary Care Provider, Attending Provider, Referring Provider Active Dr. Owen Doe MD Other Provider Active Team Status: Active Member Role Status Dates Dr. Jo Ann Lee MD Primary Care Provider Acti ve Dr. Owen Doe MD Attending Provider, Referring Pro vider Active Team Status: Inactive Member Role Status Dates Dr. Jo Ann Lee MD Primary Care Provider Acti ve Dr. Mahesh Quiñonez MD Attending Provider, Emergency Provi trevor Active Team Status: Inactive Member Role Status Dates Dr. Jo Ann Lee MD Primary Care Provider, Attending Provider, Referring Provider Active Iron Bender Relationship Specialty Start Date End Date Jo Ann Lee MD [address] [place], [place] [id number] PCP - General Family Medicine 02/24/13 Iron Bender Relationship Specialty Start Date End Date Jo Ann Lee MD [address] [place], [place] [address] PCP - General Family Medicine 04/26/16 Iron Bender Relationship Specialty Start Date End Date Jo Ann Lee MD [address] [place], [place] [id number] PCP - General Family Medicine 04/26/16 Team Status: Active Member Role Status Dates Dr. Jo Ann Lee MD Primary Care Provider Acti ve Team Status: Inactive Member Role Status Dates Dr. Jo Ann Lee MD Primary Care Provider Acti ve Start: February 24, 2025 End: February 25, 2025 Dr. Jamal Crisostomo DO Attending Provider Active Start: February 24, 2025 End: February 25, 2025 Dr. Jamal Crisostomo , Emergency Provider Active Start: February 24, 2025 End: February 25, 2025 Team Status: Inactive Member Role Status Dates Dr. Jo Ann Lee MD Primary Care Provider Acti ve Start: March 09, 2025 End: March 09, 2025 Dr. Jo Ann Lee MD Attending Provider Active Start: March 09, 2025 End: March 09, 2025 Dr. Jo Ann Lee MD Referring Provider Active Start: March 09, 2025 End: March 09, 2025 Iron Bender Relationship Specialty Start Date End Date Jo Ann Lee MD PCP - General Family Medicine 02/24/13 Iron Bender Relationship Specialty Start Date End Date Jo Ann Lee MD PCP - General Family Medicine 02/24/13 INFORMATION SOURCE (unrecogn ized section and content) DATE CREATED AUTHOR 11/15/2022 [facility] ([place]) DATE CREATED AUTHOR AUTHOR'S ORGANIZ ATION 09/16/2024 [facility] DATE CREATED AUTHOR AUTHOR'S ORGANIZ ATION 03/12/2025 [facility] DATE CREATED AUTHOR AUTHOR'S ORGANIZ ATION 07/18/2025 [facility] Source Comments (unrecognize d section and content) In the event this informatio n is protected by the Federal Confidentiality of Alcohol and Drug Abuse Patient Records regulations: The Federal rules restrict any use of the information to criminally investigate or prosecute any alcohol or drug abuse patient.[facility] the event this information is protected by the Federal Confidentiality of Alcohol and Drug Abuse Patient Records regulations: The Federal rules restrict any use of the information to criminally investigate or prosecute any alcohol or drug abuse patient.[facility] the event this information is protected by the Federal Confidentiality of Alcohol and Drug Abuse Patient Records regulations: The Federal rules restrict any use of the information to criminally investigate or prosecute any alcohol or drug abuse patient.[facility] the event this information is protected by the Federal Confidentiality of Alcohol and Drug Abuse Patient Records regulations: The Federal rules restrict any use of the information to criminally investigate or prosecute any alcohol or drug abuse patient.[facility] FOR RECORDS PERTAINING TO PATIENTS WHO ARE [...] BE BASED ON THE PRIMARY CLINICAL RECORDS. [facility] [email or web address] [email or web address]. provides no warranty or guarantee of the accuracy or completeness of information in this document.
== END | disposition home or self-care (01) ==
LOC: OPBI 07:45
PROVIDERS: PCP Family Medicine; Referring Provider Nurse Practitioner Family; Visit Provider Nurse Practitioner Family
DX: Z12.31 Encounter for screening mammogram for malignant neoplasm of breast (principal)
CPT/HCPCS: 77063; 77067